=== PATIENT | male | born 1970 | race Caucasian/White ===

== ENCOUNTER 2016-10-05 14:17 | Inpatient (IN) | payer MEDICAID, OTHER ==
[2016-10-05] MEDS ORDERED: SODIUM CHLORIDE 0.9% 1,000 ML IV STA ×2 (15:03→16:19)
--- NOTE | 2016-10-05 15:46 | ED ---
General Adult HPI - General Chief complaint: Psychiatric Symptoms Stated complaint: Sucidial Time Seen by Provider: 10/05/16 15:03 Source: patient, RN notes reviewed, old records reviewed Mode of arrival: ambulatory Limitations: no limitations - History of Present Illness Initial comments: This is a 46-year-old male ER with severe depression, severe depression with suicide attempt. Patient attempted suicide and Tylenol PM. This happened yesterday, patient really has no complaints no GI illnesses no diarrhea no nausea vomiting. Patient denies any other drugs or alcohol - Related Data Home Medications Medication Instructions Recorded Confirmed Acetaminophen/Diphenhydramine 1 tab PO HS 10/05/16 10/05/16 [Tylenol PM 500-25mg] Allergies Allergy/AdvReac Type Severity Reaction Status Date / Time No Known Allergies Allergy Verified 10/05/16 21:21 Review of Systems ROS Statement: Those systems with pertinent positive or pertinent negative responses have been documented in the HPI. ROS Other: All systems not noted in ROS Statement are negative. Past Medical History Past Medical History: Hypertension Additional Past Medical History / Comment(s): 05/11/15 Pt presented to [facility] ERR with starting yesterday of vomitting blood. He had several episodes of nausea and vomitting with diffuse abdominal pain. He also had some dizziness this morning. Pt is being admitted with clinical impression of alcoholic gastitis with hemorrhage, upper GI hemorrhage, abdominal pain, alcohol intoxication, alcohol withdrawl syndrome. History of Any Multi-Drug Resistant Organisms: None Reported Past Surgical History: No Surgical Hx Reported Additional Past Anesthesia/Blood Transfusion Reaction / Comment(s): Pt has never had surgery or blood transfusion. Past Psychological History: Anxiety, Depression, Panic Disorder Additional Psychological History / Comment(s): Pt resides with his significant other. He is independent. He uses no assistive devices. He does not drive-he uses the bus to get places. He has a mood disorder. He was seen in [facility] ER with overdose-was seen by psychiatric services once he was sober and deemed not a suicidal risk. Smoking Status: Current every day smoker Past Alcohol Use History: Daily, Heavy Additional Past Alcohol Use History / Comment(s): Pt states he now drinks 3-24 ounce beers a day. He used to add in liquor but no longer does this. He is a smoker and he started smoking at age [age]yrs. He is a ppd smoker. Past Drug Use History: Prescription Drug Abuse - Past Family History Father Family Medical History: No Reported History Additional Family Medical History / Comment(s): Father is living. Pt does not believe he has any health problem. Mother Family Medical History: No Reported History Additional Family Medical History / Comment(s): Mother is living. Pt does not believe she has any health problems other than she is a smoker. Sister(s) Family Medical History: No Reported History (Patient has 3 sisters no major medical problems.) Son(s) Family Medical History: No Reported History (One son no major medical problems.) General Exam Limitations: no limitations General appearance: alert, in no apparent distress Head exam: Present: atraumatic, normocephalic, normal inspection Eye exam: Present: normal appearance, PERRL, EOMI. Absent: scleral icterus, conjunctival injection, periorbital swelling ENT exam: Present: normal exam, mucous membranes moist Neck exam: Present: normal inspection. Absent: tenderness, meningismus, lymphadenopathy Respiratory exam: Present: normal lung sounds bilaterally. Absent: respiratory distress, wheezes, rales, rhonchi, stridor Cardiovascular Exam: Present: regular rate, normal rhythm, normal heart sounds. Absent: systolic murmur, diastolic murmur, rubs, gallop, clicks GI/Abdominal exam: Present: soft, normal bowel sounds. Absent: distended, tenderness, guarding, rebound, rigid Extremities exam: Present: normal inspection, full ROM, normal capillary refill. Absent: tenderness, pedal edema, joint swelling, calf tenderness Back exam: Present: normal inspection Neurological exam: Present: alert, oriented X3, CN II-XII intact Psychiatric exam: Present: normal affect, normal mood Skin exam: Present: warm, dry, intact, normal color. Absent: rash Course Vital Signs 10/05/16 10/05/16 10/05/16 14:29 17:00 20:44 Temperature 98.0 F 98.0 F Pulse Rate 85 75 89 Respiratory 18 18 18 Rate Blood Pressure 179/103 159/88 165/87 O2 Sat by Pulse 98 98 96 Oximetry - Reevaluation(s) Reevaluation #1: 10/05/16 15:45 Patient's medically clear for psychiatric evaluation EKG Findings - EKG Comments: EKG Findings:: EKG shows normal sinus rhythm is 21, NV 146, QRS 104, QTC 445 Medical Decision Making - Medical Decision Making 46 male seen by psychiatry, patient will be admitted for psychiatric evaluation and treatment - Lab Data Result diagrams: 10/05/16 15:37 10/05/16 15:37 Lab Results 10/05/16 10/05/16 10/05/16 Range/Units 15:37 15:37 15:37 WBC 8.0 (3.8-10.6) k/uL RBC 4.31 (4.30-5.90) m/uL Hgb 13.9 (13.0-17.5) gm/dL Hct 41.6 (39.0-53.0) % MCV 96.6 (80.0-100.0) fL MCH 32.3 (25.0-35.0) pg MCHC 33.4 (31.0-37.0) g/dL RDW 13.7 (11.5-15.5) % Plt Count 77 L (150-450) k/uL Neutrophils % 74 % Lymphocytes % 14 % Monocytes % 10 % Eosinophils % 1 % Basophils % 0 % Neutrophils # 5.9 (1.3-7.7) k/uL Lymphocytes # 1.1 (1.0-4.8) k/uL Monocytes # 0.8 (0-1.0) k/uL Eosinophils # 0.1 (0-0.7) k/uL Basophils # 0.0 (0-0.2) k/uL Manual Slide Review Performed Large Platelets Present Target Cells Present PT (9.0-12.0) sec INR (<1.1) Sodium 135 L (137-145) mmol/L Potassium 3.7 (3.5-5.1) mmol/L Chloride 96 L (98-107) mmol/L Carbon Dioxide 25 (22-30) mmol/L Anion Gap 14 mmol/L BUN 4 L (9-20) mg/dL Creatinine 0.60 L (0.66-1.25) mg/dL Est GFR (MDRD) Af Amer >60 (>60 ml/min/1.73 sqM) Est GFR (MDRD) Non-Af >60 (>60 ml/min/1.73 sqM) Glucose 78 (74-99) mg/dL Calcium 9.0 (8.4-10.2) mg/dL Total Bilirubin 0.9 (0.2-1.3) mg/dL AST 92 H (17-59) U/L ALT 103 H (21-72) U/L Alkaline Phosphatase 128 H (38-126) U/L Creatine Kinase (55-170) U/L Total Creatine Kinase 1176 H (55-170) U/L CK-MB (CK-2) 3.5 H* (0.0-2.4) ng/mL CK-MB (CK-2) Rel Index 0.3 Troponin I <0.012 (0.000-0.034) ng/mL Total Protein 7.7 (6.3-8.2) g/dL Albumin 4.4 (3.5-5.0) g/dL Lipase 342 H (23-300) U/L TSH (0.465-4.680) mIU/L Salicylates <1.0 mg/dL Urine Opiates Screen (NotDetected) Ur Oxycodone Screen (NotDetected) Urine Methadone Screen (NotDetected) Ur Propoxyphene Screen (NotDetected) Acetaminophen <10.0 ug/mL Ur Barbiturates Screen (NotDetected) U Tricyclic Antidepress (NotDetected) Ur Phencyclidine Scrn (NotDetected) Ur Amphetamines Screen (NotDetected) U Methamphetamines Scrn (NotDetected) U Benzodiazepines Scrn (NotDetected) Urine Cocaine Screen (NotDetected) U Marijuana (THC) Screen (NotDetected) Serum Alcohol 172 mg/dL 10/05/16 10/05/16 10/05/16 Range/Units 15:37 15:37 15:37 WBC (3.8-10.6) k/uL RBC (4.30-5.90) m/uL Hgb (13.0-17.5) gm/dL Hct (39.0-53.0) % MCV (80.0-100.0) fL MCH (25.0-35.0) pg MCHC (31.0-37.0) g/dL RDW (11.5-15.5) % Plt Count (150-450) k/uL Neutrophils % % Lymphocytes % % Monocytes % % Eosinophils % % Basophils % % Neutrophils # (1.3-7.7) k/uL Lymphocytes # (1.0-4.8) k/uL Monocytes # (0-1.0) k/uL Eosinophils # (0-0.7) k/uL Basophils # (0-0.2) k/uL Manual Slide Review Large Platelets Target Cells PT 9.8 (9.0-12.0) sec INR 1.0 (<1.1) Sodium (137-145) mmol/L Potassium (3.5-5.1) mmol/L Chloride (98-107) mmol/L Carbon Dioxide (22-30) mmol/L Anion Gap mmol/L BUN (9-20) mg/dL Creatinine (0.66-1.25) mg/dL Est GFR (MDRD) Af Amer (>60 ml/min/1.73 sqM) Est GFR (MDRD) Non-Af (>60 ml/min/1.73 sqM) Glucose (74-99) mg/dL Calcium (8.4-10.2) mg/dL Total Bilirubin (0.2-1.3) mg/dL AST (17-59) U/L ALT (21-72) U/L Alkaline Phosphatase (38-126) U/L Creatine Kinase (55-170) U/L Total Creatine Kinase (55-170) U/L CK-MB (CK-2) (0.0-2.4) ng/mL CK-MB (CK-2) Rel Index Troponin I (0.000-0.034) ng/mL Total Protein (6.3-8.2) g/dL Albumin (3.5-5.0) g/dL Lipase (23-300) U/L TSH 2.080 (0.465-4.680) mIU/L Salicylates mg/dL Urine Opiates Screen Not Detected (NotDetected) Ur Oxycodone Screen Not Detected (NotDetected) Urine Methadone Screen Not Detected (NotDetected) Ur Propoxyphene Screen Not Detected (NotDetected) Acetaminophen ug/mL Ur Barbiturates Screen Not Detected (NotDetected) U Tricyclic Antidepress Not Detected (NotDetected) Ur Phencyclidine Scrn Not Detected (NotDetected) Ur Amphetamines Screen Not Detected (NotDetected) U Methamphetamines Scrn Not Detected (NotDetected) U Benzodiazepines Scrn Not Detected (NotDetected) Urine Cocaine Screen Not Detected (NotDetected) U Marijuana (THC) Screen Not Detected (NotDetected) Serum Alcohol mg/dL 10/05/16 Range/Units 19:43 WBC (3.8-10.6) k/uL RBC (4.30-5.90) m/uL Hgb (13.0-17.5) gm/dL Hct (39.0-53.0) % MCV (80.0-100.0) fL MCH (25.0-35.0) pg MCHC (31.0-37.0) g/dL RDW (11.5-15.5) % Plt Count (150-450) k/uL Neutrophils % % Lymphocytes % % Monocytes % % Eosinophils % % Basophils % % Neutrophils # (1.3-7.7) k/uL Lymphocytes # (1.0-4.8) k/uL Monocytes # (0-1.0) k/uL Eosinophils # (0-0.7) k/uL Basophils # (0-0.2) k/uL Manual Slide Review Large Platelets Target Cells PT (9.0-12.0) sec INR (<1.1) Sodium (137-145) mmol/L Potassium (3.5-5.1) mmol/L Chloride (98-107) mmol/L Carbon Dioxide (22-30) mmol/L Anion Gap mmol/L BUN (9-20) mg/dL Creatinine (0.66-1.25) mg/dL Est GFR (MDRD) Af Amer (>60 ml/min/1.73 sqM) Est GFR (MDRD) Non-Af (>60 ml/min/1.73 sqM) Glucose (74-99) mg/dL Calcium (8.4-10.2) mg/dL Total Bilirubin (0.2-1.3) mg/dL AST (17-59) U/L ALT (21-72) U/L Alkaline Phosphatase (38-126) U/L Creatine Kinase 994 H (55-170) U/L Total Creatine Kinase (55-170) U/L CK-MB (CK-2) (0.0-2.4) ng/mL CK-MB (CK-2) Rel Index Troponin I (0.000-0.034) ng/mL Total Protein (6.3-8.2) g/dL Albumin (3.5-5.0) g/dL Lipase (23-300) U/L TSH (0.465-4.680) mIU/L Salicylates mg/dL Urine Opiates Screen (NotDetected) Ur Oxycodone Screen (NotDetected) Urine Methadone Screen (NotDetected) Ur Propoxyphene Screen (NotDetected) Acetaminophen ug/mL Ur Barbiturates Screen (NotDetected) U Tricyclic Antidepress (NotDetected) Ur Phencyclidine Scrn (NotDetected) Ur Amphetamines Screen (NotDetected) U Methamphetamines Scrn (NotDetected) U Benzodiazepines Scrn (NotDetected) Urine Cocaine Screen (NotDetected) U Marijuana (THC) Screen (NotDetected) Serum Alcohol mg/dL Disposition Clinical Impression: Suicidal ideation, Acute anxiety, Alcohol withdrawal, Alcohol intoxication Disposition: TRANSFER TO PSYCH HOSP/UNIT Condition: Fair
[2016-10-05 15:50] LABS: Basophils % (A) 0 %; CH 33.1; CHCM 34.4; Eosinophils # (A) 0.1 k/uL (0-0.7); Eosinophils % (A) 1 %; HCT 41.6 % (39.0-53.0); HDW 2.13; HGB 13.9 gm/dL (13.0-17.5); Luc # (Auto) 0.12; Luc % (Auto) 2; Lymphocytes # (A) 1.1 k/uL (1.0-4.8); Lymphocytes % (A) 14 %; MCH 32.3 pg (25.0-35.0); MCHC 33.4 g/dL (31.0-37.0); MCV 96.6 fL (80.0-100.0); Mean Platelet Volume 8.9; Monocytes # (A) 0.8 k/uL (0-1.0); Monocytes % (A) 10 %; Neutrophils # (A) 5.9 k/uL (1.3-7.7); Neutrophils % (A) 74 %; RBC 4.31 m/uL (4.30-5.90); RDW 13.7 % (11.5-15.5); WBC (Perox) 7.98
[2016-10-05 15:53] LABS: Prothrombin Time 9.8 sec (9.0-12.0)
[2016-10-05 15:59] LABS: ALT 103 U/L (21-72); AST 92 U/L (17-59); Acetaminophen <10.0 ug/mL; Alkaline Phosphatase 128 U/L (38-126); Anion Gap 14 mmol/L; Blood Urea Nitrogen 4 mg/dL (9-20); Carbon Dioxide 25 mmol/L (22-30); Chloride 96 mmol/L (98-107); Glucose 78 mg/dL (74-99); Non-African American GFR(MDRD) >60 (>60 ml/min/1.73 sqM); Potassium 3.7 mmol/L (3.5-5.1); Salicylate <1.0 mg/dL; Sodium 135 mmol/L (137-145); Total Bilirubin 0.9 mg/dL (0.2-1.3); Total Protein 7.7 g/dL (6.3-8.2)
[2016-10-05 16:02] LABS: Alcohol 172 mg/dL
[2016-10-05 16:12] LABS: Manual Review Performed
[2016-10-05 16:13] LABS: Large Platelets Present; Target Cells Present
[2016-10-05 16:14] LABS: Creatine Kinase 1176 U/L (55-170)
[2016-10-05 16:26] LABS: Troponin I <0.012 ng/mL (0.000-0.034)
[2016-10-05 16:28] LABS: Creatine Kinase MB 3.5 ng/mL (0.0-2.4)
[2016-10-05] MEDS: NICOTINE 21MG/24HR PATCH TRANSDERM STA (19:30)
[2016-10-05] MEDS ORDERED: LORazepam 2 MG/ML SYRINGE IV PRN ×3 (19:43)
[2016-10-06] MEDS ORDERED: MAG HYDROX/AL HYDROX/SIMETH 30 ML CUP PO PRN (00:27)
[2016-10-06] MEDS ORDERED: MAGNESIUM HYDROXIDE 2,400 MG/10 ML CUP PO PRN (00:27)
[2016-10-06] MEDS: LORazepam 1 MG TAB PO PRN ×2 (00:53→08:16)
[2016-10-06] MEDS ORDERED: cloNIDine HCL 0.2 MG TAB PO STA ×2 (05:39→14:52)
[2016-10-06] MEDS: NICOTINE 14MG/24HR PATCH TRANSDERM SCH (08:15)
[2016-10-06] MEDS: NICOTINE 21MG/24HR PATCH TRANSDERM STA ×2 (14:35→14:36)
[2016-10-06] MEDS ORDERED: OLANZapine 5 MG TAB PO STA (14:51)
--- NOTE | 2016-10-06 15:41 | P.HPMEDMHU ---
History of Present Illness H&P Date: 10/06/16 Chief Complaint: Depression. This is a 46-year-old male with a previous medical history significant for major depressive disorder who tried to overdose on Tylenol PM last night he took a bunch of pills and drank 2 beers and he ended up passing out hitting his head was seen and evaluated in the emergency department at [facility] yesterday he was admitted to the mental health unit for evaluation we are asked to see the patient for medical management. Sitting up in chair is complaining of increased pain left shoulder he denies any chest pain or shortness breath he has no abdominal pain nausea vomiting or diarrhea. Patient denies any headache he denies any blurred vision or double vision. Patient stated that he is feeling so depressed because he lost his fiance on . And he tried to kill himself many years ago but he was not successful. He did not go into details with me. Review of Systems Constitutional: Denies anorexia, Denies chronic headaches, Denies lethargy, Denies malaise, Denies weight gain, Denies weight loss Eyes: denies blurred vision, denies bulging eye, denies decreased vision, denies diplopia Ears, nose, mouth and throat: Denies dysphagia, Denies neck lump, Denies sore throat, Denies vertigo Cardiovascular: Denies chest pain, Denies decreased exercise tolerance, Denies dyspnea on exertion, Denies rapid heart beat, Denies shortness of breath, Denies syncope Respiratory: Denies congestion, Denies cough with sputum, Denies home oxygen, Denies snoring, Denies wheezing Gastrointestinal: Reports abdominal pain, Reports heartburn, Reports nausea, Reports vomiting, Denies bloating, Denies BRBPR, Denies coffee ground emesis, Denies hematemesis, Denies hematochezia, Denies melena Genitourinary: Denies dysuria Musculoskeletal: Denies myalgias Musculoskeletal: left: shoulder pain, shoulder stiffness, absent: ankle pain, ankle stiffness, ankle swelling, elbow pain, elbow stiffness, elbow swelling, foot pain, foot stiffness, foot swelling, hand pain, hand stiffness, hand swelling, hip pain, hip stiffness, hip swelling, knee pain, knee stiffness, knee swelling, shoulder swelling, wrist pain, wrist stiffness, wrist swelling Integumentary: Denies pruritus, Denies rash Neurological: Denies numbness, Denies weakness Psychiatric: Reports anxiety, Reports depression, Reports sleep disturbances, Reports suicidal ideation Endocrine: Denies fatigue, Denies weight change Past Medical History Past Medical History: Hypertension Additional Past Medical History / Comment(s): 05/11/15 Pt presented to [facility] ERR with starting yesterday of vomitting blood. He had several episodes of nausea and vomitting with diffuse abdominal pain. He also had some dizziness this morning. Pt is being admitted with clinical impression of alcoholic gastitis with hemorrhage, upper GI hemorrhage, abdominal pain, alcohol intoxication, alcohol withdrawl syndrome. History of Any Multi-Drug Resistant Organisms: None Reported Past Surgical History: No Surgical Hx Reported Additional Past Anesthesia/Blood Transfusion Reaction / Comment(s): Pt has never had surgery or blood transfusion. Past Psychological History: Anxiety, Depression, Panic Disorder Additional Psychological History / Comment(s): Pt resides with his significant other. He is independent. He uses no assistive devices. He does not drive-he uses the bus to get places. He has a mood disorder. He was seen in [facility] ER with overdose-was seen by psychiatric services once he was sober and deemed not a suicidal risk. Smoking Status: Current every day smoker (Patient smokes about half a pack every day he smoked since he was in his teens) Past Alcohol Use History: Daily, Heavy Additional Past Alcohol Use History / Comment(s): Pt states he now drinks 3-24 ounce beers a day. He used to add in liquor but no longer does this. He is a smoker and he started smoking at age [age]yrs. He is a ppd smoker. Past Drug Use History: Prescription Drug Abuse - Past Family History Father Family Medical History: No Reported History (Father 65-year-old has no major medical problems.) Additional Family Medical History / Comment(s): Father is living. Pt does not believe he has any health problem. Mother Family Medical History: No Reported History (Mother is 60-year-old has no major medical problems) Additional Family Medical History / Comment(s): Mother is living. Pt does not believe she has any health problems other than she is a smoker. Sister(s) Family Medical History: No Reported History (Patient has 3 sisters no major medical problems.) Son(s) Family Medical History: No Reported History (One son no major medical problems.) Medications and Allergies Home Medications Medication Instructions Recorded Confirmed Type Acetaminophen/Diphenhydramine 1 tab PO HS 10/05/16 10/05/16 History [Tylenol PM 500-25mg] Allergies Allergy/AdvReac Type Severity Reaction Status Date / Time No Known Allergies Allergy Verified 10/05/16 21:21 Physical Exam Vitals: Vital Signs Temp Pulse Pulse Resp BP BP Pulse Ox 10/06/16 14:39 96 16 134/86 10/06/16 08:20 99 16 126/89 10/06/16 07:21 100.8 F H 92 16 153/91 10/06/16 06:45 99 18 157/107 10/06/16 05:50 97.8 F 86 18 181/108 10/05/16 20:44 98.0 F 89 18 165/87 96 - Constitutional General appearance: no acute distress - EENT Eyes: anicteric sclerae, disc margins sharp, PERRLA, no ptosis, no scleral icterus, normal appearance (Bilateral ecchymosis around both orbits) ENT: hearing grossly normal, normal oropharynx, no thrush Ears: bilateral: normal - Neck Neck: no lymphadenopathy, normal ROM, no rigidity, no stridor, no thyromegaly Carotids: bilateral: upstroke normal Thyroid: bilateral: normal size - Respiratory Respiratory: bilateral: diminished, negative: dullness, rales, rhonchi, wheezing , prolonged expiration - Cardiovascular Rhythm: regular Heart sounds: normal: S1, S2 Abnormal Heart Sounds: no systolic murmur, no diastolic murmur, no rub, no S3 Gallop, no S4 Gallop, no click - Gastrointestinal General gastrointestinal: normal bowel sounds, soft, no splenomegaly, no tenderness, no umbilical hernia, no ventral hernia - Integumentary Integumentary: normal, normal turgor - Neurologic Neurologic: CNII-XII intact - Musculoskeletal Musculoskeletal: gait normal, strength equal bilaterally - Psychiatric Psychiatric: A&O x's 3, no appropriate affect, no intact judgment & insight Cranial Nerve Examination - Cranial Nerves Cranial Nerve I- Olfactory: Intact Cranial Nerve II- Optic: Intact Cranial Nerve III- Oculomotor: Intact Cranial Nerve IV- Trochlear: Intact Cranial Nerve V- Trigeminal: Intact Cranial Nerve - Abducens: Intact Cranial Nerve VII- Facial: Intact Cranial Nerve VIII- Auditory: Intact Cranial Nerve IX- Glossopharyngeal: Intact Cranial Nerve X- Vagus: Intact Cranial Nerve XI- Accessory: Intact Cranial Nerve XII- Hypoglossal: Intact Results CBC & Chem 7: 10/05/16 15:37 10/05/16 15:37 Assessment and Plan Plan: Assessment and plan: 1. Major depressive disorder with suicidal ideation with overdosed on Tylenol. There is no evidence of any acute abnormalities at this point in time. We'll continue to monitor the patient very closely. Patient was admitted to the mental health unit. He will be seen by psychiatry, we will start the patient on treatment with group therapy. 2. Bilateral ecchymosis of both orbits due to recent fall no evidence of any injury at this point in time we'll continue to monitor the patient very closely. 3. Elevated blood pressure without diagnosis of hypertension. Monitor the blood pressure very closely the last measurement was normal. Continue patient on clonidine 0.2 mg orally twice every day. 4. Left shoulder pain. We will obtain x-ray of the left shoulder. 5. Chronic tobacco use and dependence. Smoking cessation counseling an increased risk of CAD, CVA, and malignancy. 6. Chronic Etoh use and dependence. Abstinence from alcohol. 7. THC use. Stable at this time. 8. Thanks for the consult we will follow with you.
--- NOTE | 2016-10-06 16:33 | HP ---
DATE OF ADMISSION: 10/05/2016 IDENTIFYING DATA: Patient is a 46-year-old male, 1970. He is homeless. He presented through the emergency room. CHIEF COMPLAINT: The patient was depressed. He had suicidal thoughts. He had taken an overdose of a " handful of Tylenol", on the day prior to admission he had gotten dizzy and had a fall apparently breaking his nose. He had significant alcohol use. HISTORY OF PRESENTING ILLNESS: Patient reports long-term problems with depression. He had a psychiatric hospitalization. He had one psychiatric hospitalization about 3 years ago in [place] for depression with suicidal thinking. He is not currently on any psychotropic medication. He says his primary stress is that on , he was sleeping. He woke up for work and his girlfriend with whom he was living with had in her sleep presumably of an ME. Since then, he went into deep grief and depression. He has had problems with depression going back to his early 30s. He reports a lot of history of anxiety and a lot of panic attacks. He says of late the panic attacks themselves have quieted down. He was sleeping poorly. He has hopeless and helpless feelings. He has loss of motivation, energy and interest. 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 He has lost the apartment that the 2 of them were living in. He is currently homeless. He had persistent suicide thoughts since she . He had been on psychotropic medications in the past, though none currently. He is not involved in any mental health follow-up. He notes significant past problems with alcohol dependence. He has been in two rehab facilities with the last being about 3-1/2 years ago at [place] [facility]. He says following that admission, he was sober for about 6 months. Four years ago he had gone through a rehabilitation and was sober for year at that time. Currently he has been drinking on a daily basis. Typically he drinks about 10 beers a day. He has been sleeping poorly. He has loss of motivation, energy and interest. He denies issues with hallucinations or delusions, posttraumatic symptoms or obsessive-compulsive symptoms. He is admitted for further evaluation. Substance use history: As above. He denies use of other abusive substances besides alcohol. MEDICAL HISTORY: None. He has had 2 concussions in his 20s. He has had seizures as he describes "several times that were caused by a lack of sleep." Further medical history, review of systems and physical exam as per medical consultation. SOCIAL HISTORY: The patient is homeless. 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 MENTAL STATUS EXAM: Patient was somewhat disheveled in appearance. Eye contact was fair. Psychomotor activity was slow. Speech was monotone. It was noteworthy that the patient had prominent ecchymosis under each eye. He responded appropriately to questions. His thoughts were clear. He did not say a lot. His answers were brief. He was not spontaneous or interactive. His affect was flat. His mood depressed. He was significantly distressed. ASSESSMENT: Patient is diagnosed with major depression, severe grief reaction and alcohol dependence. He has a very limited social support network. He will need attention to alcohol detox and withdrawal as well as mood disorder and addressing his social difficulties. DIAGNOSES: 1. Major depression, chronic and recurrent. 2. Alcohol dependence, continuous. 3. Anxiety disorder. RECOMMENDATIONS: Patient will be admitted for comprehensive medical, psychiatric and psychosocial evaluation. We will make efforts to engage the patient in individual and group therapeutic activities. The patient has had a high blood pressure. Yesterday evening he was running pressures in the 160 to 100 range. He has received both Ativan and clonidine for withdrawal-related symptoms. His blood pressure as of 1439 is 134/86 with a pulse of 96. This morning he had a temperature at 7:20 a.m. of 100.8. He has been started on withdrawal protocol, utilizing [facility] parameters. I will start the patient on Zyprexa 5 mg 3 times a day. The aim of Zyprexa is to help reduce withdrawal symptoms and to reduce his acute grief reaction and severe anxiety symptoms, in addition I will start the patient on clonidine 0.2 mg twice a day. Clonidine is aimed at managing hypertension as well as helping ameliorate withdrawal symptoms. We will focus on stabilization and discharge planning.
[2016-10-06] MEDS: OLANZapine 5 MG TAB PO SCH ×2 (16:38→20:30)
--- NOTE | 2016-10-06 17:54 | XR ---
EXAMINATION TYPE: XR shoulder complete LT DATE OF EXAM: 10/06/2016 5:47 PM COMPARISON: NONE HISTORY: Shoulder pain TECHNIQUE: 3 views FINDINGS: I see no fracture nor dislocation. Joint spaces are normal. There are no pathologic calcifi cations. IMPRESSION: Negative left shoulder exam.
[2016-10-06] MEDS: cloNIDine HCL 0.2 MG TAB PO SCH (20:30)
[2016-10-07] MEDS: LORazepam 1 MG TAB PO PRN (03:37)
[2016-10-07] MEDS: NICOTINE 14MG/24HR PATCH TRANSDERM SCH (08:11)
[2016-10-07] MEDS: OLANZapine 5 MG TAB PO SCH ×2 (08:11→16:20)
[2016-10-07] MEDS: cloNIDine HCL 0.2 MG TAB PO SCH ×2 (08:12→21:18)
[2016-10-07] MEDS: ACETAMINOPHEN TAB 325 MG TAB PO PRN ×2 (14:47→19:02)
[2016-10-07] MEDS ORDERED: OLANZapine 5 MG TAB PO PRN (16:49)
[2016-10-07] MEDS: OLANZapine 10 MG TAB PO SCH (21:19)
[2016-10-08] MEDS: ACETAMINOPHEN TAB 325 MG TAB PO PRN ×3 (03:46→16:31)
--- NOTE | 2016-10-08 08:10 | PN ---
DATE OF SERVICE: 10/07/2016 CHIEF COMPLAINT: The patient was depressed. He had suicidal thoughts. He had taken an overdose of a " handful of Tylenol", on the day prior to admission he had gotten dizzy and had a fall apparently breaking his nose. He had significant alcohol use. INTERVAL HISTORY: Patient has been doing fair. He continues to be quite withdrawn. He does come out in the day area. He wanders about. He attends groups. Typically he presents in rather bland withdrawn way. He will contribute to the group discussion. He still seems withdrawn. At times he has been tearful. It is noted that this morning at 3:30 in the morning, he received Ativan 1 mg for alcohol withdrawal and anxiety, though his vital signs have been stable with no signs of alcohol detox or withdrawal issues and his CIWA has been scored as showing minimal withdrawal issues. In fact his CIWA at 1030 on the fourth was one. Patient today says he is doing about the same. He does not see any improvement in his mood. He has continued to attend groups. His CIWA score remains low. He does not interact with others, though he seems to keep himself out on the unit a fair amount of the time. He has not had change in his general health. He tolerates his psychotropic medications. MENTAL STATUS: Patient was in the day area. He gave fair eye contact. Psychomotor activity was slow. Speech is monotone. He answered questions with 1 or 2 word responses. His affect was flat. His mood reserved. He seemed somewhat distressed and worried. ASSESSMENT: I will continue the current diagnosis and treatment plan. We will continue psychotropic medications the same. However, I will increase his Zyprexa from 5 mg 3 times a day up to 10 mg twice a day. I would note that there is little indication for medications for alcohol withdrawal. Both vital signs and other signs of withdrawal have not been present. I will discontinue Ativan. I will add Zyprexa 5 mg b.i.d. p.r.n. for anxiety. We will continue to focus on stabilization and discharge planning.
[2016-10-08] MEDS: NICOTINE 14MG/24HR PATCH TRANSDERM SCH (08:22)
[2016-10-08] MEDS: cloNIDine HCL 0.2 MG TAB PO SCH ×2 (08:23→21:00)
[2016-10-08] MEDS: OLANZapine 10 MG TAB PO SCH (08:23)
[2016-10-08] MEDS ORDERED: traZODone HCL 100 MG TAB PO PRN (13:12)
--- NOTE | 2016-10-08 14:21 | P.PN ---
Progress Note - Text SUBJECTIVE: Patient endorses:poor appetite with 25 LBS weight loss since August,poor sleep despite having Zyprexa,recurrent dreams about his girlfriend , also endorses hands tremors,lot of guilt feeling towards girlfriend "We were doing lot of [place] and Hydrocodone ,I found out that she bought pain medications with 300 dollars before she in her sleep " lot of resentment between patient and her family ,patient was staying in [facility] for last 3-4 weeks, does not have job or support system in the area .he has one daughter 4 years old living in [place] with patient ex sridevi"I did not see her for two years" Patient is feeling hopeless and helpless ,insight to his SA is limited MENTAL STATUS EXAM: Patient is disheveled ,poor grooming ,rhodes and moustache ,unkept,speech is coherent ,tearful when talking about his girlfriend ,denies psychotic features or andrea ,endorses suicidal ideation and wish ,psychomotor retardation ,limited insight PLAN: 1)Discontinue Zyprexa ,start Celexa for Depression 2) Start Neurontin for anxiety and alcoholism 3) Start Trazodone PRN for sleep 4)Encourage groups participation ,will continue to monitor suicidal ideation and level of depression
[2016-10-08] MEDS: GABAPENTIN 100 MG CAP PO SCH ×2 (16:30→21:00)
[2016-10-08] MEDS: LORazepam 1 MG TAB PO PRN (16:31)
[2016-10-09] MEDS: ACETAMINOPHEN TAB 325 MG TAB PO PRN ×3 (06:11→18:40)
[2016-10-09] MEDS: NICOTINE 14MG/24HR PATCH TRANSDERM SCH (08:30)
[2016-10-09] MEDS: CITALOPRAM HYDROBROMIDE 20 MG TAB PO SCH (08:30)
[2016-10-09] MEDS: cloNIDine HCL 0.2 MG TAB PO SCH ×2 (08:30→21:35)
[2016-10-09] MEDS: GABAPENTIN 100 MG CAP PO SCH (08:30)
--- NOTE | 2016-10-09 09:36 | P.PN ---
Subjective Principal diagnosis: SUBJECTIVE: Patient endorses poor appetite , middle insomnia,feeling overwhelmed with ongoing stress :loss of girl friend ,no income ,no housing and unable to maintain job ,patient was tearful talking about being estranged from family for at least 3-4 years, his mother in [place] as well as two of his siblings , sister living in [place] ,patient does not have any support system ,patient endorses feeling helpless and struggling with lot of guilt feeling He stated that he used to have Trazodone 300 mg for depression and sleep and was effective,he endorses hands tremors "Most of my life ,even when I was sober ",reports pain in left Shoulder MENTAL STATUS EXAM: Patient is disheveled ,poor grooming ,rhodes and moustache ,unkept,speech is coherent ,tearful when talking about his girlfriend ,denies psychotic features or andrea ,endorses suicidal ideation and wish ,psychomotor retardation ,somatic preoccupied ,insight and judgment are limited ASSESSMENT: Patient is still endorsing severe depression ,grief and high anxiety PLAN: Increase Neurontin for anxiety ,trazodone as schedule dose for sleep ,monitor any withdrawals symptoms ,continue Celexa 20 mg daily ,encourage participation in groups therapy Objective - Vital Signs Vital signs: Vital Signs Temp 97.6 F 10/08/16 06:09 Pulse 90 10/09/16 06:15 Resp 18 10/09/16 06:15 BP 120/85 10/09/16 06:15 Pulse Ox 96 10/05/16 20:44 - Labs CBC & Chem 7: 10/05/16 15:37 10/05/16 15:37
[2016-10-09] MEDS: LORazepam 1 MG TAB PO PRN ×2 (10:31→21:35)
[2016-10-09] MEDS: GABAPENTIN 300 MG CAP PO SCH ×2 (16:18→21:35)
[2016-10-09] MEDS: traZODone HCL 50 MG TAB PO SCH (21:35)
[2016-10-10] MEDS: NICOTINE 14MG/24HR PATCH TRANSDERM SCH (09:15)
[2016-10-10] MEDS: cloNIDine HCL 0.2 MG TAB PO SCH ×2 (09:15→20:36)
[2016-10-10] MEDS: GABAPENTIN 300 MG CAP PO SCH ×3 (09:15→20:36)
[2016-10-10] MEDS: CITALOPRAM HYDROBROMIDE 20 MG TAB PO SCH (09:15)
[2016-10-10] MEDS: LORazepam 1 MG TAB PO PRN (09:17)
[2016-10-10] MEDS: IBUPROFEN 800 MG TAB PO PRN ×2 (09:18→16:34)
--- NOTE | 2016-10-10 12:58 | P.PN ---
Progress Note - Text SUBJECTIVE: Patient endorses severe depression with suicidal ideation "I wish not waking up in morning so I can be with my girlfriend",stated that he does see her in [place] "I know it is not real but I am seeing her here especially evening time:, endorsing hopeless and helpless feeling ,guilt feeling ,poor concentration and easy distracted PER NURSING STAFF:patient slept 6 hours ,participating in groups activities MENTAL STATUS EXAM: Patient is disheveled ,poor grooming ,rhodes and moustache ,unkept,speech is coherent ,tearful when talking about his girlfriend , seeing his girl friend on the unit,endorses suicidal ideation and wish , psychomotor retardation ,somatic preoccupied ,insight and judgment are limited ASSESSMENT: Patient is still endorsing severe depression and complicated grief PLAN: Increase Celexa to 40 mg daily ,continue Neurontin and Trazodone,decrease PRN Ativan,encourage participation in groups therapy,will consider adding low dose of anti psychotic if symptom will not improve with higher dose of Celexa
[2016-10-10] MEDS: LORazepam 0.5 MG TAB PO PRN (16:35)
[2016-10-10] MEDS: traZODone HCL 50 MG TAB PO SCH (20:36)
[2016-10-11] MEDS: CITALOPRAM HYDROBROMIDE 20 MG TAB PO SCH (09:19)
[2016-10-11] MEDS: cloNIDine HCL 0.2 MG TAB PO SCH ×3 (09:19→20:42)
[2016-10-11] MEDS: GABAPENTIN 300 MG CAP PO SCH ×3 (09:19→20:41)
[2016-10-11] MEDS: NICOTINE 14MG/24HR PATCH TRANSDERM SCH (09:19)
--- NOTE | 2016-10-11 14:46 | P.PN ---
Progress Note - Text SUBJECTIVE: Patient endorses:poor sleep ,nightmares ,crying spell, guilt feeling ,does see his girlfriend and "Sometimes I can hear her voice calling me",rates his depression 05/12 ,10 being the worse,still endorsing suicidal ideation "I want to be with her" Patient is feeling hopeless and helpless ,insight to his SA is limited MENTAL STATUS EXAM: Patient is disheveled ,poor grooming ,rhodes and moustache ,unkept,speech is coherent ,tearful when talking about his girlfriend ,denies psychotic features or andrea ,endorses suicidal ideation and wish ,psychomotor retardation ,limited insight PLAN: Adding low dose Abilify as augmentation ,continue Citalopram ,Trazodone and Neurontin Encourage groups participation ,will continue to monitor suicidal ideation and level of depression
[2016-10-11] MEDS: LORazepam 0.5 MG TAB PO PRN (16:30)
[2016-10-11] MEDS: IBUPROFEN 800 MG TAB PO PRN (19:26)
[2016-10-11] MEDS: traZODone HCL 50 MG TAB PO SCH (20:41)
[2016-10-12] MEDS: cloNIDine HCL 0.2 MG TAB PO SCH ×2 (08:41→21:25)
[2016-10-12] MEDS: GABAPENTIN 300 MG CAP PO SCH ×3 (08:41→21:26)
[2016-10-12] MEDS: NICOTINE 21MG/24HR PATCH TRANSDERM SCH (08:41)
[2016-10-12] MEDS: LORazepam 0.5 MG TAB PO PRN (08:41)
[2016-10-12] MEDS: IBUPROFEN 800 MG TAB PO PRN ×2 (08:41→16:14)
[2016-10-12] MEDS: CITALOPRAM HYDROBROMIDE 20 MG TAB PO SCH (08:41)
[2016-10-12] MEDS ORDERED: ARIPiprazole 2 MG TAB PO SCH (09:00)
--- NOTE | 2016-10-12 14:18 | P.PN ---
Progress Note - Text SUBJECTIVE: Patient endorses severe depression with suicidal ideation ,lot of anger and complain towards some of staff , somatic c/o and rates his left shoulder pain "Motrin is not strong enough",patient had hx of opium abuse and I discussed with him cross addiction ,patient verbalized understanding ,endorsing hopeless and helpless feeling ,guilt feeling related to of his girl friend of three years PER NURSING STAFF:patient slept 6 hours ,participating in groups activities, still asking for PRN Ativan for anxiety MENTAL STATUS EXAM: Patient is casually dressed ,poor grooming ,rhodes and moustache ,,speech is coherent ,irritable mood and angry demeanor, ,endorses suicidal ideation and wish ,psychomotor agitation ,somatic preoccupied ,insight and judgment are limited ASSESSMENT: Patient is still endorsing depression ,anxiety and suicidal ideation PLAN: 1) Discontinue Ativan ,start PRN Vistaril for anxiety 2) Increase Abiligy to 5 mg as augmentation 3) Continue :Celexa ,Trazodone and Neurontin ,same doses 4) Monitor suicidal ideation on daily basis
[2016-10-12] MEDS: hydrOXYzine PAMOATE 25 MG CAP PO PRN (16:14)
[2016-10-12] MEDS: traZODone HCL 50 MG TAB PO SCH (21:25)
[2016-10-12] MEDS: ACETAMINOPHEN TAB 325 MG TAB PO PRN (21:28)
--- NOTE | 2016-10-13 09:14 | P.PN ---
Progress Note - Text Interval history: The patient is found in the hallway he follows me to an interview room. He was admitted to the mental health unit with acute suicidal ideation. He states prior to this admission he had been off his medication for numerous months and he also suffered a traumatic event with his fiance dying the day before [place]. He states he feels depressed he is tearful he has hopeless thinking and he continues to have suicidal thinking. We reviewed his medications he has no questions regarding them. He reports attending groups. Mental status exam: The patient is alert he seated calmly he has limited eye contact. He is dressed in his own clothing hygiene grooming fair. He endorses a depressed mood with ongoing suicidal thoughts. He is tearful during the interview. He otherwise maintains a very bland affect. He is reporting no homicidal ideation there is no report of psychosis. He does not appear hypomanic or manic there is no agitated behavior. He demonstrates no verbal or physical aggressiveness. Insight and judgment limited. He is oriented to person place and date. Plan: The patient will continue on his current psychotropic medications. Vital signs reviewed. We will continue to monitor him for safety he is encouraged to continue participating in the milieu. He requires continued psychiatric hospitalization for acute safety reasons.
[2016-10-13] MEDS: ARIPiprazole 5 MG TAB PO SCH (09:30)
[2016-10-13] MEDS: NICOTINE 21MG/24HR PATCH TRANSDERM SCH (09:30)
[2016-10-13] MEDS: GABAPENTIN 300 MG CAP PO SCH ×3 (09:30→21:10)
[2016-10-13] MEDS: hydrOXYzine PAMOATE 25 MG CAP PO PRN (09:30)
[2016-10-13] MEDS: cloNIDine HCL 0.2 MG TAB PO SCH ×2 (09:30→21:10)
[2016-10-13] MEDS: CITALOPRAM HYDROBROMIDE 20 MG TAB PO SCH (09:30)
[2016-10-13] MEDS: IBUPROFEN 800 MG TAB PO PRN ×2 (09:31→21:10)
[2016-10-13] MEDS: traZODone HCL 50 MG TAB PO SCH (21:10)
[2016-10-14] MEDS: ARIPiprazole 5 MG TAB PO SCH (08:58)
[2016-10-14] MEDS: cloNIDine HCL 0.2 MG TAB PO SCH ×2 (08:58→21:41)
[2016-10-14] MEDS: GABAPENTIN 300 MG CAP PO SCH ×3 (08:58→21:41)
[2016-10-14] MEDS: CITALOPRAM HYDROBROMIDE 20 MG TAB PO SCH (08:58)
[2016-10-14] MEDS: NICOTINE 21MG/24HR PATCH TRANSDERM SCH (08:58)
[2016-10-14] MEDS: hydrOXYzine PAMOATE 25 MG CAP PO PRN (08:59)
[2016-10-14] MEDS: IBUPROFEN 800 MG TAB PO PRN ×2 (08:59→16:20)
--- NOTE | 2016-10-14 12:05 | P.PN ---
Progress Note - Text Interval history: The patient is found in the hallway he follows me to an interview room. He reports he continues to feel very depressed he continues to have hopelessness thinking and suicidal thoughts. He reports that the mornings started off better but after breakfast he starts having thoughts of his loss and that things will not get better. He describes having some shoulder pain and requests Motrin. He has nobody for support so he states he's received no phone calls or visits. Mental status exam: The patient is alert he is dressed in his own clothing hygiene grooming fair. He endorses a depressed mood with hopelessness thinking and ongoing suicidal thoughts. He endorses no thoughts of harming others she is reporting no auditory or visual hallucinations. There is no evidence of hypomanic or manic symptoms no evidence of psychosis. He demonstrates no verbal or physical aggressiveness. Thought process is linear he demonstrates no tangential thinking, loose associations or flight of ideas. Insight and judgment limited. He is oriented to person place and date. Plan: The patient will continue on his current psychotropic medications. I will add Motrin as needed for pain. We will continue to monitor him for safety and encourage his participation in the milieu. Vital signs reviewed.
[2016-10-14] MEDS: ACETAMINOPHEN TAB 325 MG TAB PO PRN (12:09)
[2016-10-14] MEDS: traZODone HCL 50 MG TAB PO SCH (21:41)
[2016-10-15] MEDS: CITALOPRAM HYDROBROMIDE 20 MG TAB PO SCH (08:59)
[2016-10-15] MEDS: GABAPENTIN 300 MG CAP PO SCH ×3 (08:59→21:04)
[2016-10-15] MEDS: NICOTINE 21MG/24HR PATCH TRANSDERM SCH (08:59)
[2016-10-15] MEDS: ARIPiprazole 5 MG TAB PO SCH (09:00)
[2016-10-15] MEDS: cloNIDine HCL 0.2 MG TAB PO SCH ×2 (09:00→21:04)
--- NOTE | 2016-10-15 14:28 | P.PN ---
Progress Note - Text SUBJECTIVE: Patient endorses depression with suicidal ideation "I am the same ,I am still suicidal",I discussed treatment options and possibility to change medications , he replied "It is helping but only 25%",he is somatic preoccupied and asking to have [place] "I just need it twice a day "I tried to discuss his cross addiction but he became very defensive ,irritable mood "I was very agitated for last couple of days ,one of patient was disrespectful " Patient stated that Vistaril is helping his anxiety PER NURSING STAFF:patient slept 4-6 hours ,participating in groups activities MENTAL STATUS EXAM: Patient is disheveled ,poor grooming ,rhodes and moustache ,unkept,speech is coherent ,,endorses suicidal ideation and wish ,psychomotor retardation , somatic preoccupied ,insight and judgment are limited ASSESSMENT: Patient is still endorsing depression and irritable mood ,drugs seeking for opium medication PLAN:Increase Neurontin for pain and as mood stabilizer ,continue rest of psychotropic medications. We will continue to monitor him for safety he is encouraged to continue participating in the milieu. He requires continued psychiatric hospitalization for acute safety reasons.
[2016-10-15] MEDS: IBUPROFEN 800 MG TAB PO PRN (14:53)
[2016-10-15] MEDS: hydrOXYzine PAMOATE 25 MG CAP PO PRN (14:55)
[2016-10-15] MEDS: traZODone HCL 50 MG TAB PO SCH (21:04)
[2016-10-16] MEDS: cloNIDine HCL 0.2 MG TAB PO SCH (06:02)
[2016-10-16] MEDS: NICOTINE 21MG/24HR PATCH TRANSDERM SCH (09:28)
[2016-10-16] MEDS: CITALOPRAM HYDROBROMIDE 20 MG TAB PO SCH (09:28)
[2016-10-16] MEDS: ARIPiprazole 5 MG TAB PO SCH ×2 (09:29→16:11)
[2016-10-16] MEDS: GABAPENTIN 300 MG CAP PO SCH ×3 (09:29→20:55)
[2016-10-16] MEDS: IBUPROFEN 800 MG TAB PO PRN ×2 (09:29→16:11)
--- NOTE | 2016-10-16 10:57 | P.PN ---
Progress Note - Text Interval history: He slept through night ,still endorsing depression , hopeless thinking and he continues to have suicidal thinking. He endorses paranoia and suspicious feeling "I am a loner person ,I can not trust people ,",denies any hallucination as he does feel that adding Abilify is helping "I DO NOT SEE MY GIRL FRIEND SO OFTEN" We reviewed his medications he has no questions regarding them. He reports attending groups. VITALS:Temp:97.5 ,Pulse :75 ,Respiration:16 ,Blood Pressure:92/51 Mental status exam: The patient is alert he seated calmly he has limited eye contact. He is dressed in his own clothing hygiene grooming fair. He endorses a depressed mood with ongoing suicidal thoughts. He is tearful during the interview. He otherwise maintains a very bland affect. He is reporting no homicidal ideation ,some paranoias. He does not appear hypomanic or manic there is no agitated behavior. He demonstrates no verbal or physical aggressiveness. Insight and judgment limited. He is oriented to person place and date. Plan: Will increase Abilify to 5 mg BID ,continue rest of medications regime. his blood Pressure running low ,will decrease Catapress dose and continue to monitor Vitals We will continue to monitor him for safety he is encouraged to continue participating in the milieu. He requires continued psychiatric hospitalization for acute safety reasons.
[2016-10-16] MEDS: cloNIDine HCL 0.1 MG TAB PO SCH (20:55)
[2016-10-16] MEDS: traZODone HCL 50 MG TAB PO SCH (20:55)
[2016-10-17] MEDS: CITALOPRAM HYDROBROMIDE 20 MG TAB PO SCH (08:44)
[2016-10-17] MEDS: NICOTINE 21MG/24HR PATCH TRANSDERM SCH (08:44)
[2016-10-17] MEDS: IBUPROFEN 800 MG TAB PO PRN ×2 (08:45→21:09)
[2016-10-17] MEDS: GABAPENTIN 300 MG CAP PO SCH ×3 (08:45→20:48)
[2016-10-17] MEDS: ARIPiprazole 5 MG TAB PO SCH ×2 (08:45→16:57)
[2016-10-17] MEDS: cloNIDine HCL 0.1 MG TAB PO SCH ×2 (08:45→20:48)
[2016-10-17] MEDS: ACETAMINOPHEN TAB 325 MG TAB PO PRN (16:16)
--- NOTE | 2016-10-17 17:17 | P.PN ---
Progress Note - Text Interval history: . He reports he continues to feel depressed, he continues to have suicidal thoughts."I THOUGHT ABOUT SUICIDE TWICE TODAY ,YESTERDAY WAS ALL DAY LONG" He reports that the mornings started off better but after breakfast he starts having thoughts of his loss and that things will not get better. . He has nobody for support so he states he's received no phone calls or visits. Mental status exam: The patient is alert he is dressed in his own clothing hygiene grooming fair. He endorses a depressed mood and ongoing suicidal thoughts. He endorses no thoughts of harming others she is reporting no auditory or visual hallucinations. There is no evidence of hypomanic or manic symptoms no evidence of psychosis. He demonstrates no verbal or physical aggressiveness. Thought process is linear he demonstrates no tangential thinking, loose associations or flight of ideas. Insight and judgment limited. He is oriented to person place and date. Plan: The patient will continue on his current psychotropic medications. We will continue to monitor him for safety and encourage his participation in the milieu.
[2016-10-17] MEDS: traZODone HCL 50 MG TAB PO SCH (20:48)
[2016-10-18] MEDS: hydrOXYzine PAMOATE 25 MG CAP PO PRN (10:52)
[2016-10-18] MEDS: cloNIDine HCL 0.1 MG TAB PO SCH ×2 (10:52→21:07)
[2016-10-18] MEDS: CITALOPRAM HYDROBROMIDE 20 MG TAB PO SCH (10:52)
[2016-10-18] MEDS: GABAPENTIN 300 MG CAP PO SCH ×3 (10:52→21:07)
[2016-10-18] MEDS: NICOTINE 21MG/24HR PATCH TRANSDERM SCH (10:52)
[2016-10-18] MEDS: ARIPiprazole 5 MG TAB PO SCH ×2 (10:52→17:04)
[2016-10-18] MEDS: IBUPROFEN 800 MG TAB PO PRN ×2 (10:53→21:09)
--- NOTE | 2016-10-18 16:29 | P.PN ---
Progress Note - Text Interval history: . He reports he continues to feel "SAD AND ANXIOUS ",he stated that he felt suicidal "Once after breakfast",reports high anxiety "Lot of new peoples and I am having bad social anxiety" Mental status exam: The patient is alert he is dressed in his own clothing hygiene grooming fair. He endorses a depressed mood and ongoing suicidal thoughts. He endorses no thoughts of harming others she is reporting no auditory or visual hallucinations. There is no evidence of hypomanic or manic symptoms no evidence of psychosis. He demonstrates no verbal or physical aggressiveness. Thought process is linear he demonstrates no tangential thinking, loose associations or flight of ideas. Insight and judgment limited. He is oriented to person place and date. Plan: The patient will continue on his current psychotropic medications. We will continue to monitor him for safety and encourage his participation in the milieu.
[2016-10-18] MEDS: traZODone HCL 50 MG TAB PO SCH (21:07)
[2016-10-18 21:12] VITALS: RESP 16
[2016-10-19 06:35] VITALS: TEMP 98
[2016-10-19] MEDS: CITALOPRAM HYDROBROMIDE 20 MG TAB PO SCH (09:05)
[2016-10-19] MEDS: GABAPENTIN 300 MG CAP PO SCH (09:05)
[2016-10-19] MEDS: NICOTINE 21MG/24HR PATCH TRANSDERM SCH ×2 (09:05→09:06)
[2016-10-19] MEDS: ARIPiprazole 5 MG TAB PO SCH (09:06)
[2016-10-19] MEDS: cloNIDine HCL 0.1 MG TAB PO SCH (09:06)
[2016-10-19 10:04] VITALS: BP 107/63; PULSE 84
--- NOTE | 2016-10-19 21:58 | DS ---
DATE OF ADMISSION: 10/05/2016 DATE OF DISCHARGE: 10/19/2016 CONSULT PHYSICIAN: Margaret. CONSULTING PROVIDER: Dr. Kwok. CONSULT REASON: Medical management. DO YOU WANT CONSULTING PROVIDER NOTIFIED: Yes. DISCHARGE DIAGNOSES: 1. Major depression disorder, recurrent, in partial remission. 2. Alcohol use disorder. 3. History of opium use disorder. 4. Cluster B personality disorder, borderline versus antisocial personality disorder. For brief summary of the admission, the patient was admitted to the mental health unit from the emergency room for depression and suicidal ideation. For complete history and physical examination, please refer to my initial dictation on October 06. HOSPITAL COURSE: the patient was admitted to the Mental Health Unit n voluntary basis. He was started on CIWA for alcohol detox. His blood pressure was running high despite that he had been controlled by Ativan. We did add Catapres. After 4 days I discontinued CIWA as it was 1. I kept him on Catapres. The patient was started on antidepressant to treat his depression. I gradually increased his citalopram to 40 mg daily. As he was complaining of trouble sleeping at night, I did add trazodone 150 mg at bedtime, that was very effective; however, patient was very somatic, preoccupied, had been cleared for throughout the 2 week stay, as he has been grieving the loss of his girlfriend who unexpectedly from opiate pain medication at [facility]. So, I did add Abilify as augmentation 5 milligrams twice a day. Patient was able to tolerate this. A couple of times he did ask me to put him on [place], however, I did discuss with him that the past admission he was addicted to opiate pain medication and according to him, he has been clean for the last couple of months. I did not put him on any opiate pain, but he did agree to start Motrin 800 as needed and Neurontin 600 three times a day. Patient was also complaining about staff or complaining that he had anxiety and he was not getting Ativan as before. He claims that he has been having social phobia and not able to attend groups because of the social phobia. I did add Vistaril as needed for his anxiety. In general the patient was drug seeking throughout his stay, but easy to set boundaries and limits on his behavior. He did participate in most of the group therapy and milieu activity. The 7th grade social studies teacher met with him a couple of times and we did arrange mcc as he has been homeless for the last couple of months. MENTAL STATUS EXAMINATION: Patient is alert, good eye contact. Speech is spontaneous nonpressured. Thought process is linear, at times circumstantial. He denied any homicidal or suicide ideation or intent or plan. He does not have access to firearms. 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 There is no evidence of psychosis or andrea or hypomania. Insight and judgment improving. Cognitive ability has remained stable across the hospitalization. There was no verbal or physical aggression observed. PLAN: The patient will be discharged from the mental health unit today. Patient will follow-up with [facility]. Patient will be given one month supply for Celexa 40 mg daily, trazodone 150 mg at bedtime for sleep, Abilify 5 mg twice a day, Motrin 800 as needed for pain, Neurontin 600 three times a day, Catapres or Clonidine 0.1 twice a day, hydroxyzine or Vistaril 25 mg every 8 hours p.r.n. for anxiety. Patient was instructed to abstain completely from alcohol. I did discuss with him the risk of alcohol on his mental and physical health and he did verbalize understanding. Patient also was instructed to abstain completely from any habit-forming drugs. Patient was instructed to return to the emergency room if any acute safety concerns.
== END 2016-10-19 13:56 | disposition home or self-care (01) | DRG 885 ==
LOC: EC 14:17 → 3MHU 20:31
PROVIDERS: ADMIT Psychiatry & Neurology Psychiatry; ATTEND Psychiatry & Neurology Psychiatry
DX: F33.9 Major depressive disorder, recurrent, unspecified (principal); R45.851 Suicidal ideations; I10 Essential (primary) hypertension; F10.239 Alcohol dependence with withdrawal, unspecified; F17.200 Nicotine dependence, unspecified, uncomplicated; F40.10 Social phobia, unspecified; F41.0 Panic disorder [episodic paroxysmal anxiety]; F43.20 Adjustment disorder, unspecified; F60.3 Borderline personality disorder; F60.89 Other specific personality disorders; G47.00 Insomnia, unspecified; Z59.0 Homelessness
CPT/HCPCS: 36415; 80053; 80306; 80320; 82075; 82550; 82553; 83520; 83690; 84443; 84484; 85025; 85610; 93005; 96361; 96374; 99285

== ENCOUNTER 2016-11-29 14:30 | Inpatient (IN) | payer MEDICAID, OTHER ==
--- NOTE | 2016-11-29 14:54 | ED ---
Psych HPI - General Chief Complaint: Psychiatric Symptoms Stated Complaint: mental health Time Seen by Provider: 11/29/16 14:30 Source: patient Mode of arrival: ambulatory - History of Present Illness Initial Comments: Physical 46-year-old male with a history depression and alcoholism who presents by EMS with complaints of being suicidal. He feels depressed and wanted to cut himself with a knife. He was to be admitted to the [facility]. He does binge drinking alcohol yesterday had none today. He drank last night. Also complain right-sided chest pain that he's had for 2 days he does not recall any trauma but it hurts when he breathes or coughs. He does have a cough no fevers chills or sweats he states no phlegm production. No other complaints of any pain. He denies any street drugs MD Complaint: feels depressed, other - Related Data Home Medications Medication Instructions Recorded Confirmed ARIPiprazole [Abilify] 5 mg PO DAILY@1700 11/29/16 11/30/16 Previous Rx's Medication Instructions Recorded ARIPiprazole [Abilify] 5 mg PO DAILY 30 Days 10/19/16 Citalopram Hydrobromide [CeleXA] 40 mg PO DAILY 30 Days 10/19/16 Gabapentin [Neurontin] 600 mg PO TID 30 Days 10/19/16 Ibuprofen [Motrin] 800 mg PO TID PRN 30 Days 10/19/16 cloNIDine HCL [Catapres] 0.1 mg PO BID 30 Days 10/19/16 hydrOXYzine PAMOATE [Vistaril] 25 mg PO Q8HR PRN 14 Days 10/19/16 traZODone HCL [Desyrel] 150 mg PO HS 30 Days 10/19/16 Allergies Allergy/AdvReac Type Severity Reaction Status Date / Time No Known Allergies Allergy Verified 11/30/16 06:13 Review of Systems ROS Statement: Those systems with pertinent positive or pertinent negative responses have been documented in the HPI. ROS Other: All systems not noted in ROS Statement are negative. Past Medical History Past Medical History: Hypertension Additional Past Medical History / Comment(s): Alcoholic gastritis; Alcohol withdrawal. History of Any Multi-Drug Resistant Organisms: None Reported Past Surgical History: No Surgical Hx Reported Additional Past Anesthesia/Blood Transfusion Reaction / Comment(s): Pt has never had surgery or blood transfusion. Past Psychological History: Anxiety, Depression, Panic Disorder Additional Psychological History / Comment(s): Pt resides with his significant other. He is independent. He uses no assistive devices. He does not drive-he uses the bus to get places. He has a mood disorder. He was seen in [facility] ER with overdose-was seen by psychiatric services once he was sober and deemed not a suicidal risk. Smoking Status: Current every day smoker Past Alcohol Use History: Daily, Heavy Additional Past Alcohol Use History / Comment(s): Pt states he now drinks 3-24 ounce beers a day. He used to add in liquor but no longer does this. He is a smoker and he started smoking at age [age]yrs. He is a ppd smoker. Past Drug Use History: None Reported - Past Family History Sister(s) Family Medical History: No Reported History (Patient has 3 sisters no major medical problems.) Son(s) Family Medical History: No Reported History (One son no major medical problems.) Father Family Medical History: No Reported History Additional Family Medical History / Comment(s): Father is living. Pt does not believe he has any health problem. Mother Family Medical History: No Reported History Additional Family Medical History / Comment(s): Mother is living. Pt does not believe she has any health problems other than she is a smoker. General Exam - General Exam Comments Initial Comments: This is a well-developed well-nourished awake alert anxious appearing male he does have the smell of alcohol conjoiners on his breath Limitations: no limitations General appearance: alert, in no apparent distress Head exam: Present: atraumatic, normocephalic, normal inspection Eye exam: Present: normal appearance, PERRL, EOMI. Absent: scleral icterus, conjunctival injection, periorbital swelling ENT exam: Present: normal exam, mucous membranes moist Neck exam: Present: normal inspection. Absent: tenderness, meningismus, lymphadenopathy Respiratory exam: Present: normal lung sounds bilaterally, chest wall tenderness (Tenderness palpation of the right lateral chest wall question crepitation no deformity no ecchymosis no open wound seen). Absent: respiratory distress, wheezes, rales, rhonchi, stridor Cardiovascular Exam: Present: regular rate, normal rhythm, normal heart sounds. Absent: systolic murmur, diastolic murmur, rubs, gallop, clicks GI/Abdominal exam: Present: soft, normal bowel sounds. Absent: distended, tenderness, guarding, rebound, rigid Extremities exam: Present: normal inspection, full ROM, normal capillary refill. Absent: tenderness, pedal edema, joint swelling, calf tenderness Back exam: Present: normal inspection Neurological exam: Present: alert, oriented X3, CN II-XII intact Psychiatric exam: Present: depressed, anxious, suicidal ideation Skin exam: Present: warm, dry, intact, normal color. Absent: rash Course Vital Signs 11/29/16 11/29/16 11/30/16 14:40 18:00 03:52 Temperature 97.3 F L 98 F Pulse Rate 104 H 89 78 Respiratory 18 20 20 Rate Blood Pressure 154/103 140/82 153/91 O2 Sat by Pulse 94 L 98 98 Oximetry - Reevaluation(s) Reevaluation #1: 11/29/16 20:02 The patient has been resting comfortably throughout the day he is pending sobriety. He will be evaluated by psychiatric service at such time. He will be endorsed to Dr. Galeana who will make the final disposition Medical Decision Making - Lab Data Result diagrams: 11/29/16 14:54 11/29/16 14:54 Lab Results 11/29/16 11/29/16 11/29/16 Range/Units 14:54 14:54 14:54 WBC 12.4 H (3.8-10.6) k/uL RBC 5.43 (4.30-5.90) m/uL Hgb 17.4 D (13.0-17.5) gm/dL Hct 52.5 (39.0-53.0) % MCV 96.7 (80.0-100.0) fL MCH 32.0 (25.0-35.0) pg MCHC 33.1 (31.0-37.0) g/dL RDW 13.0 (11.5-15.5) % Plt Count 80 L (150-450) k/uL Neutrophils % 83 % Lymphocytes % 11 % Monocytes % 4 % Eosinophils % 1 % Basophils % 0 % Neutrophils # 10.3 H (1.3-7.7) k/uL Lymphocytes # 1.4 (1.0-4.8) k/uL Monocytes # 0.5 (0-1.0) k/uL Eosinophils # 0.2 (0-0.7) k/uL Basophils # 0.0 (0-0.2) k/uL Sodium 141 (137-145) mmol/L Potassium 3.9 (3.5-5.1) mmol/L Chloride 102 (98-107) mmol/L Carbon Dioxide 22 (22-30) mmol/L Anion Gap 17 mmol/L BUN 14 (9-20) mg/dL Creatinine 0.68 (0.66-1.25) mg/dL Est GFR (MDRD) Af Amer >60 (>60 ml/min/1.73 sqM) Est GFR (MDRD) Non-Af >60 (>60 ml/min/1.73 sqM) Glucose 102 H (74-99) mg/dL Calcium 8.9 (8.4-10.2) mg/dL Magnesium 1.8 (1.6-2.3) mg/dL Total Bilirubin 1.7 H (0.2-1.3) mg/dL AST 455 H (17-59) U/L ALT 368 H (21-72) U/L Alkaline Phosphatase 104 (38-126) U/L Total Protein 8.1 (6.3-8.2) g/dL Albumin 4.4 (3.5-5.0) g/dL Amylase 65 (30-110) U/L Lipase 290 (23-300) U/L TSH (0.465-4.680) mIU/L Salicylates <1.0 mg/dL Urine Opiates Screen (NotDetected) Ur Oxycodone Screen (NotDetected) Urine Methadone Screen (NotDetected) Ur Propoxyphene Screen (NotDetected) Acetaminophen <10.0 ug/mL Ur Barbiturates Screen (NotDetected) U Tricyclic Antidepress (NotDetected) Ur Phencyclidine Scrn (NotDetected) Ur Amphetamines Screen (NotDetected) U Methamphetamines Scrn (NotDetected) U Benzodiazepines Scrn (NotDetected) Urine Cocaine Screen (NotDetected) U Marijuana (THC) Screen (NotDetected) Serum Alcohol 247 mg/dL Influenza Type A RNA Not Detected (Not Detectd) Influenza Type B (PCR) Not Detected (Not Detectd) 11/29/16 11/29/16 Range/Units 14:54 17:03 WBC (3.8-10.6) k/uL RBC (4.30-5.90) m/uL Hgb (13.0-17.5) gm/dL Hct (39.0-53.0) % MCV (80.0-100.0) fL MCH (25.0-35.0) pg MCHC (31.0-37.0) g/dL RDW (11.5-15.5) % Plt Count (150-450) k/uL Neutrophils % % Lymphocytes % % Monocytes % % Eosinophils % % Basophils % % Neutrophils # (1.3-7.7) k/uL Lymphocytes # (1.0-4.8) k/uL Monocytes # (0-1.0) k/uL Eosinophils # (0-0.7) k/uL Basophils # (0-0.2) k/uL Sodium (137-145) mmol/L Potassium (3.5-5.1) mmol/L Chloride (98-107) mmol/L Carbon Dioxide (22-30) mmol/L Anion Gap mmol/L BUN (9-20) mg/dL Creatinine (0.66-1.25) mg/dL Est GFR (MDRD) Af Amer (>60 ml/min/1.73 sqM) Est GFR (MDRD) Non-Af (>60 ml/min/1.73 sqM) Glucose (74-99) mg/dL Calcium (8.4-10.2) mg/dL Magnesium (1.6-2.3) mg/dL Total Bilirubin (0.2-1.3) mg/dL AST (17-59) U/L ALT (21-72) U/L Alkaline Phosphatase (38-126) U/L Total Protein (6.3-8.2) g/dL Albumin (3.5-5.0) g/dL Amylase (30-110) U/L Lipase (23-300) U/L TSH 1.640 (0.465-4.680) mIU/L Salicylates mg/dL Urine Opiates Screen Not Detected (NotDetected) Ur Oxycodone Screen Not Detected (NotDetected) Urine Methadone Screen Not Detected (NotDetected) Ur Propoxyphene Screen Not Detected (NotDetected) Acetaminophen ug/mL Ur Barbiturates Screen Not Detected (NotDetected) U Tricyclic Antidepress Not Detected (NotDetected) Ur Phencyclidine Scrn Not Detected (NotDetected) Ur Amphetamines Screen Not Detected (NotDetected) U Methamphetamines Scrn Not Detected (NotDetected) U Benzodiazepines Scrn Not Detected (NotDetected) Urine Cocaine Screen Not Detected (NotDetected) U Marijuana (THC) Screen Detected H (NotDetected) Serum Alcohol mg/dL Influenza Type A RNA (Not Detectd) Influenza Type B (PCR) (Not Detectd) - Radiology Data Radiology results: report reviewed (I did review the imaging and report or is evidence of rib fractures #9 #10 and question of July 13. No pneumothorax.) , image reviewed Disposition Clinical Impression: Depression, Alcohol intoxication, Ribs, multiple fractures Disposition: TRANSFER TO PSYCH HOSP/UNIT Condition: Stable
[2016-11-29 15:14] LABS: Basophils % (A) 0 %; CH 32.4; CHCM 33.7; Eosinophils # (A) 0.2 k/uL (0-0.7); Eosinophils % (A) 1 %; HCT 52.5 % (39.0-53.0); Luc # (Auto) 0.11; Luc % (Auto) 1; Lymphocytes # (A) 1.4 k/uL (1.0-4.8); Lymphocytes % (A) 11 %; MCHC 33.1 g/dL (31.0-37.0); MCV 96.7 fL (80.0-100.0); Mean Platelet Volume 8.6; Monocytes # (A) 0.5 k/uL (0-1.0); Monocytes % (A) 4 %; Neutrophils # (A) 10.3 k/uL (1.3-7.7); Neutrophils % (A) 83 %; RBC 5.43 m/uL (4.30-5.90); WBC 12.4 k/uL (3.8-10.6); WBC (Perox) 12.32
[2016-11-29 15:20] LABS: ALT 368 U/L (21-72); AST 455 U/L (17-59); Acetaminophen <10.0 ug/mL; Alkaline Phosphatase 104 U/L (38-126); Amylase 65 U/L (30-110); Anion Gap 17 mmol/L; Blood Urea Nitrogen 14 mg/dL (9-20); Calcium 8.9 mg/dL (8.4-10.2); Carbon Dioxide 22 mmol/L (22-30); Chloride 102 mmol/L (98-107); Glucose 102 mg/dL (74-99); Magnesium 1.8 mg/dL (1.6-2.3); Non-African American GFR(MDRD) >60 (>60 ml/min/1.73 sqM); Potassium 3.9 mmol/L (3.5-5.1); Salicylate <1.0 mg/dL; Sodium 141 mmol/L (137-145); Total Bilirubin 1.7 mg/dL (0.2-1.3); Total Protein 8.1 g/dL (6.3-8.2)
[2016-11-29 15:31] LABS: Alcohol 247 mg/dL
--- NOTE | 2016-11-29 16:24 | XR ---
EXAMINATION TYPE: XR ribs RT w pa chest xray DATE OF EXAM: 11/29/2016 4:17 PM COMPARISON: NONE HISTORY: Pain TECHNIQUE: Single view of the chest and 5 views of the ribs are submitted. FINDINGS: The lungs are clear. No Evidence for pneumothorax. No evidence for focal contusion. Medi astinal structures are midline. Evaluation of the ribs demonstrates fractures of anterolateral right ribs 9 and 10 and possibly 11. IMPRESSION: 1. Right-sided rib fractures. No evidence for pneumothorax.
[2016-11-29] MEDS ORDERED: LORazepam 2 MG/ML SYRINGE IV PRN ×3 (18:01)
[2016-11-29] MEDS ORDERED: THIAMINE 100 MG/ML 2 ML VIAL IM STA (18:01)
[2016-11-29] MEDS ORDERED: IBUPROFEN 600 MG TAB PO STA (19:19)
[2016-11-29] MEDS ORDERED: LORazepam 1 MG TAB PO STA (19:23)
[2016-11-29 21:32] LABS: HGB 17.4 gm/dL (13.0-17.5)
[2016-11-30] MEDS ORDERED: MAGNESIUM HYDROXIDE 2,400 MG/10 ML CUP PO PRN (03:56)
[2016-11-30] MEDS ORDERED: MAG HYDROX/AL HYDROX/SIMETH 30 ML CUP PO PRN (03:56)
[2016-11-30] MEDS: LORazepam 1 MG TAB PO PRN ×2 (04:56→15:37)
[2016-11-30] MEDS: NICOTINE 21MG/24HR PATCH TRANSDERM SCH (07:14)
[2016-11-30] MEDS: THIAMINE 100 MG TAB PO SCH ×2 (12:33→15:37)
[2016-11-30] MEDS: ACETAMINOPHEN TAB 325 MG TAB PO PRN ×2 (12:59→21:28)
[2016-11-30] MEDS: GABAPENTIN 100 MG CAP PO SCH ×2 (15:37→21:27)
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
[2016-11-30] MEDS ORDERED: cloNIDine HCL 0.2 MG TAB PO PRN (16:38)
--- NOTE | 2016-11-30 16:40 | P.CONS ---
History of Present Illness - Reason for Consult Consult date: 11/30/16 - History of Present Illness This is a 46-year-old male with a previous medical history significant for major depressive disorder who was recently hospitalized but he states he stopped taking his medications and he relapsed and started drinking and has been drinking for the past 2 weeks. He states he drinks a fifth +2-3 beers per day. He has been depressed and suicidal. He is also positive on his drug screen for marijuana. He states he does not remember using marijuana. His last alcohol intake was 2 days ago. He is trying to call [facility] to make arrangements. He was last at [facility] 4 years ago. He also states that he has 3 rib fractures on the right side. He does not know for sure how these happen but a similar from a fall. White count 12, total bilirubin 1.7, AST 455 and ALT 368. Urine drug screen was positive for marijuana. Serum alcohol level was 247. Acetaminophen and salicylate level negative. Influenza testing negative. Review of Systems All systems: negative Constitutional: Denies chills, Denies fever Eyes: denies blurred vision, denies pain Ears, nose, mouth and throat: Denies headache, Denies sore throat Cardiovascular: Denies chest pain, Denies shortness of breath Respiratory: Denies cough Gastrointestinal: Denies abdominal pain, Denies diarrhea, Denies nausea, Denies vomiting Musculoskeletal: Denies myalgias Integumentary: Denies pruritus, Denies rash Neurological: Denies numbness, Denies weakness Psychiatric: Reports depression, Reports hopelessness, Reports suicidal ideation , Denies anxiety Endocrine: Denies fatigue, Denies weight change Past Medical History Past Medical History: Hypertension Additional Past Medical History / Comment(s): Alcoholic gastritis; Alcohol withdrawal. History of Any Multi-Drug Resistant Organisms: None Reported Past Surgical History: No Surgical Hx Reported Additional Past Anesthesia/Blood Transfusion Reaction / Comm: Pt has never had surgery or blood transfusion. Past Psychological History: Anxiety, Depression, Panic Disorder Additional Psychological History / Comment(s): Pt resides with his significant other. He is independent. He uses no assistive devices. He does not drive-he uses the bus to get places. He has a mood disorder. He was seen in [facility] ER with overdose-was seen by psychiatric services once he was sober and deemed not a suicidal risk. Smoking Status: Current every day smoker Past Alcohol Use History: Daily, Heavy Additional Past Alcohol Use History / Comment(s): Yolanda's drinking a fifth of liquor and 2-3 beers per day. He is a smoker and he started smoking at age 21- 22yrs. He is a ppd smoker. Past Drug Use History: None Reported - Past Family History Sister(s) Family Medical History: No Reported History Additional Family Medical History / Comment(s): Patient has 3 sisters with no major medical problems. Son(s) Family Medical History: No Reported History Additional Family Medical History / Comment(s): Patient has one son with no major medical problems. Father Family Medical History: No Reported History Additional Family Medical History / Comment(s): Father is 65 years old with no major medical problems. Mother Family Medical History: No Reported History Additional Family Medical History / Comment(s): Mother is alive at age 60 with no major medical problems. she is a smoker. Medications and Allergies Home Medications Medication Instructions Recorded Confirmed Type ARIPiprazole [Abilify] 5 mg PO DAILY@1700 11/29/16 11/30/16 History Allergies Allergy/AdvReac Type Severity Reaction Status Date / Time No Known Allergies Allergy Verified 11/30/16 06:13 Physical Exam Vitals: Vital Signs Temp Pulse Pulse Resp BP BP Pulse Ox 11/30/16 04:24 99.8 F H 117 H 16 136/95 11/30/16 03:52 98 F 78 20 153/91 98 Gen: This is a 46-year-old male. He is cooperative and appears to be in no acute distress. HEENT: Head is atraumatic, normocephalic. Pupils equal, round. Sclerae is anicteric. NECK: Supple. No JVD. No lymphadenopathy. No thyromegaly. LUNGS: Clear to auscultation. No wheezes or rhonchi. No intercostal retractions. HEART: Regular rate and rhythm. No murmur. ABDOMEN: Soft. Bowel sounds are present. No masses. No tenderness. EXTREMITIES: No pedal edema. No calf tenderness. NEUROLOGICAL: Patient is awake, alert and oriented x3. Cranial nerves 2 through 12 are grossly intact. Results CBC & Chem 7: 11/29/16 14:54 11/29/16 14:54 Assessment and Plan Plan: 1. Depression recurrent with suicidal ideation. Patient was admitted to the mental health unit. Continue current plan of care 2. Chronic tobacco use and dependence. Continue nicotine patch 3. Chronic Etoh use and dependence with elevated liver function tests with possible alcoholic hepatitis. Abstinence from alcohol. 4. THC use. Stable at this time. 5. Elevated blood pressure readings without diagnosis of hypertension. Clonidine added twice daily 0.2 mg for systolic blood pressure greater than 160 or diastolic blood pressure greater than 90. Impression and plan of care have been directed as dictated by the signing physician. Melany Carbajal nurse practitioner acting as scribe for signing physician. Time with Patient: Greater than 30
[2016-11-30 20:11] VITALS: BMI 24.4
[2016-11-30] MEDS: traZODone HCL 50 MG TAB PO SCH (21:27)
[2016-12-01] MEDS: NICOTINE 21MG/24HR PATCH TRANSDERM SCH (08:14)
[2016-12-01] MEDS: GABAPENTIN 100 MG CAP PO SCH ×3 (08:15→20:16)
[2016-12-01] MEDS: CITALOPRAM HYDROBROMIDE 20 MG TAB PO SCH (08:15)
[2016-12-01] MEDS: HYDROcodone/APAP 5-325MG 1 EACH TAB PO PRN (11:59)
[2016-12-01] MEDS: LORazepam 1 MG TAB PO PRN ×2 (11:59→20:17)
[2016-12-01] MEDS: THIAMINE 100 MG TAB PO SCH ×2 (12:24→16:08)
--- NOTE | 2016-12-01 17:48 | P.PN ---
Progress Note - Text SUBJECTIVE: I reviewed the medical record and interviewed Mr. Fierro. He is a 46-year-old male who has a history of an alcohol use disorder and depression. He presented to unit with complaints of depression, suicidal ideation and homelessness after he relapsed to alcohol about 2 weeks prior to admission. He complained of rib pain; "I have 3 broken ribs. They know it and I'm not getting anything other than Tylenol." He does not remember how he broke his ribs. He stated that he has no memory of what occurred for 3 days prior to admission. He described alcohol withdrawal symptoms temporarily relieved with lorazepam. He complained of poor sleep, continued feelings of depression and thoughts of suicide. He denied current intent or plan. He called the Access Line yesterday regarding admission to to [facility] for alcohol rehabilitation. OBJECTIVE: He presented as a disheveled and malodorous 46-year-old male. His clothes were soiled and tattered. Her hands and fingers were soiled. He maintained eye contact and attended the interview. He had a mild tremor of his hands. He had no prominent physical abnormalities. He had a depressed facial expression. He was alert and oriented to person, place and time. He has slight psychomotor retardation. His gait was slow but steady. His speech was spontaneous with decreased rate, rhythm and volume. He had no articulation difficulties. His affect was dysphoric. He describes suicidal ideation or wishes. He denied homicidal ideation. He expressed feelings of hopelessness, helplessness and worthlessness. He did not express phobias, ideas reference or paranoid ideation. His thinking was concrete but his associations were coherent and logical. He denied hallucinations and did not appear to be responding to internal stimuli. His CIWA scores range from 1 to 21 over the last 24 hours. He received a total of 2 mg for treatment of alcohol withdrawal symptoms. Casts checks S Ray from 11/29/2016 demonstrated fractures of anterolateral right ribs 9, 10 and possibly 11. Medicine consult appreciated ASSESSMENT: He is having moderate to severe alcohol withdrawal symptoms, pain from multiple rib fractures, continued feelings depression and suicidal thoughts. In addition, he is homeless and has no family support. PLAN: Continue inpatient hospitalization due to depression, alcohol withdrawal symptoms and suicidal ideation. Manage alcohol withdrawal symptoms with a CIWA and lorazepam, continue Celexa 40 mg daily and trazodone 50 mg at bedtime. Narco 5-325 every 6 hours when necessary for pain. Catapres 0.2 mg by mouth twice a day for elevated pressure. Neurontin 100 mg by mouth 3 times a day for anxiety and alcohol withdrawal. Suicide precautions with 15 minute checks. Encourage participation in therapeutic groups and activities. Evaluate clinical status and response to treatment daily basis..
[2016-12-01] MEDS: traZODone HCL 50 MG TAB PO SCH (20:16)
--- NOTE | 2016-12-02 08:14 | P.PN ---
Progress Note - Text SUBJECTIVE: I reviewed the medical record and interviewed Mr. Fierro. He complained of feeling "sore and tired." He described moderate relief of rib pain with Narco. His current alcohol withdrawal symptoms are "mild ... But it goes up and down." He denied current thoughts of or suicide. He remains interested in entering rehab. OBJECTIVE: He presented as a casually groomed 46-year-old male. His clothes were clean and neat. He maintained eye contact and attended the interview. He had a mild tremor of his hands. He had no prominent physical abnormalities. He had a depressed facial expression. He was alert and oriented to person, place and time. He has slight psychomotor retardation. His gait was slow but steady. His speech was spontaneous with decreased rate, rhythm and volume. He had no articulation difficulties. His affect was dysphoric. He denied current suicidal ideation or wishes. He denied homicidal ideation. He expressed feelings of hopelessness, helplessness and worthlessness. He did not express phobias, ideas reference or paranoid ideation. His thinking was concrete but his associations were coherent and logical. He denied hallucinations and did not appear to be responding to internal stimuli. His CIWA scores range from 1 to 12 over the last 24 hours. He received a total of 2 mg for treatment of alcohol withdrawal symptoms. Systolic blood pressure ranged from 131-125 and diastolic from 79-93. ASSESSMENT: He is having mild to moderate alcohol withdrawal symptoms, pain from multiple rib fractures, continued feelings depression without current suicidal thoughts. In addition, he is homeless and has no family support. PLAN: Continue inpatient hospitalization due to depression, alcohol withdrawal symptoms and suicidal ideation. Manage alcohol withdrawal symptoms with a CIWA and lorazepam, continue Celexa 40 mg daily and trazodone 50 mg at bedtime. Narco 5-325 every 6 hours when necessary for pain. Catapres 0.2 mg by mouth twice a day for elevated pressure. Neurontin 100 mg by mouth 3 times a day for anxiety and alcohol withdrawal. Suicide precautions with 15 minute checks. Encourage participation in therapeutic groups and activities. Evaluate clinical status and response to treatment daily basis..
[2016-12-02] MEDS: GABAPENTIN 100 MG CAP PO SCH ×3 (08:24→21:34)
[2016-12-02] MEDS: HYDROcodone/APAP 5-325MG 1 EACH TAB PO PRN ×3 (08:24→21:36)
[2016-12-02] MEDS: NICOTINE 21MG/24HR PATCH TRANSDERM SCH (08:24)
[2016-12-02] MEDS: CITALOPRAM HYDROBROMIDE 20 MG TAB PO SCH (08:24)
[2016-12-02] MEDS: THIAMINE 100 MG TAB PO SCH ×2 (13:12→16:26)
[2016-12-02] MEDS: LORazepam 1 MG TAB PO PRN (13:13)
[2016-12-02] MEDS: traZODone HCL 50 MG TAB PO SCH (21:34)
[2016-12-03] MEDS: HYDROcodone/APAP 5-325MG 1 EACH TAB PO PRN (07:04)
[2016-12-03] MEDS: CITALOPRAM HYDROBROMIDE 20 MG TAB PO SCH (09:51)
[2016-12-03] MEDS: NICOTINE 21MG/24HR PATCH TRANSDERM SCH (09:51)
[2016-12-03] MEDS: GABAPENTIN 100 MG CAP PO SCH (09:52)
[2016-12-03] MEDS: LORazepam 1 MG TAB PO PRN (09:52)
[2016-12-03] MEDS: THIAMINE 100 MG TAB PO SCH ×2 (12:29→16:11)
--- NOTE | 2016-12-03 15:49 | P.PN ---
Progress Note - Text INTERVAL HISTORY:: Patient came to my office asking to talk to me about "HIS ANXIETY" He complained of feeling depressed and anxious ,still having suicidal ideation and wish His current alcohol withdrawal symptoms are mild to moderate. He remains interested to go to inpatient chemical rehab.,he has lot of somatic complains and asking to have "NORCO"more often ,discussed his cross addiction and asking him to abstain from any habit forming drug.Patient reports congested cough and ribs pain HIS CIWA: 10 NURSING STAFF:patient slept 6 hours ,participating in groups MENTAL STATUS:: He presented as casually dressed He maintained eye contact and attended the interview. He had a mild tremor of his hands. He had no prominent physical abnormalities. He had a depressed facial expression. He was alert and oriented to person, place and time. He has slight psychomotor retardation. His gait was slow but steady. His speech was spontaneous with decreased rate, rhythm and volume. He endorses suicidal ideation . He denied homicidal ideation. He expressed feelings of hopelessness, helplessness and worthlessness. He did not , ideas reference or paranoid ideation. His thinking was concrete but his associations were coherent and logical. He denied hallucinations and did not appear to be responding to internal stimuli. PLAN: Discontinue NORCO ,increase Neurontin ,continue Celexa and Trazodone , continue CIWA , patient seems drug seeking for Ativan and opium ,start Motrin PRN, ,Order Chest x ray to rule out any infiltrate Encourage participation in therapeutic groups and activities. Evaluate clinical status and response to treatment daily basis..
[2016-12-03] MEDS: GABAPENTIN 300 MG CAP PO SCH ×2 (16:11→21:07)
[2016-12-03] MEDS: IBUPROFEN 800 MG TAB PO PRN (16:11)
--- NOTE | 2016-12-03 20:22 | XR ---
EXAMINATION TYPE: XR chest 2V DATE OF EXAM: 12/03/2016 8:17 PM COMPARISON: 01/27/2016 HISTORY: Pneumonia and cough TECHNIQUE: Frontal and lateral views of the chest are obtained. FINDINGS: Heart and mediastinum are normal. Lungs are clear. Diaphragm is normal. Bony thorax is int act. IMPRESSION: Normal chest. No change.
[2016-12-03] MEDS: traZODone HCL 50 MG TAB PO SCH (21:07)
[2016-12-04] MEDS: IBUPROFEN 800 MG TAB PO PRN ×2 (03:24→20:34)
[2016-12-04] MEDS: NICOTINE 21MG/24HR PATCH TRANSDERM SCH (09:19)
[2016-12-04] MEDS: GABAPENTIN 300 MG CAP PO SCH ×3 (09:20→20:33)
[2016-12-04] MEDS: CITALOPRAM HYDROBROMIDE 20 MG TAB PO SCH (09:20)
[2016-12-04] MEDS: THIAMINE 100 MG TAB PO SCH ×2 (13:44→17:14)
[2016-12-04] MEDS ORDERED: LORazepam 1 MG TAB PO PRN (15:26)
--- NOTE | 2016-12-04 15:26 | P.PN ---
Progress Note - Text INTERVAL HISTORY:: Saw patient and discussed his case in treatment team , patient will start inpatient chemical dependency tomorrow " He complained of feeling anxious and he is aware that he will not have any benzodiazepine in Rehab ,denies any psychotic features ,denies any sleeping problems ,denies any hopeless or helpless feeling NURSING STAFF:patient slept 6 hours ,participating in groups CHEST X RAY:negative MENTAL STATUS:: He presented as casually dressed He maintained eye contact and attended the interview. He had no prominent physical abnormalities. He was alert and oriented to person, place and time. He has slight psychomotor retardation. His gait was slow but steady. His speech was spontaneous with decreased rate, rhythm and volume. He denies suicidal ideation . He denied homicidal ideation. He expressed anxiety feeling He denies, ideas reference or paranoid ideation. His thinking was concrete but his associations were coherent and logical. He denied hallucinations and did not appear to be responding to internal stimuli. PLAN: Continue current medication ,discharge tomorrow to inpatient [facility] and avoid re-hospitalization
[2016-12-04] MEDS: traZODone HCL 50 MG TAB PO SCH (20:33)
[2016-12-05 05:24] VITALS: BP 102/69; PULSE 91; RESP 18; TEMP 97.6
[2016-12-05] MEDS ORDERED: LIDOCAINE 5% PATCH TOPICAL SCH (09:00)
[2016-12-05] MEDS: NICOTINE 21MG/24HR PATCH TRANSDERM SCH (10:04)
[2016-12-05] MEDS: CITALOPRAM HYDROBROMIDE 20 MG TAB PO SCH (10:05)
[2016-12-05] MEDS: GABAPENTIN 300 MG CAP PO SCH (10:05)
--- NOTE | 2016-12-06 09:23 | DS ---
DATE OF ADMISSION: 11/30/2016 DATE OF DISCHARGE: 12/05/2016 CONSULT PHYSICIAN: Margaret. CONSULTING PROVIDER: Melany Carbajal. CONSULT REASON: For medical management. Do you want consulting provider notified? Yes. DISCHARGE DIAGNOSES: 1. Alcohol use disorder, severe. 2. Depressive disorder, not otherwise specified. 3. Anxiety disorder, not otherwise specified. BRIEF SUMMARY OF THE ADMISSION NOTE: Patient presented to the emergency room with alcohol intoxication and complaining of being suicide. He was having planned to cut his wrist but he was able to come to the mental health unit. He did admit that he has been drinking for the last 2 weeks and the last use of alcohol was just 24 hours per to his admission. Even he was complaining of right-sided chest pain that he had 2 days ago thinking that he broke his ribs, but he does not recall any trauma, he said "I had a couple of blackouts." For complete history and physical examination, please refer to my history and physical exam. HOSPITAL COURSE: The patient was admitted to the mental health unit on voluntary basis. Once he was admitted, we did start him on CIWA for alcohol detox. Initially, his CIWA was running between 10 to 12 and he was getting Ativan for this but for at least 72 hours prior to his discharge, his CIWA was between 0 to 1. Patient was complaining of having pain and he was looking for Elberta; however, he was on Elberta by the psychiatric on the weekend and I did continue the Elberta. I did put him back on his psychotropic medications, that it was Celexa 40 mg daily, trazodone 150 mg at bedtime and Catapres for blood pressure 0.2 twice a day. For his pain, I did give him Motrin 800 three times a day as needed and Neurontin 300 three times a day and he did agree to contact [facility] and he was picked up by [facility] to go to [facility] on December 05 at 11 a.m. Patient did participate in group therapy. He denied any suicidal or homicidal ideation. At times he was just seeking for narcotic, but was easy to redirect. MENTAL STATUS EXAMINATION: At the time of the discharge, patient is a casually groomed, male who looks his stated age. He maintained good eye contact. There is no prominent physical abnormality. His affect is constricted. His gait was slow but steady. His speech is spontaneous but decreased in rate, rhythm and volume. He denied any current suicidal ideation or wish. He denied any homicidal ideation. He denied any feeling of hopeless or helpless or worthless. He did not express any phobia. He denied any psychotic feature. He denied any hallucination or idea of reference. He did not appear to be responding to any internal stimuli. His insight to his addiction is improving. Cognitive ability has remained stable through the hospitalization. PLAN: 1. Patient will be discharged from the mental health unit today to start inpatient chemical dependency program at [facility]. 2. Patient was given 4 weeks' supply for Celexa 40 mg daily for depression, trazodone 150 mg at bedtime for sleep, clonidine or Catapres 0.2 twice a day as needed for high blood pressure for hypertension, if systolic above 160 or diastolic more than 90. For his pain he was given Motrin 800 three times a day as needed and Neurontin 300 three times a day. There is no eminent safety risk and patient is appropriate for transfer to inpatient chemical dependency program. Patient's condition at the time of the discharge, stable.
== END 2016-12-05 10:11 | disposition home or self-care (01) | DRG 885 ==
LOC: EC 14:30 → 3MHU 11-30 03:44
PROVIDERS: ADMIT Psychiatry & Neurology Psychiatry; ATTEND Psychiatry & Neurology Psychiatry
DX: F33.2 Major depressive disorder, recurrent severe without psychotic features (principal); R45.851 Suicidal ideations; S22.41XA Multiple fractures of ribs, right side, initial encounter for closed fracture; F10.239 Alcohol dependence with withdrawal, unspecified; Z91.19 Patient's noncompliance with other medical treatment and regimen; I10 Essential (primary) hypertension; F17.200 Nicotine dependence, unspecified, uncomplicated; F41.0 Panic disorder [episodic paroxysmal anxiety]; F51.5 Nightmare disorder; W19.XXXA Unspecified fall, initial encounter; Y90.8 Blood alcohol level of 240 mg/100 ml or more; Z59.0 Homelessness; Z65.3 Problems related to other legal circumstances; Z79.899 Other long term (current) drug therapy; Z63.4 Disappearance and death of family member; Z56.0 Unemployment, unspecified; R26.89 Other abnormalities of gait and mobility; S00.12XA Contusion of left eyelid and periocular area, initial encounter
CPT/HCPCS: 36415; 71020; 80053; 80306; 80320; 82075; 82150; 83520; 83690; 83735; 84443; 85025; 87502; 96372; 99285

== ENCOUNTER 2017-01-08 06:59 | Inpatient (IN) | payer OTHER ==
[2017-01-08] MEDS ORDERED: SODIUM CHLORIDE 0.9% 1,000 ML IV STA ×3 (07:19→10:55)
--- NOTE | 2017-01-08 07:24 | ED ---
General Adult HPI - General Chief complaint: Alcohol Stated complaint: Alcohol Time Seen by Provider: 01/08/17 07:13 Source: EMS, RN notes reviewed Mode of arrival: EMS Limitations: altered mental status - History of Present Illness Initial comments: Patient is a 46-year-old male to the emergency department by EMS. Patient is a very poor historian and offers no significant information. [place] with empty bottles of whiskey. - Related Data Previous Rx's Medication Instructions Recorded Citalopram Hydrobromide [CeleXA] 40 mg PO DAILY 30 Days 12/04/16 Gabapentin [Neurontin] 300 mg PO TID 30 Days 12/04/16 Ibuprofen [Motrin] 800 mg PO TID PRN 30 Days 12/04/16 cloNIDine HCL [Catapres] 0.2 mg PO BID PRN 30 Days 12/04/16 traZODone HCL [Desyrel] 150 mg PO HS 30 Days 12/04/16 Lidocaine 5% Patch [Lidoderm 5% 1 patch TOPICAL DAILY 10 Days 12/05/16 Patch] Allergies Allergy/AdvReac Type Severity Reaction Status Date / Time No Known Allergies Allergy Verified 01/08/17 08:01 Review of Systems ROS Statement: Those systems with pertinent positive or pertinent negative responses have been documented in the HPI. ROS Other: All systems not noted in ROS Statement are negative. Limitations: ROS unobtainable due to patients medical condition Past Medical History Past Medical History: Hypertension Additional Past Medical History / Comment(s): Alcoholic gastritis; Alcohol withdrawal. History of Any Multi-Drug Resistant Organisms: None Reported Past Surgical History: No Surgical Hx Reported Additional Past Anesthesia/Blood Transfusion Reaction / Comment(s): Pt has never had surgery or blood transfusion. Past Psychological History: Anxiety, Depression, Panic Disorder Additional Psychological History / Comment(s): Pt resides with his significant other. He is independent. He uses no assistive devices. He does not drive-he uses the bus to get places. He has a mood disorder. He was seen in [facility] ER with overdose-was seen by psychiatric services once he was sober and deemed not a suicidal risk. Smoking Status: Current every day smoker Past Alcohol Use History: Daily, Heavy Additional Past Alcohol Use History / Comment(s): Pt states he now drinks 3-24 ounce beers a day. He used to add in liquor but no longer does this. He is a smoker and he started smoking at age [age]yrs. He is a ppd smoker. Past Drug Use History: None Reported - Past Family History Sister(s) Family Medical History: No Reported History (Patient has 3 sisters no major medical problems.) Additional Family Medical History / Comment(s): Patient has 3 sisters with no major medical problems. Son(s) Family Medical History: No Reported History (One son no major medical problems.) Additional Family Medical History / Comment(s): Patient has one son with no major medical problems. Father Family Medical History: No Reported History Additional Family Medical History / Comment(s): Father is living. Pt does not believe he has any health problem. Mother Family Medical History: No Reported History Additional Family Medical History / Comment(s): Mother is living. Pt does not believe she has any health problems other than she is a smoker. General Exam Limitations: altered mental status General appearance: alert, in no apparent distress, appears intoxicated Head exam: Present: atraumatic Eye exam: Present: normal appearance, PERRL, other (Limited ability to follow fingers to determine nystagmus) ENT exam: Present: mucous membranes dry Neck exam: Present: normal inspection. Absent: tenderness, meningismus Respiratory exam: Present: normal lung sounds bilaterally Cardiovascular Exam: Present: regular rate, normal rhythm GI/Abdominal exam: Present: soft. Absent: tenderness Extremities exam: Present: normal inspection, full ROM. Absent: tenderness Neurological exam: Present: alert, altered, other (Limited exam, difficulty following commands.) Expanded Patient oriented to: Present: person. Absent: place, time Motor strength exam: RUE: 5, LUE: 5, RLE: 5, LLE: 5 Eye Response: (4) open spontaneously Motor Response: (6) obeys commands Verbal Response: (3) inappropriate words Psychiatric exam: Present: normal affect, normal mood Skin exam: Present: normal color Course Vital Signs 01/08/17 01/08/17 01/08/17 07:00 09:09 10:03 Temperature 88.4 F L 92.9 F L Pulse Rate 91 87 103 H Respiratory 18 18 18 Rate Blood Pressure 135/80 148/104 136/78 O2 Sat by Pulse 100 96 96 Oximetry - Reevaluation(s) Reevaluation #1: 01/08/17 10:51 Patient has a pitcher regarding sepsis. There may be a urinary tract infection. Patient is hypothermic and does have elevated white blood cell count. Lactic acid will be drawn. Case was discussed with Dr. Lambert EKG Findings - EKG Comments: EKG Findings:: Sinus rhythm at 90. MS 150. QRS 80. QT 338. QTC 413. Left axis. Normal QRS. No acute ST change. Medical Decision Making - Medical Decision Making Patient was reevaluated and resting comfortably in bed. Patient updated on results and plan. Case discussed with Dr. Yin, who will admit for hospital call. - Lab Data Result diagrams: 01/08/17 07:15 01/08/17 08:53 Lab Results 01/08/17 01/08/17 01/08/17 Range/Units 07:15 07:15 08:53 WBC 19.3 H (3.8-10.6) k/uL RBC 5.75 (4.30-5.90) m/uL Hgb 18.9 H (13.0-17.5) gm/dL Hct 57.8 H (39.0-53.0) % MCV 100.5 H (80.0-100.0) fL MCH 32.9 (25.0-35.0) pg MCHC 32.7 (31.0-37.0) g/dL RDW 13.5 (11.5-15.5) % Plt Count 279 D (150-450) k/uL Neutrophils % 82 % Lymphocytes % 10 % Monocytes % 7 % Eosinophils % 0 % Basophils % 1 % Neutrophils # 15.8 H (1.3-7.7) k/uL Lymphocytes # 1.9 (1.0-4.8) k/uL Monocytes # 1.3 H (0-1.0) k/uL Eosinophils # 0.0 (0-0.7) k/uL Basophils # 0.1 (0-0.2) k/uL PT 9.9 (9.0-12.0) sec INR 1.0 (<1.1) Sodium 152 H (137-145) mmol/L Potassium 4.4 (3.5-5.1) mmol/L Chloride 111 H (98-107) mmol/L Carbon Dioxide 15 L (22-30) mmol/L Anion Gap 26 mmol/L BUN 33 H (9-20) mg/dL Creatinine 1.20 (0.66-1.25) mg/dL Est GFR (MDRD) Af Amer >60 (>60 ml/min/1.73 sqM) Est GFR (MDRD) Non-Af >60 (>60 ml/min/1.73 sqM) Glucose 103 H (74-99) mg/dL Calcium 9.1 (8.4-10.2) mg/dL Phosphorus 5.8 H (2.5-4.5) mg/dL Magnesium 2.0 (1.6-2.3) mg/dL Total Bilirubin 0.5 (0.2-1.3) mg/dL AST 84 H (17-59) U/L ALT 56 (21-72) U/L Alkaline Phosphatase 113 (38-126) U/L Total Protein 7.5 (6.3-8.2) g/dL Albumin 4.6 (3.5-5.0) g/dL Urine Color Urine Appearance (Clear) Urine pH (5.0-8.0) Ur Specific Valera (1.001-1.035) Urine Protein (Negative) Urine Glucose (UA) (Negative) Urine Blood (Negative) Urine Nitrite (Negative) Urine Bilirubin (Negative) Urine Urobilinogen (<2.0) mg/dL Ur Leukocyte Esterase (Negative) Urine RBC (0-5) /hpf Urine WBC (0-5) /hpf Urine Bacteria (None) /hpf Hyaline Casts (0-2) /lpf Urine Mucus (None) /hpf Urine Opiates Screen (NotDetected) Ur Oxycodone Screen (NotDetected) Urine Methadone Screen (NotDetected) Ur Propoxyphene Screen (NotDetected) Ur Barbiturates Screen (NotDetected) U Tricyclic Antidepress (NotDetected) Ur Phencyclidine Scrn (NotDetected) Ur Amphetamines Screen (NotDetected) U Methamphetamines Scrn (NotDetected) U Benzodiazepines Scrn (NotDetected) Urine Cocaine Screen (NotDetected) U Marijuana (THC) Screen (NotDetected) Serum Alcohol 291 mg/dL 01/08/17 Range/Units 10:00 WBC (3.8-10.6) k/uL RBC (4.30-5.90) m/uL Hgb (13.0-17.5) gm/dL Hct (39.0-53.0) % MCV (80.0-100.0) fL MCH (25.0-35.0) pg MCHC (31.0-37.0) g/dL RDW (11.5-15.5) % Plt Count (150-450) k/uL Neutrophils % % Lymphocytes % % Monocytes % % Eosinophils % % Basophils % % Neutrophils # (1.3-7.7) k/uL Lymphocytes # (1.0-4.8) k/uL Monocytes # (0-1.0) k/uL Eosinophils # (0-0.7) k/uL Basophils # (0-0.2) k/uL PT (9.0-12.0) sec INR (<1.1) Sodium (137-145) mmol/L Potassium (3.5-5.1) mmol/L Chloride (98-107) mmol/L Carbon Dioxide (22-30) mmol/L Anion Gap mmol/L BUN (9-20) mg/dL Creatinine (0.66-1.25) mg/dL Est GFR (MDRD) Af Amer (>60 ml/min/1.73 sqM) Est GFR (MDRD) Non-Af (>60 ml/min/1.73 sqM) Glucose (74-99) mg/dL Calcium (8.4-10.2) mg/dL Phosphorus (2.5-4.5) mg/dL Magnesium (1.6-2.3) mg/dL Total Bilirubin (0.2-1.3) mg/dL AST (17-59) U/L ALT (21-72) U/L Alkaline Phosphatase (38-126) U/L Total Protein (6.3-8.2) g/dL Albumin (3.5-5.0) g/dL Urine Color Yellow Urine Appearance Cloudy (Clear) Urine pH 5.0 (5.0-8.0) Ur Specific Valera 1.016 (1.001-1.035) Urine Protein 1+ H (Negative) Urine Glucose (UA) Negative (Negative) Urine Blood Moderate H (Negative) Urine Nitrite Negative (Negative) Urine Bilirubin Negative (Negative) Urine Urobilinogen <2.0 (<2.0) mg/dL Ur Leukocyte Esterase Negative (Negative) Urine RBC 6 H (0-5) /hpf Urine WBC 15 H (0-5) /hpf Urine Bacteria Rare H (None) /hpf Hyaline Casts 30 H (0-2) /lpf Urine Mucus Rare H (None) /hpf Urine Opiates Screen Not Detected (NotDetected) Ur Oxycodone Screen Not Detected (NotDetected) Urine Methadone Screen Not Detected (NotDetected) Ur Propoxyphene Screen Not Detected (NotDetected) Ur Barbiturates Screen Not Detected (NotDetected) U Tricyclic Antidepress Not Detected (NotDetected) Ur Phencyclidine Scrn Not Detected (NotDetected) Ur Amphetamines Screen Not Detected (NotDetected) U Methamphetamines Scrn Not Detected (NotDetected) U Benzodiazepines Scrn Not Detected (NotDetected) Urine Cocaine Screen Not Detected (NotDetected) U Marijuana (THC) Screen Not Detected (NotDetected) Serum Alcohol mg/dL - Radiology Data Radiology results: report reviewed (Computed tomography scan of the brain shows no acute intercranial process.), image reviewed (Chest x-ray shows no acute process) Critical Care Time Critical Care Time: Yes Total Critical Care Time: 33 Disposition Clinical Impression: Alcohol intoxication, Hypothermia, Urinary tract infection Disposition: ADMITTED IP TO THIS [facility] Condition: Serious Time of Disposition: 10:06
[2017-01-08 07:51] LABS: Basophils # (A) 0.1 k/uL (0-0.2); Basophils % (A) 1 %; CH 32.5; CHCM 32.5; Eosinophils % (A) 0 %; HCT 57.8 % (39.0-53.0); HDW 2.69; HGB 18.9 gm/dL (13.0-17.5); Luc # (Auto) 0.16; Luc % (Auto) 1; Lymphocytes # (A) 1.9 k/uL (1.0-4.8); Lymphocytes % (A) 10 %; MCH 32.9 pg (25.0-35.0); MCHC 32.7 g/dL (31.0-37.0); MCV 100.5 fL (80.0-100.0); Mean Platelet Volume 7.2; Monocytes # (A) 1.3 k/uL (0-1.0); Monocytes % (A) 7 %; Neutrophils # (A) 15.8 k/uL (1.3-7.7); Neutrophils % (A) 82 %; RBC 5.75 m/uL (4.30-5.90); RDW 13.5 % (11.5-15.5); WBC 19.3 k/uL (3.8-10.6)
[2017-01-08 08:02] LABS: Prothrombin Time 9.9 sec (9.0-12.0)
--- NOTE | 2017-01-08 08:59 | CT ---
EXAMINATION TYPE: CT brain wo con DATE OF EXAM: 01/08/2017 8:52 AM COMPARISON: NONE HISTORY: Altered mental status CT DLP: [address] of the brain was performed. The ventricles, basal cisterns and sulci overlying the cerebral convexities demonstrate a normal appe arance. There is no evidence for intracranial hemorrhage or sulcal effacement. No mass effects are seen. Osseous calvarium is intact. If symptoms persist consider MRI as clinically warranted. IMPRESSION: 1. No acute intracranial process is seen at this time.
--- NOTE | 2017-01-08 09:04 | XR ---
EXAMINATION TYPE: XR chest 1V portable DATE OF EXAM: 01/08/2017 8:49 AM COMPARISON: Prior chest x-ray third of December 2016 HISTORY: Altered mental status TECHNIQUE: Single frontal view of the chest is obtained. FINDINGS: There is no focal air space opacity, pleural effusion, or pneumothorax seen. The cardiac silhouette size is within normal limits. There are overlying cardiac leads. The osseous structures a re intact. IMPRESSION: No acute process.
[2017-01-08 09:20] LABS: ALT 56 U/L (21-72); AST 84 U/L (17-59); Alkaline Phosphatase 113 U/L (38-126); Anion Gap 26 mmol/L; Blood Urea Nitrogen 33 mg/dL (9-20); Calcium 9.1 mg/dL (8.4-10.2); Carbon Dioxide 15 mmol/L (22-30); Chloride 111 mmol/L (98-107); Glucose 103 mg/dL (74-99); Non-African American GFR(MDRD) >60 (>60 ml/min/1.73 sqM); Phosphorous 5.8 mg/dL (2.5-4.5); Potassium 4.4 mmol/L (3.5-5.1); Sodium 152 mmol/L (137-145); Total Bilirubin 0.5 mg/dL (0.2-1.3); Total Protein 7.5 g/dL (6.3-8.2)
[2017-01-08 09:38] LABS: Alcohol 291 mg/dL
[2017-01-08] MEDS ORDERED: NALOXONE 0.4 MG/ML 1 ML VIAL IV PRN (10:08)
[2017-01-08] MEDS ORDERED: THIAMINE 100 MG/ML 2 ML VIAL IM STA (10:10)
[2017-01-08] MEDS ORDERED: LORazepam 2 MG/ML SYRINGE IV PRN ×3 (10:10)
[2017-01-08] MEDS ORDERED: SODIUM CHLORIDE 0.9% 1,000 ML IV SCH (10:15)
[2017-01-08 10:37] LABS: Appearance,Urine Cloudy (Clear); Bacteria,Urine Rare /hpf; Bilirubin,Urine Negative (Negative); Glucose,Urine (UA) Negative (Negative); Ketones,Urine 2+ (Negative); Leukocyte Esterase,Urine Negative (Negative); Mucus,Urine Rare /hpf; Nitrite,Urine Negative (Negative); Particle Count 14036; Protein,Urine 1+ (Negative); RBC,Urine 6 /hpf (0-5); Specific Gravity,Urine 1.016 (1.001-1.035); UA Billing (MACRO vs. MICRO) MICRO; Urobilinogen,Urine <2.0 mg/dL (<2.0); WBC,Urine 15 /hpf (0-5)
[2017-01-08] MEDS ORDERED: SODIUM CHLORIDE 0.9% 250 ML IV STA (10:55)
[2017-01-08] MEDS ORDERED: SODIUM CHLORIDE 0.9% 500 ML IV STA (10:55)
--- NOTE | 2017-01-08 13:05 | CONS ---
DATE OF CONSULTATION: A 46-year-old male who was brought in by EMS. He apparently was found intoxicated, hypothermic, under a bridge. He had an empty bottle of whiskey next to him. The patient could not give any more history. He does arouse. Does not really answer questions particularly well. No threat to his airway at this time. His temperature has to come up to 92.9 with warm IV fluids and a bear hugger. Vital signs are otherwise stable with a heart rate of 103, respiratory rate 18, blood pressure 136/78 and room air saturation 96%. I was asked to evaluate the patient for possible admission to the ICU. Apparently, his previous medications included lidocaine patch, trazodone, clonidine, ibuprofen, gabapentin and citalopram. Allergies are apparently denied. Medical history is apparently positive for history of alcoholic gastritis, previous alcohol withdrawal, hypertension. No surgeries reported. He apparently does have a mood disorder. He apparently has been seen before by Psychiatry and was found not to be suicidal. He is a smoker. He is a heavy drinker. Drinks three 24 ounce beers a day. He does not drink liquor anymore. Smokes a pack a day. No other history could be obtained. Review of systems is not reliable. Current vital signs reveal temperature 92.9, heart rate 103, respiratory rate 18, blood pressure 136/78, saturation by pulse ox 96%. Appears in no acute distress. No respiratory distress. HEENT examination is grossly unremarkable. Neck is supple. Cardiovascular examination reveals regular rhythm and rate. Lungs are clear breath sounds equal. Abdomen is soft. Extremities are intact. No sinus clubbing or edema. Skin without rash. Chest x-ray is normal. Labs are reviewed. White count 19.3, hemoglobin 18.9, hematocrit 57.8, platelet count 279,000. PT, INR was normal. Sodium is 162, potassium 4.4, chloride is 111, CO2 of 15. Anion gap is 26, BUN and creatinine were 33 and 1.20. Glucose 103, phosphorus 5.8. AST 84. Urine is showing 1+ protein, 2+ ketones, moderate blood, 6 RBCs, 15 WBCs, rare bacteria. The drug screen was negative except for the serum alcohol level which is 291. These labs were done late last night, looks like right before midnight and none of the labs have been repeated as yet, it appears. ASSESSMENT: 1. Alcohol intoxication with hyperthermia. 2. Hemoconcentration with hypernatremia. 3. Anion gap metabolic acidosis. 4. Prerenal azotemia. 5. Hemoconcentration. 6. History of hypertension. 7. History of mood disorder. 8. History of chronic tobacco abuse. 9. History of chronic alcohol abuse. PLAN: I am going to ask the nurses to repeat a temperature. I am going to recommend that we give the patient more additional fluids. In my opinion, the patient is stable enough to go to 6 selective. Will continue to follow. No additional recommendations are made. Prognosis is guarded.
--- NOTE | 2017-01-08 13:10 | ED ---
Medical Decision Making - Lab Data Result diagrams: 01/08/17 07:15 01/08/17 08:53 Lab Results 01/08/17 01/08/17 01/08/17 Range/Units 07:15 07:15 08:53 WBC 19.3 H (3.8-10.6) k/uL RBC 5.75 (4.30-5.90) m/uL Hgb 18.9 H (13.0-17.5) gm/dL Hct 57.8 H (39.0-53.0) % MCV 100.5 H (80.0-100.0) fL MCH 32.9 (25.0-35.0) pg MCHC 32.7 (31.0-37.0) g/dL RDW 13.5 (11.5-15.5) % Plt Count 279 D (150-450) k/uL Neutrophils % 82 % Lymphocytes % 10 % Monocytes % 7 % Eosinophils % 0 % Basophils % 1 % Neutrophils # 15.8 H (1.3-7.7) k/uL Lymphocytes # 1.9 (1.0-4.8) k/uL Monocytes # 1.3 H (0-1.0) k/uL Eosinophils # 0.0 (0-0.7) k/uL Basophils # 0.1 (0-0.2) k/uL PT 9.9 (9.0-12.0) sec INR 1.0 (<1.1) Sodium 152 H (137-145) mmol/L Potassium 4.4 (3.5-5.1) mmol/L Chloride 111 H (98-107) mmol/L Carbon Dioxide 15 L (22-30) mmol/L Anion Gap 26 mmol/L BUN 33 H (9-20) mg/dL Creatinine 1.20 (0.66-1.25) mg/dL Est GFR (MDRD) Af Amer >60 (>60 ml/min/1.73 sqM) Est GFR (MDRD) Non-Af >60 (>60 ml/min/1.73 sqM) Glucose 103 H (74-99) mg/dL Calcium 9.1 (8.4-10.2) mg/dL Phosphorus 5.8 H (2.5-4.5) mg/dL Magnesium 2.0 (1.6-2.3) mg/dL Total Bilirubin 0.5 (0.2-1.3) mg/dL AST 84 H (17-59) U/L ALT 56 (21-72) U/L Alkaline Phosphatase 113 (38-126) U/L Total Protein 7.5 (6.3-8.2) g/dL Albumin 4.6 (3.5-5.0) g/dL Urine Color Urine Appearance (Clear) Urine pH (5.0-8.0) Ur Specific [place] (1.001-1.035) Urine Protein (Negative) Urine Glucose (UA) (Negative) Urine Ketones (Negative) Urine Blood (Negative) Urine Nitrite (Negative) Urine Bilirubin (Negative) Urine Urobilinogen (<2.0) mg/dL Ur Leukocyte Esterase (Negative) Urine RBC (0-5) /hpf Urine WBC (0-5) /hpf Urine Bacteria (None) /hpf Hyaline Casts (0-2) /lpf Urine Mucus (None) /hpf Urine Opiates Screen (NotDetected) Ur Oxycodone Screen (NotDetected) Urine Methadone Screen (NotDetected) Ur Propoxyphene Screen (NotDetected) Ur Barbiturates Screen (NotDetected) U Tricyclic Antidepress (NotDetected) Ur Phencyclidine Scrn (NotDetected) Ur Amphetamines Screen (NotDetected) U Methamphetamines Scrn (NotDetected) U Benzodiazepines Scrn (NotDetected) Urine Cocaine Screen (NotDetected) U Marijuana (THC) Screen (NotDetected) Serum Alcohol 291 mg/dL 01/08/17 Range/Units 10:00 WBC (3.8-10.6) k/uL RBC (4.30-5.90) m/uL Hgb (13.0-17.5) gm/dL Hct (39.0-53.0) % MCV (80.0-100.0) fL MCH (25.0-35.0) pg MCHC (31.0-37.0) g/dL RDW (11.5-15.5) % Plt Count (150-450) k/uL Neutrophils % % Lymphocytes % % Monocytes % % Eosinophils % % Basophils % % Neutrophils # (1.3-7.7) k/uL Lymphocytes # (1.0-4.8) k/uL Monocytes # (0-1.0) k/uL Eosinophils # (0-0.7) k/uL Basophils # (0-0.2) k/uL PT (9.0-12.0) sec INR (<1.1) Sodium (137-145) mmol/L Potassium (3.5-5.1) mmol/L Chloride (98-107) mmol/L Carbon Dioxide (22-30) mmol/L Anion Gap mmol/L BUN (9-20) mg/dL Creatinine (0.66-1.25) mg/dL Est GFR (MDRD) Af Amer (>60 ml/min/1.73 sqM) Est GFR (MDRD) Non-Af (>60 ml/min/1.73 sqM) Glucose (74-99) mg/dL Calcium (8.4-10.2) mg/dL Phosphorus (2.5-4.5) mg/dL Magnesium (1.6-2.3) mg/dL Total Bilirubin (0.2-1.3) mg/dL AST (17-59) U/L ALT (21-72) U/L Alkaline Phosphatase (38-126) U/L Total Protein (6.3-8.2) g/dL Albumin (3.5-5.0) g/dL Urine Color Yellow Urine Appearance Cloudy (Clear) Urine pH 5.0 (5.0-8.0) Ur Specific [place] 1.016 (1.001-1.035) Urine Protein 1+ H (Negative) Urine Glucose (UA) Negative (Negative) Urine Ketones 2+ H (Negative) Urine Blood Moderate H (Negative) Urine Nitrite Negative (Negative) Urine Bilirubin Negative (Negative) Urine Urobilinogen <2.0 (<2.0) mg/dL Ur Leukocyte Esterase Negative (Negative) Urine RBC 6 H (0-5) /hpf Urine WBC 15 H (0-5) /hpf Urine Bacteria Rare H (None) /hpf Hyaline Casts 30 H (0-2) /lpf Urine Mucus Rare H (None) /hpf Urine Opiates Screen Not Detected (NotDetected) Ur Oxycodone Screen Not Detected (NotDetected) Urine Methadone Screen Not Detected (NotDetected) Ur Propoxyphene Screen Not Detected (NotDetected) Ur Barbiturates Screen Not Detected (NotDetected) U Tricyclic Antidepress Not Detected (NotDetected) Ur Phencyclidine Scrn Not Detected (NotDetected) Ur Amphetamines Screen Not Detected (NotDetected) U Methamphetamines Scrn Not Detected (NotDetected) U Benzodiazepines Scrn Not Detected (NotDetected) Urine Cocaine Screen Not Detected (NotDetected) U Marijuana (THC) Screen Not Detected (NotDetected) Serum Alcohol mg/dL Critical Care Time Critical Care Time: Yes Total Critical Care Time: 40 Disposition Clinical Impression: Alcohol intoxication, Hypothermia, Urinary tract infection, Septic shock Disposition: ADMITTED IP TO THIS HOSP Condition: Serious Procedures - Sepsis Sepsis Focused Exam #1 Time Sepsis Criteria Met: 10:51 Sepsis Focused Exam Date: 01/08/17 Sepsis Focused Exam Time: 13:07 Sepsis Focused Exam Complete: Yes Vital Signs & RN Notes Reviewed: Yes Capillary Refill: < 2 Seconds: Fingers, Toes Peripheral Pulses: Normal: Radial (R), Radial (L), Dorsalis Pedis (R), Dorsalis Pedis (L) Skin Color: Normal for Patient Respiratory Exam: normal lung sounds Cardiovascular Exam: normal rhythm, tachycardia
[2017-01-08 13:33] LABS: Glucose,Whole Blood 75 mg/dL (75-99)
[2017-01-08] MEDS: MULTIVITAMINS, THERA 1 EACH TAB PO SCH (15:33)
[2017-01-08] MEDS: THIAMINE 100 MG TAB PO SCH (15:33)
[2017-01-08] MEDS: LORazepam 2 MG/ML SYRINGE IV PRN ×6 (17:25→23:02)
[2017-01-08] MEDS ORDERED: HYDROcodone/APAP 5-325MG 1 EACH TAB PO PRN (18:52)
[2017-01-08] MEDS ORDERED: ACETAMINOPHEN TAB 500 MG TAB PO PRN (18:52)
[2017-01-08] MEDS ORDERED: cloNIDine HCL 0.1 MG TAB PO PRN (18:53)
[2017-01-08] MEDS ORDERED: hydrALAZINE HCL 20 MG/ML 1 ML VIAL IVP PRN (18:53)
[2017-01-08] MEDS: FAMOTIDINE 20 MG TAB PO SCH (20:39)
[2017-01-08] MEDS: D5W WITH KCL 20 MEQ/L 1,000 ML IV SCH (20:40)
[2017-01-08] MEDS ORDERED: TEMAZEPAM 15 MG CAP PO PRN (21:00)
[2017-01-08] MEDS: HEPARIN SODIUM,PORCINE 5,000 UNIT/ML 1 ML VIAL SQ SCH (21:45)
[2017-01-09] MEDS: LORazepam 2 MG/ML SYRINGE IV PRN ×5 (00:38→12:37)
[2017-01-09 05:03] LABS: Basophils # (A) 0.1 k/uL (0-0.2); Basophils % (A) 1 %; CH 32.6; CHCM 33.7; Eosinophils # (A) 0.1 k/uL (0-0.7); Eosinophils % (A) 1 %; HCT 42.4 % (39.0-53.0); HDW 2.22; Luc % (Auto) 1; Lymphocytes # (A) 1.1 k/uL (1.0-4.8); Lymphocytes % (A) 11 %; MCH 31.5 pg (25.0-35.0); MCHC 32.4 g/dL (31.0-37.0); MCV 97.3 fL (80.0-100.0); Monocytes # (A) 0.7 k/uL (0-1.0); Monocytes % (A) 7 %; Neutrophils # (A) 8.2 k/uL (1.3-7.7); Neutrophils % (A) 80 %; RBC 4.36 m/uL (4.30-5.90); RDW 13.9 % (11.5-15.5); WBC 10.2 k/uL (3.8-10.6); WBC (Perox) 11.07
[2017-01-09 05:10] LABS: HGB 13.7 gm/dL (13.0-17.5)
[2017-01-09 05:11] LABS: Alcohol <10 mg/dL; Anion Gap 6 mmol/L; Blood Urea Nitrogen 37 mg/dL (9-20); Calcium 7.9 mg/dL (8.4-10.2); Carbon Dioxide 25 mmol/L (22-30); Chloride 109 mmol/L (98-107); Glucose 124 mg/dL (74-99); Non-African American GFR(MDRD) >60 (>60 ml/min/1.73 sqM); Sodium 140 mmol/L (137-145)
[2017-01-09 05:17] LABS: Potassium 4.1 mmol/L (3.5-5.1)
--- NOTE | 2017-01-09 05:57 | HP ---
DATE OF ADMISSION: DATE OF SERVICE: 01/08/2017 CHIEF COMPLAINT: Alcohol intoxication, hypothermia and urinary tract infection with sepsis. HISTORY OF PRESENT ILLNESS: This 46-year-old gentleman with a past medical history of apparent GERD, GI bleed, hypertension, history of depression, history of alcohol gastritis, alcohol withdrawal and had not been followed by any primary physician in outpatient setting, apparently. 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 The patient was found unconscious with several vodka bottles around the patient. The patient was taken to [facility] Emergency Room and was admitted for further evaluation and treatment. In the ER, the emergency room evaluation, the patient was noted to have pulse of 91, blood pressure 135/80, respirations 18, temperature 88.4 indicating severe hypothermia and the room air pulse ox was 100%. Subsequently , the temperature improved to 98.2. The patient was transferred to ICU at this time. There is no history of any fever, rigors or chills. No history of headache, loss of consciousness or seizures. PAST MEDICAL HISTORY: History of GERD, GI bleed, hypertension, history of alcohol gastritis, significant anxiety, depression, panic disorder. Medications prior to admission include: 1. Desyrel 150 mg q.h.s. 2. Catapres 0.2 mg b.i.d. p.r.n. 3. Lidoderm patch 5% daily. 4. Motrin 800 mg t.i.d. p.r.n. 5. Neurontin 300 mg t.i.d. 6. Celexa 40 mg p.o. daily. Allergies are none. FAMILY HISTORY: No history heart disease or strokes in the family. SOCIAL HISTORY: History of smoking. History of alcohol intake. REVIEW OF SYSTEMS: Could not be taken because of change in mental status. PHYSICAL EXAM: The pulse is 115, blood pressure 142/74, respirations 18, temperature 96.9, pulse ox 97% on room air. HEENT: Conjunctivae normal. Oral mucosa moist. erythematous. NECK: No jugular venous distention. No carotid bruit. No lymph node enlargement. CARDIOVASCULAR: S1 and S2, muffled. No S3, no S4. RESPIRATORY: Breath sounds diminished at the bases. A few rhonchi, no crackles. ABDOMEN: Soft, nontender. No mass palpable. LEGS: Minimal edema, otherwise, no pain, no tenderness. NERVOUS SYSTEM: Higher function as mentioned. Moves all 4 limbs. No focal motor deficits. LYMPHATICS: No lymphadenopathy of neck, axillae or groin. SKIN: No ulcers, rashes or bleeding. Labs are at this time show WBC 19.3, hemoglobin 18.9. Sodium 152. UA noted. ASSESSMENT: 1. Acute alcohol intoxication as well as severe hypothermia. 2. Possible urinary tract infection with sepsis. 3. Increased WBC. 4. Increased hemoglobin. 5. Increased sodium with dehydration. 6. Decreased CO2. 7. Lactic acid 5.6. 8. Possible urinary tract infection. 9. History of EtOH. 10. Gastroesophageal reflux disease. 11. History of gastrointestinal bleed. 12. Hypertension, essential. 13. History of anxiety, depression, panic disorder, not otherwise specified. 14. History of THC. 15. FULL CODE. RECOMMENDATIONS AND DISCUSSION: In this 46-year-old gentleman who presented with multiple complex medical issues, will monitor the patient closely. Continue the current medications. Continue symptomatic treatment. I recommend CIWA protocol. Otherwise, supplement vitamins. I would also recommend empiric antibiotics because of concerns of UTI and sepsis also. Otherwise, obtain cultures. Monitor closely in the ICU and will consult Dr. Lambert for ICU management. Further recommendations to follow. I also would recommend the patient smoking and alcohol cessation. Continue to follow up with a primary physician in the outpatient setting also. Further recommendations will be obtained with social service evaluation and case management evaluation regarding the outpatient followup and discharge also. RICHARD
[2017-01-09] MEDS ORDERED: PANTOPRAZOLE 40 MG TABLET PO SCH (07:30)
[2017-01-09] MEDS: FAMOTIDINE 20 MG TAB PO SCH (08:41)
[2017-01-09] MEDS: D5W WITH KCL 20 MEQ/L 1,000 ML IV SCH (08:41)
[2017-01-09] MEDS: HEPARIN SODIUM,PORCINE 5,000 UNIT/ML 1 ML VIAL SQ SCH (08:41)
[2017-01-09] MEDS ORDERED: NICOTINE 14MG/24HR PATCH TRANSDERM SCH (09:00)
--- NOTE | 2017-01-09 10:43 | PN ---
This is the patient that I saw yesterday in the emergency room. The 46-year-old male was brought in by EMS. He was apparently found intoxicated and hypothermic under a bridge with whiskey bottle next to him. The patient was initially warmed from 88 to 92.9 degrees and transferred to the ICU for further management. The patient was dry and was given additional IV fluids. He was warm with a bear hugger and external active rewarming . Anyway, the patient is doing much better. The patient will be transferred out to the floor. Not much is known about this patient. He may have a history of alcoholic gastritis, previous alcohol withdrawal syndrome, hypertension. Current vital signs are stable. Temperature 98.8, heart rate 101, respiratory rate 27, blood pressure 141/84, mean 103. Saturations are 96% on room air. Appears in no acute distress. HEENT examination is grossly unremarkable. Mucous membranes are moist. No oral lesions. Neck is supple. Full range of motion. No adenopathy or thyromegaly. Neck veins are flat. Cardiovascular examination reveals regular rhythm and rate. S1, S2 normal. No S3, S4 murmur. Lungs reveal clear breath sounds. No wheezes or rhonchi. Abdomen is soft. Bowel sounds are heard. No masses or tenderness. Extremities are intact. No cyanosis, clubbing or edema. Skin is without rash. Neurologic examination is brief but nonfocal. The patient is on an IV of D5 of 0.45 with 20 of KCl at 75 mL an hour. He is on CIWA scale. The patient does appear to be relatively stable. Labs are reviewed. White count 10.2, hemoglobin 13.7, hematocrit 42.4, platelet count normal. Sodium, potassium normal. Chloride is 109, CO2 of 25, BUN and creatinine were 37 and 0.85. The rest of the labs are reviewed. Chest x-ray was reviewed. CAT scan of the brain was reviewed. Medications are reviewed. ASSESSMENT: 1. Alcohol intoxication with hypothermia. 2. Hypothermia-induced hemoconcentration. 3. Volume depletion. 4. Anion gap metabolic acidosis. 5. Prerenal azotemia. 6. Hypertension. 7. History of mood disorder. 8. History of chronic tobacco and alcohol abuse. PLAN: The patient appears to be doing relatively well. His lab abnormalities have corrected nicely. His temperature back to normal. No additional recommendations are made. Will continue to follow. The patient can be transferred out to the general medical floor. Prognosis is guarded. He is on the CIWA scale.
[2017-01-09 10:49] VITALS: TEMP 98.6
[2017-01-09 11:49] VITALS: PULSE 109
[2017-01-09] MEDS ORDERED: FOLIC ACID 1 MG TAB PO SCH (12:00)
[2017-01-09] MEDS: THIAMINE 100 MG TAB PO SCH (12:35)
[2017-01-09] MEDS: MULTIVITAMINS, THERA 1 EACH TAB PO SCH (12:35)
[2017-01-09 13:41] VITALS: BP 143/80; RESP 23
--- NOTE | 2017-01-09 21:01 | PN ---
DATE OF SERVICE: 01/09/2017 This 46-year-old gentleman was admitted with significant alcohol intoxication as well as possibly hyperthermia, urinary tract infection with sepsis being closely monitored. The patient is slightly improved sensorium. Patient receiving IV fluids and broad spectrum IV antibiotics. Cultures are pending at this time. Past medical history reviewed. REVIEW OF SYSTEMS: Could not be taken. The patient is still confused, mildly. Current medications are reviewed and include: 1. Tylenol. 2. [place] 5 mg. 3. Catapres. 4. Pepcid. 5. Folic acid. 6. Heparin. 7. CIWA protocol. 8. Habitrol 14. 9. Restoril. 10. Vitamin B1. PHYSICAL EXAMINATION: The patient is alert and oriented times two. Pulse 109, blood pressure 114/70, respirations 20, temperature normal, pulse ox 94% on room air. HEENT: Conjunctivae normal. NECK: No jugular venous distention. CARDIOVASCULAR: S1, S2 muffled. RESPIRATORY: Breath sounds diminished at the bases. A few scattered rhonchi and crackles. ABDOMEN: Soft, nontender. No mass palpable. LEGS: No edema. No swelling. CENTRAL NERVOUS SYSTEM: Diffusely weak. LABS: CBC within normal limits. Otherwise, glucose 124. Lactic acid 5.6 yesterday. ASSESSMENT: 1. Acute alcohol intoxication as well as severe hypothermia. 2. Possible urinary tract infection with sepsis, present on admission. 3. Increased WBC. 4. Increased hemoglobin. 5. Increased sodium with dehydration. 6. Decreased CO2. 7. Lactic acid 5.6, present on admission. 8. History of ETOH. 9. History of gastroesophageal reflux disease. 10. History of gastrointestinal bleed. 11. Hypertension, essential. 12. History of anxiety, depression, and panic disorder, not otherwise specified. 13. History of THC. 14. FULL CODE. RECOMMENDATIONS AND DISCUSSION: In this 46-year-old gentleman who presented with multiple complex medical issues, we will monitor the patient closely. Continue current medications. Continue symptomatic treatment. Continue with monitoring. Continue with antibiotics. Follow cultures. Otherwise, guarded prognosis because of multiple complex medical issues. Further recommendations to follow. See orders for details. I would also recommend social media marketing specialist and case management evaluate the patient because of the patient's issues with housing.
--- NOTE | 2017-01-10 10:41 | DS ---
DATE OF ADMISSION: 01/08/2017 DATE OF DISCHARGE: 01/09/2017 FINAL DIAGNOSES: 1. Acute alcohol intoxication as well as severe hypothermia. 2. Urinary tract infection with sepsis present on admission. 3. Increased WBC. 4. Increased hemoglobin. 5. Increased sodium and dehydration. 6. Decreased CO2. 7. Lactic acid is 5.6 8. History of Ethyl alcohol. 9. Gastroesophageal reflux disease. 10. History of gastrointestinal bleed. 11. Hypertension, essential. 12. History of anxiety, depression, panic disorder, not otherwise specified. 13. History of THC. 14. FULL CODE. DISCHARGE DISPOSITION: The patient LEFT THE HOSPITAL AGAINST MEDICAL ADVICE. HISTORY OF PRESENT ILLNESS: This is a 46-year-old gentleman with a past medical history of multiple medical problems admitted with significant EtOH, and as well as hypothermia and possible sepsis and UTI. Patient was treated symptomatically in the ICU; however, the patient's sensorium improved on the second day, but; however, the patient did not stay for completion of the treatment and evaluation. The patient LEFT THE HOSPITAL AGAINST MEDICAL ADVICE. Please refer to the staff notes and other progress notes for further details. Prognosis remains guarded throughout the hospital stay.
== END 2017-01-09 15:25 | disposition left against medical advice (07) | DRG 894 ==
LOC: EC 06:59 → 6ICU 10:08 → 6SEL 12:03 → 6ICU 13:00
PROVIDERS: ADMIT Hospitalist; ATTEND Hospitalist
PROC: HZ2ZZZZ Detoxification Services for Substance Abuse Treatment (ICD-10-PCS; principal; 2017-01-08)
DX: F10.129 Alcohol abuse with intoxication, unspecified (principal); A41.9 Sepsis, unspecified organism; T68.XXXA Hypothermia, initial encounter; E87.2 Acidosis; E87.0 Hyperosmolality and hypernatremia; N39.0 Urinary tract infection, site not specified; I10 Essential (primary) hypertension; K21.9 Gastro-esophageal reflux disease without esophagitis; F41.0 Panic disorder [episodic paroxysmal anxiety]; E86.0 Dehydration; F12.90 Cannabis use, unspecified, uncomplicated; K29.20 Alcoholic gastritis without bleeding; F39 Unspecified mood [affective] disorder; R79.89 Other specified abnormal findings of blood chemistry; R00.0 Tachycardia, unspecified; F17.200 Nicotine dependence, unspecified, uncomplicated; F41.9 Anxiety disorder, unspecified; F32.9 Major depressive disorder, single episode, unspecified; Z79.899 Other long term (current) drug therapy; Z53.21 Procedure and treatment not carried out due to patient leaving prior to being seen by health care provider; Z71.6 Tobacco abuse counseling; Z59.0 Homelessness; Z91.5 Personal history of self-harm; Z87.19 Personal history of other diseases of the digestive system; Z79.1 Long term (current) use of non-steroidal anti-inflammatories (NSAID); Y90.8 Blood alcohol level of 240 mg/100 ml or more
CPT/HCPCS: 36415; 70450; 71010; 80048; 80053; 80306; 80320; 81001; 82075; 83605; 83735; 84100; 85025; 85610; 93005; 96361; 96365; 99291

== ENCOUNTER 2017-01-09 17:04 | Emergency (ER) | payer OTHER ==
[2017-01-09 17:19] VITALS: TEMP 97.9
[2017-01-09] MEDS ORDERED: ZIPRASIDONE 20 MG VIAL IM STA (17:43)
[2017-01-09] MEDS ORDERED: LORazepam 2 MG/ML SYRINGE IV STA (17:43)
--- NOTE | 2017-01-09 17:52 | ED ---
Alcohol HPI - General Source: patient, EMS, RN notes reviewed, old records reviewed Mode of arrival: EMS Limitations: altered mental status - History of Present Illness MD Complaint: alcohol intoxication, alcohol dependence <Austin Blanchard - Last Filed: 01/10/17 00:19> <Ramses Lan - Last Filed: 01/10/17 01:37> - General Chief Complaint: Alcohol Stated Complaint: ETOH Time Seen by Provider: 01/09/17 17:04 - History of Present Illness Initial Comments: This is a 46-year-old male with a known history of alcoholism was just discharged from the hospital yesterday who is back today by EMS he was found lying in the grass near [facility] and home. There were no reports of trauma though it was noted upon arrival he did have evidence then said a abrasion in contusion to the right judaism/forehead. He is combative and on cooperative. No focal deficits are noted no other trauma was reported. No other information available at this time the patient is shouting expletives at the staff members. (Austin Blanchard) - Related Data Previous Rx's Medication Instructions Recorded Citalopram Hydrobromide [CeleXA] 40 mg PO DAILY 30 Days 12/04/16 Gabapentin [Neurontin] 300 mg PO TID 30 Days 12/04/16 Ibuprofen [Motrin] 800 mg PO TID PRN 30 Days 12/04/16 cloNIDine HCL [Catapres] 0.2 mg PO BID PRN 30 Days 12/04/16 traZODone HCL [Desyrel] 150 mg PO HS 30 Days 12/04/16 Lidocaine 5% Patch [Lidoderm 5% 1 patch TOPICAL DAILY 10 Days 12/05/16 Patch] Allergies Allergy/AdvReac Type Severity Reaction Status Date / Time No Known Allergies Allergy Verified 01/09/17 17:25 Review of Systems ROS Other: All systems not noted in ROS Statement are negative. Limitations: ROS unobtainable due to patients medical condition <Austin Blanchard - Last Filed: 01/10/17 00:19> ROS Other: All systems not noted in ROS Statement are negative. <Ramses Lan - Last Filed: 01/10/17 01:37> ROS Statement: Those systems with pertinent positive or pertinent negative responses have been documented in the HPI. Past Medical History Past Medical History: GERD/Reflux, GI Bleed, Hypertension Additional Past Medical History / Comment(s): Alcoholic gastritis; Alcohol withdrawal, 2015 upper GI bleed. History of Any Multi-Drug Resistant Organisms: Unobtainable Past Surgical History: No Surgical Hx Reported Additional Past Surgical History / Comment(s): Past surgical history documents that pt has never had any surgical procedures done. Past Anesthesia/Blood Transfusion Reactions: No Reported Reaction Additional Past Anesthesia/Blood Transfusion Reaction / Comment(s): Pt has never had surgery or blood transfusion per past medical records. Past Psychological History: Anxiety, Depression, Panic Disorder Additional Psychological History / Comment(s): Pt previously resided with his significant other-unknown at this time where he currently resides. [facility] indicated he is independent. He uses no assistive devices. He does not drive- he uses the bus to get places. He has a mood disorder. He was seen in [facility] ER 02/21/15 with overdose-was seen by psychiatric services once he was sober and deemed not a suicidal risk. Smoking Status: Current every day smoker Past Alcohol Use History: Abuse, Daily Additional Past Alcohol Use History / Comment(s): [facility] documented that he is a smoker and he started smoking at age [age]yrs. He is a ppd smoker. Also indicated daily drinker. Past Drug Use History: None Reported - Past Family History Sister(s) Family Medical History: No Reported History Additional Family Medical History / Comment(s): [facility] indicates patient has 3 sisters with no major medical problems. Son(s) Family Medical History: No Reported History Additional Family Medical History / Comment(s): [facility] indicates that patient has one son with no major medical problems. Father Family Medical History: No Reported History Additional Family Medical History / Comment(s): [facility] indicated that father is living and that pt does not believe he has any health problem. Mother Family Medical History: No Reported History Additional Family Medical History / Comment(s): [facility] indicates that mother is living and pt did not believe she has any health problems other than she is a smoker. <Austin Blanchard - Last Filed: 01/10/17 00:19> General Exam Limitations: altered mental status General appearance: anxious, lethargic Head exam: Present: normocephalic, other Eye exam: Present: normal appearance, PERRL, EOMI Pupils: Present: normal accommodation ENT exam: Present: mucous membranes dry Neck exam: Present: normal inspection. Absent: tenderness, meningismus, lymphadenopathy Respiratory exam: Present: normal lung sounds bilaterally. Absent: respiratory distress, wheezes, rales, rhonchi, stridor Cardiovascular Exam: Present: tachycardia GI/Abdominal exam: Present: soft, normal bowel sounds. Absent: distended, tenderness, guarding, rebound, rigid Rectal exam: Present: deferred Extremities exam: Present: normal inspection, full ROM, normal capillary refill Back exam: Present: normal inspection Neurological exam: Present: altered, CN II-XII intact. Absent: motor sensory deficit Psychiatric exam: Present: agitated (Angina weight be admitted), anxious Skin exam: Present: warm, dry, normal color. Absent: intact <Austin Blanchard - Last Filed: 01/10/17 00:19> <Ramses Lan - Last Filed: 01/10/17 01:37> - General Exam Comments Initial Comments: This is a well-developed well-nourished appearing male who is combative does demonstrate the smell of alcohol conjoiners on his breath (Austin Blanchard) Course <Austin Blanchard - Last Filed: 01/10/17 00:19> <Ramses Lan - Last Filed: 01/10/17 01:37> Vital Signs 01/09/17 01/09/17 17:15 22:42 Temperature 97.9 F Pulse Rate 130 H 94 Respiratory 20 16 Rate Blood Pressure 135/62 140/86 O2 Sat by Pulse 98 98 Oximetry - Reevaluation(s) Reevaluation #1: 01/10/17 00:27 The patient rested comfortably throughout the evening. He did require Geodon and he became a risk to himself and others. His care will be endorsed to Dr. Lan who will make the final disposition (Austin Blanchard) Medical Decision Making - Lab Data Result diagrams: 01/09/17 17:42 01/09/17 17:42 <Austin Blanchard - Last Filed: 01/10/17 00:19> - Lab Data Result diagrams: 01/09/17 17:42 01/09/17 17:42 <Ramses Lan - Last Filed: 01/10/17 01:37> - Lab Data Lab Results 05/10/17 05/10/17 05/10/17 Range/Units 17:42 17:42 17:42 WBC (3.8-10.6) k/uL RBC (4.30-5.90) m/uL Hgb (13.0-17.5) gm/dL Hct (39.0-53.0) % MCV (80.0-100.0) fL MCH (25.0-35.0) pg MCHC (31.0-37.0) g/dL RDW (11.5-15.5) % Plt Count (150-450) k/uL Neutrophils % % Lymphocytes % % Monocytes % % Eosinophils % % Basophils % % Neutrophils # (1.3-7.7) k/uL Lymphocytes # (1.0-4.8) k/uL Monocytes # (0-1.0) k/uL Eosinophils # (0-0.7) k/uL Basophils # (0-0.2) k/uL PT 9.9 (9.0-12.0) sec INR 1.0 (<1.1) APTT 19.8 L (22.0-30.0) sec Sodium 144 (137-145) mmol/L Potassium 3.8 (3.5-5.1) mmol/L Chloride 109 H (98-107) mmol/L Carbon Dioxide 19 L (22-30) mmol/L Anion Gap 16 mmol/L BUN 19 (9-20) mg/dL Creatinine 0.81 (0.66-1.25) mg/dL Est GFR (MDRD) Af Amer >60 (>60 ml/min/1.73 sqM) Est GFR (MDRD) Non-Af >60 (>60 ml/min/1.73 sqM) Glucose 84 (74-99) mg/dL Calcium 9.3 (8.4-10.2) mg/dL Magnesium 2.3 (1.6-2.3) mg/dL Total Bilirubin 1.2 (0.2-1.3) mg/dL AST 186 H (17-59) U/L ALT 75 H (21-72) U/L Alkaline Phosphatase 77 (38-126) U/L Total Creatine Kinase 4458 H (55-170) U/L CK-MB (CK-2) 14.6 H* (0.0-2.4) ng/mL CK-MB (CK-2) Rel Index Total Protein 6.4 (6.3-8.2) g/dL Albumin 3.8 (3.5-5.0) g/dL Amylase 60 (30-110) U/L Lipase 223 (23-300) U/L Urine Color Urine Appearance (Clear) Urine pH (5.0-8.0) Ur Specific [place] (1.001-1.035) Urine Protein (Negative) Urine Glucose (UA) (Negative) Urine Ketones (Negative) Urine Blood (Negative) Urine Nitrite (Negative) Urine Bilirubin (Negative) Urine Urobilinogen (<2.0) mg/dL Ur Leukocyte Esterase (Negative) Urine Opiates Screen (NotDetected) Ur Oxycodone Screen (NotDetected) Urine Methadone Screen (NotDetected) Ur Propoxyphene Screen (NotDetected) Ur Barbiturates Screen (NotDetected) U Tricyclic Antidepress (NotDetected) Ur Phencyclidine Scrn (NotDetected) Ur Amphetamines Screen (NotDetected) U Methamphetamines Scrn (NotDetected) U Benzodiazepines Scrn (NotDetected) Urine Cocaine Screen (NotDetected) U Marijuana (THC) Screen (NotDetected) Serum Alcohol 204 mg/dL 01/09/17 01/09/17 Range/Units 17:42 18:27 WBC 11.7 H (3.8-10.6) k/uL RBC 4.57 (4.30-5.90) m/uL Hgb 15.0 (13.0-17.5) gm/dL Hct 44.3 (39.0-53.0) % MCV 96.9 (80.0-100.0) fL MCH 32.9 (25.0-35.0) pg MCHC 33.9 (31.0-37.0) g/dL RDW 13.7 (11.5-15.5) % Plt Count 169 (150-450) k/uL Neutrophils % 75 % Lymphocytes % 16 % Monocytes % 6 % Eosinophils % 1 % Basophils % 0 % Neutrophils # 8.7 H (1.3-7.7) k/uL Lymphocytes # 1.9 (1.0-4.8) k/uL Monocytes # 0.7 (0-1.0) k/uL Eosinophils # 0.2 (0-0.7) k/uL Basophils # 0.0 (0-0.2) k/uL PT (9.0-12.0) sec INR (<1.1) APTT (22.0-30.0) sec Sodium (137-145) mmol/L Potassium (3.5-5.1) mmol/L Chloride (98-107) mmol/L Carbon Dioxide (22-30) mmol/L Anion Gap mmol/L BUN (9-20) mg/dL Creatinine (0.66-1.25) mg/dL Est GFR (MDRD) Af Amer (>60 ml/min/1.73 sqM) Est GFR (MDRD) Non-Af (>60 ml/min/1.73 sqM) Glucose (74-99) mg/dL Calcium (8.4-10.2) mg/dL Magnesium (1.6-2.3) mg/dL Total Bilirubin (0.2-1.3) mg/dL AST (17-59) U/L ALT (21-72) U/L Alkaline Phosphatase (38-126) U/L Total Creatine Kinase (55-170) U/L CK-MB (CK-2) (0.0-2.4) ng/mL CK-MB (CK-2) Rel Index Total Protein (6.3-8.2) g/dL Albumin (3.5-5.0) g/dL Amylase (30-110) U/L Lipase (23-300) U/L Urine Color Colorless Urine Appearance Clear (Clear) Urine pH 6.0 (5.0-8.0) Ur Specific [place] 1.002 (1.001-1.035) Urine Protein Negative (Negative) Urine Glucose (UA) Negative (Negative) Urine Ketones Negative (Negative) Urine Blood Negative (Negative) Urine Nitrite Negative (Negative) Urine Bilirubin Negative (Negative) Urine Urobilinogen <2.0 (<2.0) mg/dL Ur Leukocyte Esterase Negative (Negative) Urine Opiates Screen Not Detected (NotDetected) Ur Oxycodone Screen Not Detected (NotDetected) Urine Methadone Screen Not Detected (NotDetected) Ur Propoxyphene Screen Not Detected (NotDetected) Ur Barbiturates Screen Not Detected (NotDetected) U Tricyclic Antidepress Not Detected (NotDetected) Ur Phencyclidine Scrn Not Detected (NotDetected) Ur Amphetamines Screen Not Detected (NotDetected) U Methamphetamines Scrn Not Detected (NotDetected) U Benzodiazepines Scrn Detected H (NotDetected) Urine Cocaine Screen Not Detected (NotDetected) U Marijuana (THC) Screen Not Detected (NotDetected) Serum Alcohol mg/dL Disposition <Austin Blanchard - Last Filed: 01/10/17 00:19> Time of Disposition: 01:37 <Ramses Lan - Last Filed: 01/10/17 01:37> Clinical Impression: Alcohol abuse Disposition: HOME SELF-CARE Condition: Good Instructions: Alcohol Intoxication (ED)
[2017-01-09 17:54] LABS: Basophils % (A) 0 %; CH 33.3; CHCM 34.5; Eosinophils # (A) 0.2 k/uL (0-0.7); Eosinophils % (A) 1 %; HCT 44.3 % (39.0-53.0); HDW 2.24; Luc # (Auto) 0.17; Luc % (Auto) 1; Lymphocytes # (A) 1.9 k/uL (1.0-4.8); Lymphocytes % (A) 16 %; MCH 32.9 pg (25.0-35.0); MCHC 33.9 g/dL (31.0-37.0); MCV 96.9 fL (80.0-100.0); Mean Platelet Volume 7.4; Monocytes # (A) 0.7 k/uL (0-1.0); Monocytes % (A) 6 %; Neutrophils # (A) 8.7 k/uL (1.3-7.7); Neutrophils % (A) 75 %; RBC 4.57 m/uL (4.30-5.90); RDW 13.7 % (11.5-15.5); WBC 11.7 k/uL (3.8-10.6); WBC (Perox) 11.38
[2017-01-09] MEDS ORDERED: SODIUM CHLORIDE 0.9% 1,000 ML with MVI, ADULT NO.4 WITH VIT K 10 ML, THIAMINE 100 MG, F... IV ONE ×4 (18:00)
[2017-01-09 18:11] LABS: ALT 75 U/L (21-72); AST 186 U/L (17-59); Alkaline Phosphatase 77 U/L (38-126); Amylase 60 U/L (30-110); Anion Gap 16 mmol/L; Blood Urea Nitrogen 19 mg/dL (9-20); Calcium 9.3 mg/dL (8.4-10.2); Carbon Dioxide 19 mmol/L (22-30); Chloride 109 mmol/L (98-107); Glucose 84 mg/dL (74-99); Magnesium 2.3 mg/dL (1.6-2.3); Non-African American GFR(MDRD) >60 (>60 ml/min/1.73 sqM); Potassium 3.8 mmol/L (3.5-5.1); Sodium 144 mmol/L (137-145); Total Bilirubin 1.2 mg/dL (0.2-1.3); Total Protein 6.4 g/dL (6.3-8.2)
[2017-01-09 18:12] LABS: Prothrombin Time 9.9 sec (9.0-12.0)
[2017-01-09 18:21] LABS: Alcohol 204 mg/dL
[2017-01-09 18:23] LABS: Partial Thromboplastin Time 19.8 sec (22.0-30.0)
[2017-01-09 18:37] LABS: Appearance,Urine Clear (Clear); Bilirubin,Urine Negative (Negative); Glucose,Urine (UA) Negative (Negative); Ketones,Urine Negative (Negative); Leukocyte Esterase,Urine Negative (Negative); Nitrite,Urine Negative (Negative); Protein,Urine Negative (Negative); Specific Gravity,Urine 1.002 (1.001-1.035); UA Billing (MACRO vs. MICRO) CHEM; Urobilinogen,Urine <2.0 mg/dL (<2.0)
[2017-01-09 18:53] LABS: Creatine Kinase MB 14.6 ng/mL (0.0-2.4)
--- NOTE | 2017-01-09 19:54 | CT ---
EXAMINATION TYPE: CT brain wo con DATE OF EXAM: 01/09/2017 7:42 PM COMPARISON: 01/08/2017 HISTORY: Right frontal injury CT DLP: 1116 mGycm Automated exposure control for dose reduction was used. FINDINGS: Ventricles and sulci appear normal. There is no mass effect nor midline shift. There is no sign of in tracranial hemorrhage. Calvarium is intact. IMPRESSION: Negative unenhanced head CT scan. No change.
--- NOTE | 2017-01-09 20:18 | XR ---
EXAMINATION TYPE: XR chest 1V portable DATE OF EXAM: 01/09/2017 8:12 PM COMPARISON: Yesterday HISTORY: Chest pain TECHNIQUE: Single frontal view of the chest is obtained. FINDINGS: Heart and mediastinum are normal. Lungs are clear. Diaphragm is normal. Bony thorax is int act. IMPRESSION: Normal chest. No change.
[2017-01-10 01:51] VITALS: BP 169/110; PULSE 136; RESP 18
[2017-01-10] MEDS ORDERED: chlordiazePOXIDE 25 MG CAP PO STA ×2 (01:51)
== END 2017-01-10 02:12 | disposition home or self-care (01) ==
LOC: EC 17:04
DX: F10.10 Alcohol abuse, uncomplicated (principal); F17.200 Nicotine dependence, unspecified, uncomplicated
CPT/HCPCS: 99285; 36415; 80053; 82150; 82550; 82553; 83690; 83735; 85025; 85610; 85730; 81003; 80306; 80320; 71010; 70450; 96365; 96366 ×7; 96375; 96372; J2060; J3411; J3486

== ENCOUNTER 2017-01-10 05:56 | Inpatient (IN) | payer MEDICAID, OTHER ==
[2017-01-10] MEDS ORDERED: ACETAMINOPHEN TAB 325 MG TAB PO STA (07:51)
--- NOTE | 2017-01-10 08:13 | ED ---
General Adult HPI - General Chief complaint: Psychiatric Symptoms Stated complaint: Dizzy, headache Time Seen by Provider: 01/10/17 07:21 Source: patient, RN notes reviewed, old records reviewed Mode of arrival: ambulatory Limitations: no limitations - History of Present Illness Initial comments: This is a 46-year-old male to the ER for evaluation. Patient is is coming to the ER complaining of suicidal thoughts. Patient has positive history of alcohol abuse and intoxication. Patient's coming in acutely intoxicated today. Patient has multiple recent ER visits revolving around similar symptoms, Ivan intoxication - Related Data Home Medications Medication Instructions Recorded Confirmed ARIPiprazole [Abilify] 10 mg PO HS 01/10/17 01/10/17 Gabapentin [Neurontin] 600 mg PO TID 01/10/17 01/10/17 cloNIDine HCL [Catapres] 0.1 mg PO DAILY 01/10/17 01/10/17 cloNIDine HCL [Catapres] 0.2 mg PO HS 01/10/17 01/10/17 hydrOXYzine PAMOATE [Vistaril] 25 mg PO BID PRN 01/10/17 01/10/17 traZODone HCL [Desyrel] 200 mg PO HS 01/10/17 01/10/17 Previous Rx's Medication Instructions Recorded Citalopram Hydrobromide [CeleXA] 40 mg PO DAILY 30 Days 12/04/16 Ibuprofen [Motrin] 800 mg PO TID PRN 30 Days 12/04/16 Lidocaine 5% Patch [Lidoderm 5% 1 patch TOPICAL DAILY 10 Days 12/05/16 Patch] Allergies Allergy/AdvReac Type Severity Reaction Status Date / Time No Known Allergies Allergy Verified 01/10/17 06:08 Review of Systems ROS Statement: Those systems with pertinent positive or pertinent negative responses have been documented in the HPI. ROS Other: All systems not noted in ROS Statement are negative. Past Medical History Past Medical History: GERD/Reflux, GI Bleed, Hypertension Additional Past Medical History / Comment(s): Alcoholic gastritis; Alcohol withdrawal, 2015 upper GI bleed. History of Any Multi-Drug Resistant Organisms: Unobtainable Past Surgical History: No Surgical Hx Reported Additional Past Surgical History / Comment(s): Past surgical history documents that pt has never had any surgical procedures done. Past Anesthesia/Blood Transfusion Reactions: No Reported Reaction Additional Past Anesthesia/Blood Transfusion Reaction / Comment(s): Pt has never had surgery or blood transfusion per past medical records. Past Psychological History: Anxiety, Depression, Panic Disorder Additional Psychological History / Comment(s): Pt previously resided with his significant other-unknown at this time where he currently resides. [facility] indicated he is independent. He uses no assistive devices. He does not drive- he uses the bus to get places. He has a mood disorder. He was seen in [facility] ER 02/21/15 with overdose-was seen by psychiatric services once he was sober and deemed not a suicidal risk. Smoking Status: Current every day smoker Past Alcohol Use History: Abuse, Daily Additional Past Alcohol Use History / Comment(s): [facility] documented that he is a smoker and he started smoking at age [age]yrs. He is a ppd smoker. Also indicated daily drinker. Past Drug Use History: None Reported - Past Family History Sister(s) Family Medical History: No Reported History Additional Family Medical History / Comment(s): [facility] indicates patient has 3 sisters with no major medical problems. Son(s) Family Medical History: No Reported History Additional Family Medical History / Comment(s): [facility] indicates that patient has one son with no major medical problems. Father Family Medical History: No Reported History Additional Family Medical History / Comment(s): [facility] indicated that father is living and that pt does not believe he has any health problem. Mother Family Medical History: No Reported History Additional Family Medical History / Comment(s): [facility] indicates that mother is living and pt did not believe she has any health problems other than she is a smoker. General Exam Limitations: no limitations General appearance: alert, in no apparent distress Head exam: Present: atraumatic, normocephalic, normal inspection Eye exam: Present: normal appearance, PERRL, EOMI. Absent: scleral icterus, conjunctival injection, periorbital swelling ENT exam: Present: normal exam, mucous membranes moist Neck exam: Present: normal inspection. Absent: tenderness, meningismus, lymphadenopathy Respiratory exam: Present: normal lung sounds bilaterally. Absent: respiratory distress, wheezes, rales, rhonchi, stridor Cardiovascular Exam: Present: regular rate, normal rhythm, normal heart sounds. Absent: systolic murmur, diastolic murmur, rubs, gallop, clicks GI/Abdominal exam: Present: soft, normal bowel sounds. Absent: distended, tenderness, guarding, rebound, rigid Extremities exam: Present: normal inspection, full ROM, normal capillary refill. Absent: tenderness, pedal edema, joint swelling, calf tenderness Back exam: Present: normal inspection Neurological exam: Present: alert, oriented X3, CN II-XII intact Psychiatric exam: Present: normal affect, normal mood Skin exam: Present: warm, dry, intact, normal color. Absent: rash Course Vital Signs 01/10/17 01/10/17 01/10/17 06:05 06:28 07:08 Temperature 97.0 F L 98.0 F Pulse Rate 131 H 125 H 104 H Respiratory 18 16 Rate Blood Pressure 145/85 138/79 O2 Sat by Pulse 95 94 L Oximetry - Reevaluation(s) Reevaluation #1: 01/10/17 11:02 Patient's medically clear for psychiatric evaluation, seen and evaluated by psychiatry Medical Decision Making - Medical Decision Making 46 male the ER for evaluation of psychiatric disease. Patient coming in for mental health evaluation secondary to suicidal thoughts. Patient will be admitted for psychiatric evaluation and treatment - Lab Data Lab Results 01/10/17 Range/Units 06:39 Urine Opiates Screen Not Detected (NotDetected) Ur Oxycodone Screen Not Detected (NotDetected) Urine Methadone Screen Not Detected (NotDetected) Ur Propoxyphene Screen Not Detected (NotDetected) Ur Barbiturates Screen Not Detected (NotDetected) U Tricyclic Antidepress Not Detected (NotDetected) Ur Phencyclidine Scrn Not Detected (NotDetected) Ur Amphetamines Screen Not Detected (NotDetected) U Methamphetamines Scrn Not Detected (NotDetected) U Benzodiazepines Scrn Detected H (NotDetected) Urine Cocaine Screen Not Detected (NotDetected) U Marijuana (THC) Screen Not Detected (NotDetected) Disposition Clinical Impression: Depression, Acute anxiety, Suicidal ideation Disposition: TRANSFER TO PSYCH HOSP/UNIT Condition: Fair
[2017-01-10] MEDS ORDERED: ZIPRASIDONE 20 MG VIAL IM PRN (10:32)
[2017-01-10] MEDS ORDERED: MAGNESIUM HYDROXIDE 2,400 MG/10 ML CUP PO PRN (10:32)
[2017-01-10] MEDS ORDERED: MAG HYDROX/AL HYDROX/SIMETH 30 ML CUP PO PRN (10:32)
[2017-01-10] MEDS ORDERED: LORazepam 2 MG/ML SYRINGE IM PRN (10:35)
[2017-01-10 12:06] LABS: Appearance,Urine Clear (Clear); Bilirubin,Urine Negative (Negative); Glucose,Urine (UA) Negative (Negative); Ketones,Urine Negative (Negative); Leukocyte Esterase,Urine Negative (Negative); Nitrite,Urine Negative (Negative); Protein,Urine Trace (Negative); Specific Gravity,Urine 1.022 (1.001-1.035); UA Billing (MACRO vs. MICRO) CHEM; Urobilinogen,Urine <2.0 mg/dL (<2.0)
[2017-01-10] MEDS: LORazepam 1 MG TAB PO PRN ×2 (12:07→19:05)
[2017-01-10] MEDS ORDERED: NICOTINE 14MG/24HR PATCH TRANSDERM STA (12:07)
[2017-01-10] MEDS: ACETAMINOPHEN TAB 325 MG TAB PO PRN ×2 (12:08→20:17)
[2017-01-10 12:26] VITALS: BMI 23.7
--- NOTE | 2017-01-10 12:58 | P.HP ---
Psychiatric H&P - . H&P Date: 01/10/17 History & Physical: DATE OF SERVICE: 01/10/2017 IDENTIFYING DATA: This patient is a 46-year-old single male who was admitted to the mental health unit through ER. . HISTORY OF PRESENT ILLNESS: The patient presents with My fiancee and I have not gotten over it. Pt reports he wanders around drinking, came in and left , then fell and hit head. States he used to work at [employer], did whatever they needed, for 4 years. Homeless. Was at [place] but could not tolerate the crowd. Says he is disturbed by the background noise, cannot go to large grocery stores, or big box, for at least 8-10 years after his depression started. Says he has depression since his late teens. Says he can go without etoh, longest period of sobriety 1 year. Reports he is depressed, some thoughts of suicide, "I chicken out", but thought about jumping off a bridge. PAST PSYCHIATRIC HISTORY: Reports 4 admission, 3 here and 1 in [place]. Reports he made a half-hearted attempt at cutting wrists, no treatment needed. Reports celexa has been helpful, and gabapentin. Sees Yassine at [facility] PAST MEDICAL HISTORY: GI bleed, gastritis, Hx of rib fractures, hx of UTI. ALLERGIES: No known drug allergies. CHEMICAL DEPENDENCY HISTORY: Began drinking in late teens, etoh and cannabis, it became a problem in his late 20s. No IVDU. Says he is not interested in using anything.. Can't go to rehab due to the crowds. FAMILY PSYCHIATRIC HISTORY: Denies. FAMILY CHEMICAL DEPENDENCY HISTORY:Denies. LEGAL HISTORY: Denies current problems. 2 DUIs in past.. SOCIAL HISTORY: Reports his childhood was good, parents when he was 17- 18, spent time with his grandparents, rarely speaks to his mother, father raised him and speaks every few weeks. Denies physical or sexual abuse. Academically average, GED. No service. [place], but wanted to be in [place]. MENTAL STATUS EXAM: Patient alert and oriented 3, poor eye contact, poorly groomed in hospital attire. Speech low volume, rate and decreased production. Coherent, logical and circumstantial thought process. No LORE, no FOI. No TB/TW/ TI Denied auditory and visual hallucinations. Denied paranoid ideation, delusions or IOR. Memory impaired Cognitionaverage Mood dysphoric, affect constricted, congruent with mood. Denies suicidal ideation, denies homicidal ideation. Insight none; Judgment grossly intact for treatment purposes . STRENGTHS: good worker. WEAKNESSES: poor coping. IMPRESSIONS: 46 year old with roughly 20 year history of problematic drinking that by his report has gotten worse after the of his fiancee in August. He became irritated when asked about cause of her , that it was not due to drugs as they had decided to stop using the month prior her . Patient has been in and out of ER and medical floors over the past few months. He went to [place] but cannot tolerate crowds of any size c/o background noise being over whelming. He is suicidal but says he is a chicken but the danger is when drinking and loss of fear. No psychosis No history of andrea, hypomania. +Suicide, no homicidal ideation. PLAN: . Patient requires inpatient psychiatric stabilization and for safety. Patient cannot identify anything he wants to achieve with this hospital stay but verbalizes wish to be better. Will monitor for etoh withdrawal, CIWA with lorazepam. Continue his outpatient medications. Milieu therapy, needs substance abuse treatment. Allergies Allergy/AdvReac Type Severity Reaction Status Date / Time No Known Allergies Allergy Verified 01/10/17 11:31 Vital Signs Temp 98.7 F 01/10/17 11:29 Pulse 82 01/10/17 11:29 Resp 18 01/10/17 11:29 BP 130/77 01/10/17 11:29 Pulse Ox 93 L 01/10/17 11:29 Intake & Output 01/09/17 01/10/17 01/10/17 18:59 06:59 18:59 Weight 72.8 kg Laboratory Last Values Urine Color Yellow 01/10/17 06:39 Urine Appearance Clear (Clear) 01/10/17 06:39 Urine pH 6.0 (5.0-8.0) 01/10/17 06:39 Ur Specific [place] 1.022 (1.001-1.035) 01/10/17 06:39 Urine Protein Trace (Negative) H 01/10/17 06:39 Urine Glucose (UA) Negative (Negative) 01/10/17 06:39 Urine Ketones Negative (Negative) 01/10/17 06:39 Urine Blood Negative (Negative) 01/10/17 06:39 Urine Nitrite Negative (Negative) 01/10/17 06:39 Urine Bilirubin Negative (Negative) 01/10/17 06:39 Urine Urobilinogen <2.0 mg/dL (<2.0) 01/10/17 06:39 Ur Leukocyte Esterase Negative (Negative) 01/10/17 06:39 Urine Opiates Screen Not Detected (NotDetected) 01/10/17 06:39 Ur Oxycodone Screen Not Detected (NotDetected) 01/10/17 06:39 Urine Methadone Screen Not Detected (NotDetected) 01/10/17 06:39 Ur Propoxyphene Screen Not Detected (NotDetected) 01/10/17 06:39 Ur Barbiturates Screen Not Detected (NotDetected) 01/10/17 06:39 U Tricyclic Antidepress Not Detected (NotDetected) 01/10/17 06:39 Ur Phencyclidine Scrn Not Detected (NotDetected) 01/10/17 06:39 Ur Amphetamines Screen Not Detected (NotDetected) 01/10/17 06:39 U Methamphetamines Scrn Not Detected (NotDetected) 01/10/17 06:39 U Benzodiazepines Scrn Detected (NotDetected) H 01/10/17 06:39 Urine Cocaine Screen Not Detected (NotDetected) 01/10/17 06:39 U Marijuana (THC) Screen Not Detected (NotDetected) 01/10/17 06:39 01/10/17 12:13
--- NOTE | 2017-01-10 15:05 | P.CONS ---
History of Present Illness - Reason for Consult Consult date: 01/10/17 - Chief Complaint Depression - History of Present Illness This is a 46-year-old male with no primary care physician. He has a medical history of depression, anxiety and high blood pressure, although has never been on medication for his high blood pressure. He reports he drank two fifths of liquor last night and sustained a fall, hitting his head on the concrete. He was then brought to the emergency department. He also expressed thoughts of suicide by jumping off a bridge. The patient is a long history of alcohol abuse. The patient complains of worsening depression and an increase in his alcohol consumption after his fiance in August. He reports he is homeless. And was fired from his job from his job a few months ago due to his alcohol abuse. Patient's UA was clear and toxicology showed benzodiazepines. Review of Systems Constitutional: Denies as per HPI, Denies anorexia, Denies chills, Denies chronic headaches, Denies chronic pain, Denies daytime sleepiness, Denies fatigue, Denies fever, Denies lethargy, Denies malaise, Denies night sweats, Denies poor appetite, Denies sweats, Denies weakness, Denies weight gain, Denies weight loss Eyes: denies blurred vision, denies decreased vision, denies discharge, denies dry eye, denies loss of vision, denies tunnel vision/blind spots Ears: deny: decreased hearing, tinnitus Ears, nose, mouth and throat: Denies as per HPI, Denies ant. neck pain, Denies bleeding gums, Denies dental pain, Denies dysphagia, Denies epistaxis, Denies headache, Denies hoarseness, Denies mouth pain, Denies nasal congestion, Denies nasal discharge, Denies neck fullness/pressure, Denies neck lump, Denies nose pain, Denies odynophagia, Denies post-nasal drip, Denies sinus pain, Denies sinus pressure, Denies swelling in mouth, Denies swelling in throat, Denies sore throat, Denies vertigo, Denies voice changes Cardiovascular: Reports high blood pressure, Denies as per HPI, Denies chest pain, Denies claudication, Denies decreased exercise tolerance, Denies dyspnea on exertion, Denies edema, Denies irregular heart beat, Denies leg edema, Denies lightheadedness, Denies orthopnea, Denies palpitations, Denies paroxysmal nocturnal dyspnea, Denies phlebitis, Denies rapid heart beat, Denies shortness of breath, Denies syncope Respiratory: Reports cough, Denies as per HPI, Denies congestion, Denies cough with sputum, Denies dyspnea, Denies excessive sputum, Denies hemoptysis, Denies home oxygen, Denies pain, Denies pain on inspiration, Denies pleurisy, Denies respiratory infections, Denies sleep apnea, Denies snoring, Denies wheezing Gastrointestinal: Denies as per HPI, Denies abdominal pain, Denies belching, Denies bloating, Denies BRBPR, Denies change in bowel habits, Denies coffee ground emesis, Denies constipation, Denies diarrhea, Denies dyspepsia, Denies early satiety, Denies excessive gas, Denies heartburn, Denies hematemesis, Denies hematochezia, Denies indigestion, Denies jaundice, Denies lactose intolerance, Denies loss of appetite, Denies melena, Denies nausea, Denies vomiting Genitourinary: Denies as per HPI, Denies decreased libido, Denies difficulties fathering child, Denies discharge, Denies dysuria, Denies erectile dysfunction, Denies flank pain, Denies genital pain, Denies genital sores, Denies hematuria, Denies impotence, Denies incontinence, Denies kidney stones, Denies nocturia, Denies polyuria, Denies testicular lump, Denies testicular pain, Denies urinary frequency, Denies urinary hesitancy, Denies urinary retention Musculoskeletal: Denies as per HPI, Denies arm numbness/tingling, Denies atrophy , Denies fractures, Denies frequent falls, Denies gait dysfunction, Denies hot joints, Denies leg numbness/tingling, Denies limitation of motion, Denies loss of height, Denies low back pain, Denies morning stiffness, Denies muscle cramps , Denies muscle weakness, Denies myalgias, Denies neck pain, Denies neck stiffness, Denies prior amputations, Denies redness of joints, Denies shooting arm pain, Denies shooting leg pain Integumentary: Reports rash, Denies as per HPI, Denies acne, Denies boils, Denies brittle nails, Denies change in hair/nails, Denies color changes, Denies darkening of skin, Denies depigmentation, Denies dryness, Denies foot/leg ulcers , Denies growths, Denies hirsutism, Denies lesions, Denies onychomycosis, Denies pruritus, Denies sores, Denies striae, Denies unusual bruising, Denies wounds Neurological: Denies as per HPI, Denies aphasia, Denies ataxia, Denies balance difficulties, Denies burning pain, Denies change in mentation, Denies change in smell/taste, Denies change in speech, Denies confusion, Denies convulsions, Denies double vision, Denies gait dysfunction, Denies head injury, Denies hearing difficulties, Denies lack of coordination, Denies loss of vision, Denies memory loss, Denies migraines, Denies motor disturbance, Denies numbness , Denies paralysis, Denies paresthesias, Denies seizures, Denies sensory deficit , Denies spasticity, Denies syncope, Denies tic, Denies tingling, Denies transient paralysis, Denies tremors, Denies vertigo, Denies weakness, Denies visual changes Psychiatric: Reports anxiety, Reports depression, Reports irritability, Reports suicidal ideation, Denies as per HPI, Denies anhedonia, Denies anxiety attacks, Denies change in appetite, Denies change in libido, Denies change in sleep habits, Denies confusion, Denies difficulty concentrating, Denies disorientation , Denies hallucinations, Denies hopelessness, Denies hypersomnia, Denies insomnia, Denies memory loss, Denies mood swings, Denies paranoia, Denies sadness/tearfulness, Denies sleep disturbances Endocrine: Denies as per HPI, Denies cold intolerance, Denies deepening of the voice, Denies excessive sweating, Denies excessive thirst, Denies fatigue, Denies flushing, Denies heat intolerance, Denies high blood sugars, Denies increase in ring/shoe/hat size, Denies low blood sugars, Denies nocturia, Denies palpitations, Denies polydipsia, Denies polyphagia, Denies polyuria, Denies proptosis, Denies recent glucocorticoid use, Denies thyroid mass, Denies weight change Hematologic/Lymphatic: Denies as per HPI, Denies easy bleeding, Denies easy bruising, Denies lymphadenopathy, Denies lymphedema, Denies thrombophilia Allergic/Immunologic: Denies as per HPI, Denies allergic rhinitis, Denies anaphylaxis, Denies angioedema, Denies gluten intolerance, Denies persistent infections, Denies seasonal allergies, Denies urticaria, Denies wheezing Past Medical History Past Medical History: GERD/Reflux, GI Bleed, Hypertension Additional Past Medical History / Comment(s): Alcoholic gastritis; Alcohol withdrawal, 2015 upper GI bleed. History of Any Multi-Drug Resistant Organisms: Unobtainable Past Surgical History: No Surgical Hx Reported Additional Past Surgical History / Comment(s): Past surgical history documents that pt has never had any surgical procedures done. Past Anesthesia/Blood Transfusion Reactions: No Reported Reaction Additional Past Anesthesia/Blood Transfusion Reaction / Comm: Pt has never had surgery or blood transfusion per past medical records. Past Psychological History: Anxiety, Depression, Panic Disorder Additional Psychological History / Comment(s): Pt previously resided with his significant other-unknown at this time where he currently resides. PMH indicated he is independent. He uses no assistive devices. He does not drive- he uses the bus to get places. He has a mood disorder. He was seen in [facility] ER 02/21/15 with overdose-was seen by psychiatric services once he was sober and deemed not a suicidal risk. Smoking Status: Current every day smoker Past Alcohol Use History: Abuse, Daily Additional Past Alcohol Use History / Comment(s): [facility] documented that he is a smoker and he started smoking at age [age]yrs. He is a ppd smoker. Also indicated daily drinker. Past Drug Use History: None Reported, Marijuana - Past Family History Sister(s) Family Medical History: No Reported History Additional Family Medical History / Comment(s): PM indicates patient has 3 sisters with no major medical problems. Son(s) Family Medical History: No Reported History Additional Family Medical History / Comment(s): [facility] indicates that patient has one son with no major medical problems. Father Family Medical History: No Reported History Additional Family Medical History / Comment(s): PMH indicated that father is living and that pt does not believe he has any health problem. Mother Family Medical History: No Reported History Additional Family Medical History / Comment(s): PMH indicates that mother is living and pt did not believe she has any health problems other than she is a smoker. Medications and Allergies Home Medications Medication Instructions Recorded Confirmed Type ARIPiprazole [Abilify] 10 mg PO HS 01/10/17 01/10/17 History Gabapentin [Neurontin] 600 mg PO TID 01/10/17 01/10/17 History cloNIDine HCL [Catapres] 0.1 mg PO DAILY 01/10/17 01/10/17 History cloNIDine HCL [Catapres] 0.2 mg PO HS 01/10/17 01/10/17 History hydrOXYzine PAMOATE [Vistaril] 25 mg PO BID PRN 01/10/17 01/10/17 History traZODone HCL [Desyrel] 200 mg PO HS 01/10/17 01/10/17 History Allergies Allergy/AdvReac Type Severity Reaction Status Date / Time No Known Allergies Allergy Verified 01/10/17 11:31 Physical Exam Vitals: Vital Signs Temp Pulse Resp BP Pulse Ox 01/10/17 12:18 98.7 F 82 18 130/77 93 L 01/10/17 11:29 98.7 F 82 18 130/77 93 L Intake and Output 01/09/17 01/10/17 01/10/17 22:59 06:59 14:59 Other: Weight 72.8 kg Patient Weight 01/11/17 06:59 Weight 72.8 kg General appearance: Alert, in no acute distress, poorly groomed HEENT exam: Normocephalic, atraumatic, pupils equal round react to light, mucous membranes moist oropharynx is clear Neck exam: Supple, trachea midline, no lymphadenopathy, no tenderness, no thyromegaly Respiratory exam: Lungs sounds are clear to auscultation bilaterally, no wheezes , no rhonchi, no rales Cardiovascular exam: Normal S1 and S2, no S3 or S4. Regular rate and rhythm no murmurs rubs gallops or clicks Abdominal exam: Positive bowel sounds, soft, nontender, nondistended, no masses , no rebound, no organomegaly Extremities exam: No significant deformity or joint abnormality, no edema, peripheral pulses are intact Psychiatric exam: Normal affect, normal mood Neurologic exam: Cranial nerves II through XII are intact, strength and sensation symmetric, patient is alert oriented to person place and time Assessment and Plan Plan: 1. Depression with suicidal ideation. Patient admitted to the mental health unit. Continue current plan of care. 2. Alcohol intoxication. Continue Ativan as ordered by psych. 3. Tobacco use. nicotine patch as ordered. The above impression and plan of care have been discussed and directed by signing physician. Deanna Linn nurse practitioner acting as scribe for signing physician.
[2017-01-10] MEDS: GABAPENTIN 300 MG CAP PO SCH ×2 (16:17→20:16)
[2017-01-10] MEDS: traZODone HCL 50 MG TAB PO SCH (20:16)
--- NOTE | 2017-01-10 22:05 | US ---
EXAMINATION TYPE: US venous doppler duplex LE LT DATE OF EXAM: 01/10/2017 9:53 PM COMPARISON: NONE CLINICAL HISTORY: Edema, Warm to touch, weak peripheral pulse. . SIDE PERFORMED: Left TECHNIQUE: The lower extremity deep venous system is examined utilizing real time linear array sonog dahlia with graded compression, doppler sonography and color-flow sonography. VESSELS IMAGED: External Iliac Vein (EIV) Common Femoral Vein Deep Femoral Vein Greater Saphenous Vein * Femoral Vein Popliteal Vein Small Saphenous Vein * Proximal Calf Veins (* superficial vessels) Left Leg: Negative for DVT IMPRESSION: Negative exam. No evidence of deep venous thrombosis in the left leg.
[2017-01-11] MEDS: GABAPENTIN 300 MG CAP PO SCH ×3 (08:54→21:21)
[2017-01-11] MEDS: CITALOPRAM HYDROBROMIDE 20 MG TAB PO SCH (08:54)
[2017-01-11] MEDS ORDERED: NICOTINE 14MG/24HR PATCH TRANSDERM SCH (09:00)
[2017-01-11 10:27] LABS: Basophils % (A) 0 %; CH 32.4; CHCM 32.7; Eosinophils # (A) 0.2 k/uL (0-0.7); Eosinophils % (A) 2 %; HCT 44.6 % (39.0-53.0); HDW 2.09; HGB 14.8 gm/dL (13.0-17.5); Luc % (Auto) 3; Lymphocytes # (A) 1.6 k/uL (1.0-4.8); Lymphocytes % (A) 23 %; MCH 33.1 pg (25.0-35.0); MCHC 33.3 g/dL (31.0-37.0); MCV 99.4 fL (80.0-100.0); Mean Platelet Volume 7.5; Monocytes # (A) 0.5 k/uL (0-1.0); Monocytes % (A) 7 %; Neutrophils # (A) 4.4 k/uL (1.3-7.7); Neutrophils % (A) 65 %; RBC 4.49 m/uL (4.30-5.90); RDW 13.3 % (11.5-15.5); WBC 6.8 k/uL (3.8-10.6); WBC (Perox) 6.55
[2017-01-11 10:41] LABS: ALT 69 U/L (21-72); AST 106 U/L (17-59); Alkaline Phosphatase 62 U/L (38-126); Anion Gap 8 mmol/L; Blood Urea Nitrogen 15 mg/dL (9-20); Calcium 9.5 mg/dL (8.4-10.2); Carbon Dioxide 29 mmol/L (22-30); Chloride 101 mmol/L (98-107); Glucose 87 mg/dL (74-99); Non-African American GFR(MDRD) >60 (>60 ml/min/1.73 sqM); Potassium 4.4 mmol/L (3.5-5.1); Sodium 138 mmol/L (137-145); Total Bilirubin 1.7 mg/dL (0.2-1.3); Total Protein 6.4 g/dL (6.3-8.2)
--- NOTE | 2017-01-11 13:19 | P.PN ---
Progress Note - Text INTERVERAL HISTORY:Patient signed AMA form last night. Reports he thought he had to sign this to be released on Saturday. Patient states he wants to get back on his feet, working is a way to keep himself out of trouble. Says he applied to all temp agencies but told them he'd have to work the 2nd shift in order to keep his medical/mental health appts. Agreed to revoke the intent to termination hospitalization. MENTAL STATUS EXAM: Alert and oriented 3, fair groomed in street clothing. Good eye contact Speech low volume and normal rate and production, monotone. Coherent logical goal directed no LORE no FOI no delusional ideas of reference, no thought blocking insertion or thought withdrawal. Denies auditory or visual hallucinations. Mood dysphoric, affect constricted, congruent with mood Denies suicidal ideation, denies homicidal ideation. PLAN: Continue inpatient psychiatric hospitalization, for safety, continue suicide precautions. Continue current medications. Cough suppressant.
[2017-01-11] MEDS: ACETAMINOPHEN TAB 325 MG TAB PO PRN ×2 (16:03→21:22)
[2017-01-11] MEDS: traZODone HCL 50 MG TAB PO SCH (21:20)
[2017-01-11] MEDS: guaiFENesin-DM 100-10MG/5ML 10 ML CUP PO PRN (21:21)
[2017-01-12] MEDS: NICOTINE 21MG/24HR PATCH TRANSDERM SCH (08:58)
[2017-01-12] MEDS: CITALOPRAM HYDROBROMIDE 20 MG TAB PO SCH (08:58)
[2017-01-12] MEDS: GABAPENTIN 300 MG CAP PO SCH ×2 (08:58→15:46)
--- NOTE | 2017-01-12 10:30 | P.PN ---
Progress Note - Text Interval history: The patient is found in group he follows me to an interview room. He reports his mood is actually a little better today he is feeling less depressed. He reports he slept very well with the trazodone appetite is stable. He is been placed back on his Celexa. At length he discusses the challenges that he has had remaining sober from alcohol. He was recently in [place] for chemical dependency treatment. He has no questions or concerns regarding his psychotropic medication. He has Ativan available for any withdrawal symptoms. Vital signs are reviewed they're within normal limits. Mental status exam: The patient is alert he seated calmly eye contact is appropriate he seems to have a very fine amplitude tremor of his upper extremities. He states his mood is better he is reporting no acute suicidal ideation today no homicidal ideation. He is reporting no auditory or visual hallucinations no specific delusions. There is no evidence of psychosis. Speech is spontaneous fluent nonpressured he is verbose but easily directed in the session. He demonstrates no verbal or physical aggressiveness. He is oriented to person place and date. Plan: The patient will continue on his current psychotropic medication. He is encouraged to continue participating in the milieu. We will monitor him for safety. He is anticipating a discharge Saturday. He Is hoping to return to work.
[2017-01-12] MEDS: guaiFENesin-DM 100-10MG/5ML 10 ML CUP PO PRN (11:11)
[2017-01-12] MEDS: CLOTRIMAZOLE 1% CREAM 15 GM TUBE TOPICAL SCH (12:44)
[2017-01-12] MEDS ORDERED: traZODone HCL 50 MG TAB ONE (22:00)
[2017-01-12] MEDS ORDERED: GABAPENTIN 300 MG CAP ONE (22:00)
--- NOTE | 2017-01-13 08:27 | P.PN ---
Progress Note - Text Interval history: The patient is found in the hallway heading to breakfast. He reports that he slept well last night, appetite is stable. He continues to attend groups. He states his mood is stabilizing. He is hoping to be discharged tomorrow. He is future oriented and states it tomorrow he needs to go to the tem service to obtain employment, go to [facility], and then locate a [place] [facility] bed. He has no questions or concerns regarding his medications. Mental status exam: The patient is alert he is dressed in his own clothing eye contact is appropriate. Hygiene grooming adequate. He reports his mood is improving he denies having any suicidal or homicidal ideation intent or plan. There is no evidence of psychosis no evidence of hypomanic or manic symptoms. Thought process is linear insight and judgment is improving. He demonstrates no verbal or physical aggressiveness. Affect is constricted. Speech is fluent spontaneous nonpressured. Plan: The patient will continue on his current medications. Vital signs reviewed they're within normal limits. Clinically appears to be stabilizing and is future oriented. He is encouraged to continue participating in the milieu. We will continue to monitor for safety.
[2017-01-13] MEDS: CITALOPRAM HYDROBROMIDE 20 MG TAB PO SCH (09:00)
[2017-01-13] MEDS: NICOTINE 21MG/24HR PATCH TRANSDERM SCH (09:01)
[2017-01-13] MEDS: CLOTRIMAZOLE 1% CREAM 15 GM TUBE TOPICAL SCH ×3 (09:02→21:18)
[2017-01-13] MEDS: GABAPENTIN 300 MG CAP PO SCH ×4 (10:58→21:17)
--- NOTE | 2017-01-13 14:16 | P.PN ---
Subjective This is a 46-year-old male with no primary care physician. He has a medical history of depression, anxiety and high blood pressure, although has never been on medication for his high blood pressure. He reports he drank two fifths of liquor last night and sustained a fall, hitting his head on the concrete. He was then brought to the emergency department. He also expressed thoughts of suicide by jumping off a bridge. The patient is a long history of alcohol abuse. The patient complains of worsening depression and an increase in his alcohol consumption after his fiance in August. He reports he is homeless. And was fired from his job from his job a few months ago due to his alcohol abuse. Patient's UA was clear and toxicology showed benzodiazepines. 01/12: I was asked to reevaluate the patient by the staff at the mental health unit because of increased discoloration of the left big toe, patient does appear to have a significant mycotic infection for which we will recommend Penlac however this is not available as an inpatient subsequently we'll start the patient on antifungal cream. Objective - Vital Signs Vital signs: Vital Signs Temp 98.0 F 01/13/17 06:50 Pulse 71 01/13/17 06:50 Resp 18 01/13/17 06:50 BP 130/90 01/13/17 06:50 Pulse Ox 93 L 01/10/17 12:18 - Exam General appearance: Alert, in no acute distress, poorly groomed HEENT exam: Normocephalic, atraumatic, pupils equal round react to light, mucous membranes moist oropharynx is clear Neck exam: Supple, trachea midline, no lymphadenopathy, no tenderness, no thyromegaly Respiratory exam: Lungs sounds are clear to auscultation bilaterally, no wheezes , no rhonchi, no rales Cardiovascular exam: Normal S1 and S2, no S3 or S4. Regular rate and rhythm no murmurs rubs gallops or clicks Abdominal exam: Positive bowel sounds, soft, nontender, nondistended, no masses , no rebound, no organomegaly Extremities exam: No significant deformity or joint abnormality, no edema, peripheral pulses are intact, there is significant mycotic infection to the left big toenail, without any evidence of Onycholysis. Psychiatric exam: Normal affect, normal mood Neurologic exam: Cranial nerves II through XII are intact, strength and sensation symmetric, patient is alert oriented to person place and time - Labs CBC & Chem 7: 01/11/17 09:36 01/11/17 09:36 Assessment and Plan Plan: Assessment and Plan Plan: 1. Depression with suicidal ideation. Patient admitted to the mental health unit. Continue current plan of care. 2. Alcohol intoxication. Continue Ativan as ordered by psych. 3. Tobacco use. nicotine patch as ordered. 4. Onychomycosis. Start the patient on antifungal cream.
[2017-01-13] MEDS: traZODone HCL 50 MG TAB PO SCH ×2 (18:03→21:17)
[2017-01-14 06:41] VITALS: BP 141/85; PULSE 57; RESP 16; TEMP 97.9
[2017-01-14] MEDS: NICOTINE 21MG/24HR PATCH TRANSDERM SCH (09:17)
[2017-01-14] MEDS: CITALOPRAM HYDROBROMIDE 20 MG TAB PO SCH (09:18)
[2017-01-14] MEDS: GABAPENTIN 300 MG CAP PO SCH (09:19)
[2017-01-14] MEDS: CLOTRIMAZOLE 1% CREAM 15 GM TUBE TOPICAL SCH (09:19)
--- NOTE | 2017-01-14 09:57 | P.DS ---
Providers Date of admission: 01/10/17 10:16 Expected date of discharge: 01/14/17 Attending physician: Arline Sullivan MD Consults: 01/10/17 10:32 Consult Physician Routine Consulting Provider: Yvon Rowe Consult Reason/Comments: follow up H & P Do you want consulting provider notified?: Yes 01/11/17 21:16 Consult Physician Routine Consulting Provider: Yvon Rowe Consult Reason/Comments: numbness, swelling, tingling and loss of feeling to hever feet Do you want consulting provider notified?: Yes, Notify in am Primary care physician: Stated None - Discharge Diagnosis(es) (1) Suicidal ideation Current Visit: Yes Status: Resolved Hospital Course: Patient was admitted for suicidal ideation, jump off a bridge. Patient with long history of alcohol and opiate abuse, has not been using opiates for months. Patient reports his depression has been worse since his fiance in August. Patient is homeless and has been sleeping outside, was found and brought in for an admission, had hypothermia dehydration was admitted to medicine and was discharged from there. This admission however he reported suicidal ideation. Initially patient was irritable, we continued suicide precautions. Patient's mood improved over the few days that he was here. He now is hopeful, hoping to find a job. He plans on going to the care home. Wants to get his care at [facility]. Mental status exam: Alert and oriented 3, good eye contact fair groomed in street clothing. Speech normal volume and rate and production. Coherent logical goal directed thought process. No LORE no FOI no delusions no ideas of reference. No auditory or visual hallucinations. Memory intact, cognition average No suicidal ideation, no homicidal ideation. Insight partial, judgment grossly intact for treatment purposes DSM V ETOH Use, severe MDD Suicidal ideation, resolved Pertinent Studies: noen Procedures: none Patient Condition at Discharge: Stable Plan - Discharge Summary New Discharge Prescriptions: Citalopram Hydrobromide [CeleXA] 40 mg PO DAILY #30 tab Gabapentin [Neurontin] 300 mg PO TID #90 cap traZODone HCL [Desyrel] 150 mg PO HS #30 tab Discharge Medication List Citalopram Hydrobromide [CeleXA] 40 mg PO DAILY #30 tab 01/14/17 [Rx] Gabapentin [Neurontin] 300 mg PO TID #90 cap 01/14/17 [Rx] traZODone HCL [Desyrel] 150 mg PO HS #30 tab 01/14/17 [Rx] Follow up Appointment(s)/Referral(s): None,Stated [Primary Care Provider] - 1 Week
== END 2017-01-14 15:13 | disposition home or self-care (01) | DRG 881 ==
LOC: EC 05:56 → 3MHU 10:16
PROVIDERS: ADMIT Psychiatry & Neurology Addiction Medicine; ATTEND Psychiatry & Neurology Addiction Medicine
DX: F32.9 Major depressive disorder, single episode, unspecified (principal); R45.851 Suicidal ideations; I10 Essential (primary) hypertension; F10.10 Alcohol abuse, uncomplicated; F17.200 Nicotine dependence, unspecified, uncomplicated; Z59.0 Homelessness; Z79.899 Other long term (current) drug therapy; Z87.440 Personal history of urinary (tract) infections
CPT/HCPCS: 80053; 80306; 81003; 82075; 84443; 85025

== ENCOUNTER 2017-01-17 14:08 | Observation (INO) | payer OTHER ==
[2017-01-17 14:16] VITALS: RESP 20; TEMP 98.7
[2017-01-17] MEDS ORDERED: SODIUM CHLORIDE 0.9% 1,000 ML IV STA (14:59)
[2017-01-17] MEDS ORDERED: CLINDAMYCIN 600 MG in DEXTROSE 5% IN WATER 50 ML IVPB STA ×2 (15:29)
[2017-01-17 15:33] LABS: Basophils % (A) 0 %; CH 32.6; CHCM 33.7; Eosinophils # (A) 0.1 k/uL (0-0.7); Eosinophils % (A) 1 %; HCT 50.5 % (39.0-53.0); HDW 2.11; HGB 16.6 gm/dL (13.0-17.5); Luc # (Auto) 0.24; Luc % (Auto) 3; Lymphocytes # (A) 2.9 k/uL (1.0-4.8); Lymphocytes % (A) 34 %; MCHC 32.9 g/dL (31.0-37.0); MCV 97.2 fL (80.0-100.0); Mean Platelet Volume 6.6; Monocytes # (A) 0.3 k/uL (0-1.0); Monocytes % (A) 3 %; Neutrophils # (A) 5.2 k/uL (1.3-7.7); Neutrophils % (A) 60 %; RBC 5.19 m/uL (4.30-5.90); RDW 13.8 % (11.5-15.5); WBC 8.7 k/uL (3.8-10.6); WBC (Perox) 8.65
[2017-01-17 15:40] LABS: ALT 51 U/L (21-72); AST 31 U/L (17-59); Alkaline Phosphatase 67 U/L (38-126); Anion Gap 13 mmol/L; Blood Urea Nitrogen 11 mg/dL (9-20); Calcium 8.2 mg/dL (8.4-10.2); Carbon Dioxide 23 mmol/L (22-30); Chloride 110 mmol/L (98-107); Glucose 92 mg/dL (74-99); Non-African American GFR(MDRD) >60 (>60 ml/min/1.73 sqM); Potassium 4.3 mmol/L (3.5-5.1); Sodium 146 mmol/L (137-145); Total Bilirubin 0.2 mg/dL (0.2-1.3); Total Protein 5.9 g/dL (6.3-8.2)
--- NOTE | 2017-01-17 15:46 | ED ---
General Adult HPI - General Chief complaint: Alcohol Stated complaint: ETOH Time Seen by Provider: 01/17/17 14:24 Source: EMS, RN notes reviewed Mode of arrival: EMS Limitations: altered mental status - History of Present Illness Initial comments: Patient for 46-year-old male who was brought in by EMS for intoxication. Patient does admit that he was drinking earlier today. Patient denies any complaints here in the emergency room. Patient does have some swelling and redness to the left hand. Patient denies any pain. Denies any injury. Patient denies any other complaints here the emergency room. He does admit to nursing staff that he did donate plasma 2 days. Patient denies any recent fever , chills, shortness of breath, chest pain, back pain, abdominal pain, nausea or vomiting, numbness or tingling, dysuria or hematuria, constipation or diarrhea, headaches or visual changes, or any other complaints. - Related Data Home Medications Medication Instructions Recorded Confirmed Citalopram Hydrobromide 40 mg PO DAILY 01/17/17 01/17/17 traZODone HCL 150 mg PO HS 01/17/17 01/17/17 Previous Rx's Medication Instructions Recorded Gabapentin [Neurontin] 300 mg PO TID #90 cap 01/14/17 Allergies Allergy/AdvReac Type Severity Reaction Status Date / Time No Known Allergies Allergy Verified 01/17/17 14:17 Review of Systems ROS Statement: Those systems with pertinent positive or pertinent negative responses have been documented in the HPI. ROS Other: All systems not noted in ROS Statement are negative. Past Medical History Past Medical History: GERD/Reflux, GI Bleed, Hypertension Additional Past Medical History / Comment(s): Alcoholic gastritis; Alcohol withdrawal, 2015 upper GI bleed. History of Any Multi-Drug Resistant Organisms: Unobtainable Past Surgical History: No Surgical Hx Reported Additional Past Surgical History / Comment(s): Past surgical history documents that pt has never had any surgical procedures done. Past Anesthesia/Blood Transfusion Reactions: No Reported Reaction Additional Past Anesthesia/Blood Transfusion Reaction / Comment(s): Pt has never had surgery or blood transfusion per past medical records. Past Psychological History: Anxiety, Depression, Panic Disorder Additional Psychological History / Comment(s): Pt previously resided with his significant other-unknown at this time where he currently resides. PMH indicated he is independent. He uses no assistive devices. He does not drive- he uses the bus to get places. He has a mood disorder. He was seen in [facility] ER 02/21/15 with overdose-was seen by psychiatric services once he was sober and deemed not a suicidal risk. Smoking Status: Current every day smoker Past Alcohol Use History: Abuse, Daily Additional Past Alcohol Use History / Comment(s): [facility] documented that he is a smoker and he started smoking at age [age]yrs. He is a ppd smoker. Also indicated daily drinker. Past Drug Use History: None Reported, Marijuana - Past Family History Sister(s) Family Medical History: No Reported History Additional Family Medical History / Comment(s): [facility] indicates patient has 3 sisters with no major medical problems. Son(s) Family Medical History: No Reported History Additional Family Medical History / Comment(s): [facility] indicates that patient has one son with no major medical problems. Father Family Medical History: No Reported History Additional Family Medical History / Comment(s): [facility] indicated that father is living and that pt does not believe he has any health problem. Mother Family Medical History: No Reported History Additional Family Medical History / Comment(s): [facility] indicates that mother is living and pt did not believe she has any health problems other than she is a smoker. General Exam - General Exam Comments Initial Comments: General: The patient is awake and alert, in no distress, and does not appear acutely ill. Eye: Pupils are equal, round and reactive to light, extra-ocular movements are intact. No nystagmus. There is normal conjunctiva bilaterally. No signs of icterus. Ears, nose, mouth and throat: There are moist mucous membranes and no oral lesions. Neck: The neck is supple, there is no tenderness or JVD. Cardiovascular: There is a regular rate and rhythm. No murmur, rub or gallop is appreciated. Respiratory: Lungs are clear to auscultation, respirations are non-labored, breath sounds are equal. No wheezes, stridor, rales, or rhonchi. Gastrointestinal: Soft, non-distended, non-tender abdomen without masses or organomegaly noted. There is no rebound or guarding present. No CVA tenderness. Bowel sounds are unremarkable. Musculoskeletal: Normal ROM, no tenderness. Strength 5/5. Sensation intact. Pulses equal bilaterally 2+. Neurological: A&O x 3. CN II-XII intact, There are no obvious motor or sensory deficits. Coordination appears grossly intact. Speech is normal. Skin: does have moderate swelling down to the left hand with increased redness. Small blister area over the port posterior aspect measures approximate 1 cm. No open wounds. Patient did have a dressing applied to the left AC area which appear to be wrapped tightly around has been removed by nursing staff. Psychiatric: Cooperative, appropriate mood & affect, normal judgment. Limitations: altered mental status Course Vital Signs 01/17/17 01/17/17 14:11 16:00 Temperature 98.7 F Pulse Rate 90 88 Respiratory 20 20 Rate Blood Pressure 124/74 132/78 O2 Sat by Pulse 96 96 Oximetry Medical Decision Making - Medical Decision Making Patient reexamined sometime showing no signs of distress resting comfortably in the stretcher. Patient denies any complaints here in the emergency room. Does appear to have cellulitis to the left hand. Wshe started on vancomycin here in the emergency room. Patient's alcohol level greater than 400 will be admitted to the hospital placed CIWA protocol. patient is aware the plan states understanding and is in agreement. - Lab Data Result diagrams: 01/17/17 15:15 01/17/17 15:15 Lab Results 01/17/17 01/17/17 Range/Units 15:15 15:15 WBC 8.7 (3.8-10.6) k/uL RBC 5.19 (4.30-5.90) m/uL Hgb 16.6 (13.0-17.5) gm/dL Hct 50.5 (39.0-53.0) % MCV 97.2 (80.0-100.0) fL MCH 32.0 (25.0-35.0) pg MCHC 32.9 (31.0-37.0) g/dL RDW 13.8 (11.5-15.5) % Plt Count 259 (150-450) k/uL Neutrophils % 60 % Lymphocytes % 34 % Monocytes % 3 % Eosinophils % 1 % Basophils % 0 % Neutrophils # 5.2 (1.3-7.7) k/uL Lymphocytes # 2.9 (1.0-4.8) k/uL Monocytes # 0.3 (0-1.0) k/uL Eosinophils # 0.1 (0-0.7) k/uL Basophils # 0.0 (0-0.2) k/uL Sodium 146 H (137-145) mmol/L Potassium 4.3 (3.5-5.1) mmol/L Chloride 110 H (98-107) mmol/L Carbon Dioxide 23 (22-30) mmol/L Anion Gap 13 mmol/L BUN 11 (9-20) mg/dL Creatinine 0.80 (0.66-1.25) mg/dL Est GFR (MDRD) Af Amer >60 (>60 ml/min/1.73 sqM) Est GFR (MDRD) Non-Af >60 (>60 ml/min/1.73 sqM) Glucose 92 (74-99) mg/dL Calcium 8.2 L (8.4-10.2) mg/dL Total Bilirubin 0.2 (0.2-1.3) mg/dL AST 31 (17-59) U/L ALT 51 (21-72) U/L Alkaline Phosphatase 67 (38-126) U/L Total Protein 5.9 L (6.3-8.2) g/dL Albumin 3.5 (3.5-5.0) g/dL Lipase 73 (23-300) U/L Serum Alcohol 432 mg/dL Disposition Clinical Impression: Alcohol intoxication, Cellulitis of hand Disposition: ADMITTED IP TO THIS HOSP Condition: Stable Referrals: None,Stated [Primary Care Provider] - 1-2 days Time of Disposition: 16:24
[2017-01-17 15:58] LABS: Alcohol 432 mg/dL
[2017-01-17 16:01] VITALS: BP 132/78; PULSE 88
[2017-01-17] MEDS ORDERED: ACETAMINOPHEN TAB 325 MG TAB PO PRN (16:26)
[2017-01-17] MEDS ORDERED: NALOXONE 0.4 MG/ML 1 ML VIAL IV PRN (16:26)
[2017-01-17] MEDS ORDERED: SODIUM CHLORIDE 0.9% 1,000 ML IV ONE (16:26)
[2017-01-17] MEDS ORDERED: LORazepam 2 MG/ML SYRINGE IV PRN ×3 (16:28)
--- NOTE | 2017-01-17 16:29 | XR ---
EXAMINATION TYPE: XR hand complete LT DATE OF EXAM: 01/17/2017 4:20 PM CLINICAL HISTORY: Left hand swelling TECHNIQUE: Frontal, lateral and oblique images of the left hand are obtained. COMPARISON: None. FINDINGS: There is no acute fracture/dislocation evident in the left hand. The joint spaces in the l eft hand appear within normal limits. Mild diffuse soft tissue swelling is noted. IMPRESSION: There is no acute fracture or dislocation in the left hand.
--- NOTE | 2017-01-17 16:48 | ED ---
Medical Decision Making - Lab Data Result diagrams: 01/17/17 15:15 01/17/17 15:15 Lab Results 01/17/17 01/17/17 Range/Units 15:15 15:15 WBC 8.7 (3.8-10.6) k/uL RBC 5.19 (4.30-5.90) m/uL Hgb 16.6 (13.0-17.5) gm/dL Hct 50.5 (39.0-53.0) % MCV 97.2 (80.0-100.0) fL MCH 32.0 (25.0-35.0) pg MCHC 32.9 (31.0-37.0) g/dL RDW 13.8 (11.5-15.5) % Plt Count 259 (150-450) k/uL Neutrophils % 60 % Lymphocytes % 34 % Monocytes % 3 % Eosinophils % 1 % Basophils % 0 % Neutrophils # 5.2 (1.3-7.7) k/uL Lymphocytes # 2.9 (1.0-4.8) k/uL Monocytes # 0.3 (0-1.0) k/uL Eosinophils # 0.1 (0-0.7) k/uL Basophils # 0.0 (0-0.2) k/uL Sodium 146 H (137-145) mmol/L Potassium 4.3 (3.5-5.1) mmol/L Chloride 110 H (98-107) mmol/L Carbon Dioxide 23 (22-30) mmol/L Anion Gap 13 mmol/L BUN 11 (9-20) mg/dL Creatinine 0.80 (0.66-1.25) mg/dL Est GFR (MDRD) Af Amer >60 (>60 ml/min/1.73 sqM) Est GFR (MDRD) Non-Af >60 (>60 ml/min/1.73 sqM) Glucose 92 (74-99) mg/dL Calcium 8.2 L (8.4-10.2) mg/dL Total Bilirubin 0.2 (0.2-1.3) mg/dL AST 31 (17-59) U/L ALT 51 (21-72) U/L Alkaline Phosphatase 67 (38-126) U/L Total Protein 5.9 L (6.3-8.2) g/dL Albumin 3.5 (3.5-5.0) g/dL Lipase 73 (23-300) U/L Serum Alcohol 432 mg/dL Disposition Clinical Impression: Alcohol intoxication, Cellulitis of hand Disposition: ADMITTED IP TO THIS [facility] Condition: Stable Referrals: None,Stated [Primary Care Provider] - 1-2 days Procedures - Restraint - Face to Face Restraint Occurrence 1 Patient's Immediate Situation: Endangers self safety, Endangers others' safety, Endangers staff safety Patient's Reaction to the Intervention: Uncooperative Patient's Medical & Behavioral Condition: Awake, Alert Need to Continue or Terminate Restraint or Seclusion: Continue Face to Face Eval of Restraint Date: 01/17/17 Face to Face Eval of Restraint Time: 16:47
[2017-01-17] MEDS ORDERED: NICOTINE 21MG/24HR PATCH TRANSDERM STA (16:49)
[2017-01-17] MEDS ORDERED: THIAMINE 100 MG TAB PO SCH (17:00)
[2017-01-18] MEDS ORDERED: CLINDAMYCIN 300 MG in DEXTROSE 5% IN WATER 50 ML IVPB SCH ×2
--- NOTE | 2017-01-25 22:16 | HP ---
H&P AND DISCHARGE SUMMARY DATE OF SERVICE: 01/17/2017. Patient left AMA before patient was evaluated by my service.
== END 2017-01-18 03:00 | disposition left against medical advice (07) ==
LOC: EC 14:08 → INTOOBSV 16:22 → 4MS4W 16:22
PROVIDERS: ADMIT Internal Medicine; ATTEND Internal Medicine
DX: F10.129 Alcohol abuse with intoxication, unspecified (principal); L03.114 Cellulitis of left upper limb; K21.9 Gastro-esophageal reflux disease without esophagitis; I10 Essential (primary) hypertension; F41.9 Anxiety disorder, unspecified; F32.9 Major depressive disorder, single episode, unspecified; F41.0 Panic disorder [episodic paroxysmal anxiety]; F17.200 Nicotine dependence, unspecified, uncomplicated; Z79.899 Other long term (current) drug therapy; Z53.21 Procedure and treatment not carried out due to patient leaving prior to being seen by health care provider
CPT/HCPCS: 96365; 96361; 99285; 36415; 80053; 83690; 85025; 87040; 80320; 73130; G0378 ×2; S4990

== ENCOUNTER 2017-01-20 04:51 | Emergency (ER) | payer OTHER ==
[2017-01-20] MEDS ORDERED: IBUPROFEN 600 MG TAB PO STA (06:25)
[2017-01-20] MEDS ORDERED: HYDROcodone/APAP 5-325MG 1 EACH TAB PO STA (06:25)
--- NOTE | 2017-01-20 07:00 | ED ---
Extremity Problem HPI - General Chief complaint: Extremity Problem,Nontraumatic Stated complaint: No sleep Time Seen by Provider: 01/20/17 05:38 Source: patient Mode of arrival: ambulatory Limitations: no limitations - Related Data Home Medications Medication Instructions Recorded Confirmed Citalopram Hydrobromide 40 mg PO DAILY 01/17/17 01/20/17 traZODone HCL 150 mg PO HS 01/17/17 01/20/17 Previous Rx's Medication Instructions Recorded Gabapentin [Neurontin] 300 mg PO TID #90 cap 01/14/17 Gabapentin 600 mg PO TID #60 tab 01/20/17 Thiamine [Vitamin B-1] 100 mg PO DAILY #30 tablet 01/20/17 Allergies Allergy/AdvReac Type Severity Reaction Status Date / Time No Known Allergies Allergy Verified 01/20/17 04:55 Review of Systems ROS Statement: Those systems with pertinent positive or pertinent negative responses have been documented in the HPI. ROS Other: All systems not noted in ROS Statement are negative. Past Medical History Past Medical History: GERD/Reflux, GI Bleed, Hypertension Additional Past Medical History / Comment(s): Alcoholic gastritis; Alcohol withdrawal, 2015 upper GI bleed. lt hand cellulitis History of Any Multi-Drug Resistant Organisms: Unobtainable Past Surgical History: No Surgical Hx Reported Additional Past Surgical History / Comment(s): Past surgical history documents that pt has never had any surgical procedures done. Past Anesthesia/Blood Transfusion Reactions: No Reported Reaction Additional Past Anesthesia/Blood Transfusion Reaction / Comment(s): Pt has never had surgery or blood transfusion per past medical records. Past Psychological History: Anxiety, Depression, Panic Disorder Additional Psychological History / Comment(s): Pt previously resided with his significant other-unknown at this time where he currently resides. PMH indicated he is independent. He uses no assistive devices. He does not drive- he uses the bus to get places. He has a mood disorder. He was seen in [facility] ER 02/21/15 with overdose-was seen by psychiatric services once he was sober and deemed not a suicidal risk. Smoking Status: Current every day smoker Past Alcohol Use History: Abuse, Daily Additional Past Alcohol Use History / Comment(s): [facility] documented that he is a smoker and he started smoking at age [age]yrs. He is a ppd smoker. Also indicated daily drinker. Past Drug Use History: None Reported, Marijuana - Past Family History Sister(s) Family Medical History: No Reported History Additional Family Medical History / Comment(s): [facility]H indicates patient has 3 sisters with no major medical problems. Son(s) Family Medical History: No Reported History Additional Family Medical History / Comment(s): [facility] indicates that patient has one son with no major medical problems. Father Family Medical History: No Reported History Additional Family Medical History / Comment(s): [facility] indicated that father is living and that pt does not believe he has any health problem. Mother Family Medical History: No Reported History Additional Family Medical History / Comment(s): [facility] indicates that mother is living and pt did not believe she has any health problems other than she is a smoker. General Exam Limitations: no limitations Course Vital Signs 01/20/17 04:53 Temperature 98.3 F Pulse Rate 146 H Respiratory 18 Rate Blood Pressure 135/93 O2 Sat by Pulse 98 Oximetry Disposition Clinical Impression: Neuropathy Disposition: HOME SELF-CARE Condition: Fair Instructions: Peripheral Neuropathy (ED) Prescriptions: Gabapentin 600 mg PO TID #60 tab Thiamine [Vitamin B-1] 100 mg PO DAILY #30 tablet Referrals: None,Stated [Primary Care Provider] - 1-2 days
[2017-01-20] MEDS ORDERED: HYDROmorphone 1 MG/ML 1 ML SYRINGE IM STA (07:33)
[2017-01-20 07:52] VITALS: BP 151/86; PULSE 92; RESP 16; TEMP 98.2
[2017-01-20] MEDS ORDERED: THIAMINE 100 MG TAB PO SCH (12:00)
== END 2017-01-20 08:05 | disposition home or self-care (01) ==
LOC: EC 04:51
DX: G62.9 Polyneuropathy, unspecified (principal); F32.9 Major depressive disorder, single episode, unspecified; F41.0 Panic disorder [episodic paroxysmal anxiety]; F17.200 Nicotine dependence, unspecified, uncomplicated; Z79.899 Other long term (current) drug therapy
CPT/HCPCS: 99283; 96372; J1170

== ENCOUNTER 2017-01-21 02:16 | Inpatient (IN) | payer MEDICAID, OTHER ==
--- NOTE | 2017-01-21 02:28 | ED ---
General Adult HPI - General Stated complaint: Suicidal Time Seen by Provider: 01/21/17 02:20 Source: RN notes reviewed - History of Present Illness Initial comments: This is a 46-year-old male who presents emergency Department stating that he is an alcoholic. Patient states he is unable to quit on his own any has become suicidal because he can't quit. Patient states last drink was at noon today and he states he has run out of money so therefore his run out of up or tenderness to bimanual alcohol and because of this he is going through withdrawal and during this difficult time he has become suicidal. Patient denies any drug abuse patient denies any ingestion of any pills. Patient denies any singular plan. Patient denies any physical complaints today. Patient denies any problems breathing patient denies chest pain. Patient denies abdominal pain patient denies nausea vomiting diarrhea. Patient denies any urinary symptoms. - Related Data Home Medications Medication Instructions Recorded Confirmed Citalopram Hydrobromide 40 mg PO DAILY 01/17/17 01/21/17 traZODone HCL 150 mg PO HS 01/17/17 01/21/17 Previous Rx's Medication Instructions Recorded Gabapentin 600 mg PO TID #60 tab 01/20/17 Thiamine [Vitamin B-1] 100 mg PO DAILY #30 tablet 01/20/17 Allergies Allergy/AdvReac Type Severity Reaction Status Date / Time No Known Allergies Allergy Verified 01/21/17 02:30 Review of Systems ROS Statement: Those systems with pertinent positive or pertinent negative responses have been documented in the HPI. ROS Other: All systems not noted in ROS Statement are negative. Past Medical History Past Medical History: GERD/Reflux, GI Bleed, Hypertension Additional Past Medical History / Comment(s): Alcoholic gastritis; Alcohol withdrawal, 2015 upper GI bleed. lt hand cellulitis History of Any Multi-Drug Resistant Organisms: Unobtainable Past Surgical History: No Surgical Hx Reported Additional Past Surgical History / Comment(s): Past surgical history documents that pt has never had any surgical procedures done. Past Anesthesia/Blood Transfusion Reactions: No Reported Reaction Additional Past Anesthesia/Blood Transfusion Reaction / Comment(s): Pt has never had surgery or blood transfusion per past medical records. Past Psychological History: Anxiety, Depression, Panic Disorder Additional Psychological History / Comment(s): Pt previously resided with his significant other-unknown at this time where he currently resides. PMH indicated he is independent. He uses no assistive devices. He does not drive- he uses the bus to get places. He has a mood disorder. He was seen in [facility] ER 02/21/15 with overdose-was seen by psychiatric services once he was sober and deemed not a suicidal risk. Smoking Status: Current every day smoker Past Alcohol Use History: Abuse, Daily Additional Past Alcohol Use History / Comment(s): [facility] documented that he is a smoker and he started smoking at age [age]yrs. He is a ppd smoker. Also indicated daily drinker. Past Drug Use History: None Reported, Marijuana - Past Family History Sister(s) Family Medical History: No Reported History Additional Family Medical History / Comment(s): [facility] indicates patient has 3 sisters with no major medical problems. Son(s) Family Medical History: No Reported History Additional Family Medical History / Comment(s): [facility] indicates that patient has one son with no major medical problems. Father Family Medical History: No Reported History Additional Family Medical History / Comment(s): [facility] indicated that father is living and that pt does not believe he has any health problem. Mother Family Medical History: No Reported History Additional Family Medical History / Comment(s): [facility] indicates that mother is living and pt did not believe she has any health problems other than she is a smoker. General Exam - General Exam Comments Initial Comments: GENERAL: Patient is well-developed and well-nourished. Patient is nontoxic and well- hydrated and is in mild distress. Patient is trembling typical of withdrawal. ENT: Neck is soft and supple. No significant lymphadenopathy is noted. Oropharynx is clear. Moist mucous membranes. Neck has full range of motion without eliciting any pain. EYES: The sclera were anicteric and conjunctiva were pink and moist. Extraocular movements were intact and pupils were equal round and reactive to light. Eyelids were unremarkable. PULMONARY: Unlabored respirations. Good breath sounds bilaterally. No audible rales rhonchi or wheezing was noted. CARDIOVASCULAR: There is a regular rate and rhythm without any murmurs gallops or rubs. ABDOMEN: Soft and nontender with normal bowel sounds. No palpable organomegaly was noted. There is no palpable pulsatile mass. SKIN: Skin is clear with no lesions or rashes and otherwise unremarkable. NEUROLOGIC: Patient is alert and oriented x3. Cranial nerves II through XII are grossly intact. Motor and sensory are also intact. Normal speech, volume and content. Symmetrical smile. MUSCULOSKELETAL: Normal extremities with adequate strength and full range of motion. No lower extremity swelling or edema. No calf tenderness. LYMPHATICS: No significant lymphadenopathy is noted PSYCHIATRIC: Normal psychiatric evaluation. Patient seems moderately anxious Course Vital Signs 01/21/17 01/21/17 02:23 04:08 Temperature 100.1 F H 97.5 F L Pulse Rate 136 H 82 Respiratory 18 18 Rate Blood Pressure 153/100 136/87 O2 Sat by Pulse 95 96 Oximetry Medical Decision Making - Lab Data Result diagrams: 01/21/17 02:42 01/21/17 02:42 Lab Results 01/21/17 01/21/17 01/21/17 Range/Units 02:42 02:42 02:42 WBC 11.5 H (3.8-10.6) k/uL RBC 5.09 (4.30-5.90) m/uL Hgb 16.3 (13.0-17.5) gm/dL Hct 49.2 (39.0-53.0) % MCV 96.6 (80.0-100.0) fL MCH 32.0 (25.0-35.0) pg MCHC 33.1 (31.0-37.0) g/dL RDW 14.3 (11.5-15.5) % Plt Count 309 (150-450) k/uL Neutrophils % 74 % Lymphocytes % 18 % Monocytes % 7 % Eosinophils % 1 % Basophils % 0 % Neutrophils # 8.5 H (1.3-7.7) k/uL Lymphocytes # 2.0 (1.0-4.8) k/uL Monocytes # 0.8 (0-1.0) k/uL Eosinophils # 0.1 (0-0.7) k/uL Basophils # 0.0 (0-0.2) k/uL Sodium 136 L (137-145) mmol/L Potassium 3.8 (3.5-5.1) mmol/L Chloride 101 (98-107) mmol/L Carbon Dioxide 24 (22-30) mmol/L Anion Gap 11 mmol/L BUN 7 L (9-20) mg/dL Creatinine 0.80 (0.66-1.25) mg/dL Est GFR (MDRD) Af Amer >60 (>60 ml/min/1.73 sqM) Est GFR (MDRD) Non-Af >60 (>60 ml/min/1.73 sqM) Glucose 116 H (74-99) mg/dL Calcium 9.5 (8.4-10.2) mg/dL Magnesium 1.6 (1.6-2.3) mg/dL Total Bilirubin 1.5 H (0.2-1.3) mg/dL AST 82 H (17-59) U/L ALT 86 H (21-72) U/L Alkaline Phosphatase 80 (38-126) U/L Total Protein 6.7 (6.3-8.2) g/dL Albumin 4.2 (3.5-5.0) g/dL Urine Color Light Yellow Urine Appearance Clear (Clear) Urine pH 7.5 (5.0-8.0) Ur Specific [place] 1.002 (1.001-1.035) Urine Protein Negative (Negative) Urine Glucose (UA) Negative (Negative) Urine Ketones 1+ H (Negative) Urine Blood Negative (Negative) Urine Nitrite Negative (Negative) Urine Bilirubin Negative (Negative) Urine Urobilinogen <2.0 (<2.0) mg/dL Ur Leukocyte Esterase Negative (Negative) Urine Opiates Screen Detected H (NotDetected) Ur Oxycodone Screen Not Detected (NotDetected) Urine Methadone Screen Not Detected (NotDetected) Ur Propoxyphene Screen Not Detected (NotDetected) Ur Barbiturates Screen Not Detected (NotDetected) U Tricyclic Antidepress Not Detected (NotDetected) Ur Phencyclidine Scrn Not Detected (NotDetected) Ur Amphetamines Screen Not Detected (NotDetected) U Methamphetamines Scrn Not Detected (NotDetected) U Benzodiazepines Scrn Not Detected (NotDetected) Urine Cocaine Screen Not Detected (NotDetected) U Marijuana (THC) Screen Not Detected (NotDetected) Disposition Clinical Impression: Suicidal ideation Disposition: ADMITTED IP TO THIS [facility] Time of Disposition: 05:34
[2017-01-21] MEDS ORDERED: SODIUM CHLORIDE 0.9% 1,000 ML IV ONE (02:38)
[2017-01-21] MEDS ORDERED: ACETAMINOPHEN TAB 500 MG TAB PO STA (02:38)
[2017-01-21 02:53] LABS: Basophils % (A) 0 %; CH 33.1; CHCM 34.4; Eosinophils # (A) 0.1 k/uL (0-0.7); Eosinophils % (A) 1 %; HCT 49.2 % (39.0-53.0); HDW 2.01; HGB 16.3 gm/dL (13.0-17.5); Luc # (Auto) 0.11; Luc % (Auto) 1; Lymphocytes % (A) 18 %; MCHC 33.1 g/dL (31.0-37.0); MCV 96.6 fL (80.0-100.0); Mean Platelet Volume 6.9; Monocytes # (A) 0.8 k/uL (0-1.0); Monocytes % (A) 7 %; Neutrophils # (A) 8.5 k/uL (1.3-7.7); Neutrophils % (A) 74 %; RBC 5.09 m/uL (4.30-5.90); RDW 14.3 % (11.5-15.5); WBC 11.5 k/uL (3.8-10.6); WBC (Perox) 11.65
[2017-01-21 03:10] LABS: ALT 86 U/L (21-72); AST 82 U/L (17-59); Alkaline Phosphatase 80 U/L (38-126); Anion Gap 11 mmol/L; Blood Urea Nitrogen 7 mg/dL (9-20); Calcium 9.5 mg/dL (8.4-10.2); Carbon Dioxide 24 mmol/L (22-30); Chloride 101 mmol/L (98-107); Glucose 116 mg/dL (74-99); Magnesium 1.6 mg/dL (1.6-2.3); Non-African American GFR(MDRD) >60 (>60 ml/min/1.73 sqM); Potassium 3.8 mmol/L (3.5-5.1); Sodium 136 mmol/L (137-145); Total Bilirubin 1.5 mg/dL (0.2-1.3); Total Protein 6.7 g/dL (6.3-8.2)
--- NOTE | 2017-01-21 03:31 | XR ---
EXAM: XR Chest, 1 View CLINICAL HISTORY: Reason: Pain TECHNIQUE: Frontal view of the chest. COMPARISON: 01/09/17. FINDINGS: Lungs: Unremarkable. No consolidation. Pleural space: Unremarkable. No pneumothorax. Heart: Unremarkable. No cardiomegaly. Mediastinum: Unremarkable. Bones/joints: Bilateral lower rib fractures are again noted. IMPRESSION: No acute findings or substantial change
[2017-01-21] MEDS ORDERED: LORazepam 2 MG/ML SYRINGE IV STA (03:57)
[2017-01-21 04:01] LABS: Appearance,Urine Clear (Clear); Bilirubin,Urine Negative (Negative); Glucose,Urine (UA) Negative (Negative); Ketones,Urine 1+ (Negative); Leukocyte Esterase,Urine Negative (Negative); Nitrite,Urine Negative (Negative); PH, Urine 7.5 (5.0-8.0); Protein,Urine Negative (Negative); Specific Gravity,Urine 1.002 (1.001-1.035); UA Billing (MACRO vs. MICRO) CHEM; Urobilinogen,Urine <2.0 mg/dL (<2.0)
[2017-01-21] MEDS ORDERED: ZIPRASIDONE 20 MG VIAL IM PRN (05:47)
[2017-01-21] MEDS ORDERED: MAGNESIUM HYDROXIDE 2,400 MG/10 ML CUP PO PRN (05:47)
[2017-01-21] MEDS ORDERED: MAG HYDROX/AL HYDROX/SIMETH 30 ML CUP PO PRN (05:47)
[2017-01-21 06:02] VITALS: BMI 22.1
[2017-01-21] MEDS: NICOTINE 21MG/24HR PATCH TRANSDERM SCH (09:48)
[2017-01-21] MEDS: LORazepam 1 MG TAB PO PRN ×2 (09:49→20:45)
--- NOTE | 2017-01-21 10:32 | P.HP ---
Psychiatric H&P - . H&P Date: 01/21/17 History & Physical: DATE OF SERVICE: [01/21/2017] IDENTIFYING DATA: This patient is a 46-year-old single male who was admitted to the mental health unit through ER. . HISTORY OF PRESENT ILLNESS: Patient says he was out of the hospital for a few hours and began to feel depressed and then thoughts of his sridevi came back to him, went to [employer], drank a 5th + couple of beers, then woke up and did it all over again. Came to hospital because his feet were hurting and received a higher dose of neurotin came the following day due to suicidal ideation, jumping off bridge, stepping in front of moving car. Cannot say what stops him from acting on those thoughts. The patient presents with My sridevi and I have not gotten over it. Pt reports he wanders around drinking, came in and left, then fell and hit head. States he used to work at [employer], did whatever they needed, for 4 years. Homeless. Was at [facility] but could not tolerate the crowd. Says he is disturbed by the background noise, cannot go to large grocery stores, or big box, for at least 8-10 years after his depression started. Says he has depression since his late teens. Says he can go without etoh, longest period of sobriety 1 year. Reports he is depressed, some thoughts of suicide, "I chicken out", but thought about jumping off a bridge. PAST PSYCHIATRIC HISTORY: Reports 4 admission, 4 here and 1 in [place]. Most recent last week with discharge on Saturday. Reports he made a half-hearted attempt at cutting wrists, no treatment needed. Reports celexa has been helpful, and gabapentin. Sees Yassine at [facility] PAST MEDICAL HISTORY: GI bleed, gastritis, Hx of rib fractures, hx of UTI, etoh neuropathy ALLERGIES: No known drug allergies. CHEMICAL DEPENDENCY HISTORY: Began drinking in late teens, etoh and cannabis, it became a problem in his late 20s. No IVDU. Says he is not interested in using anything.. Can't go to rehab due to the crowds. FAMILY PSYCHIATRIC HISTORY: Denies. FAMILY CHEMICAL DEPENDENCY HISTORY:Denies. LEGAL HISTORY: Denies current problems. 2 DUIs in past.. SOCIAL HISTORY: Reports his childhood was good, parents when he was 17- 18, spent time with his grandparents, rarely speaks to his mother, father raised him and speaks every few weeks. Denies physical or sexual abuse. Academically average, GED. No service. Worked all over [place], but wanted to be in [place]. MENTAL STATUS EXAM: Patient alert and oriented 3, poor eye contact, poorly groomed in hospital attire. Speech low volume, rate and decreased production. Coherent, logical and circumstantial thought process. No LORE, no FOI. No TB/TW/ TI Denied auditory and visual hallucinations. Denied paranoid ideation, delusions or IOR. Memory impaired Cognition average Mood dysphoric, affect constricted, congruent with mood. Denies suicidal ideation, denies homicidal ideation. Insight none; Judgment grossly intact for treatment purposes . STRENGTHS: good worker. WEAKNESSES: poor coping. IMPRESSIONS: 46 year old with roughly 20 year history of problematic drinking that by his report has gotten worse after the of his fiancee in August. Discharged 1 week ago, never even attempted to go to intermediate, went to [facility] w/i hours of discharge. Reports blackout and no recollection of going into store. Cannot recall when he became suicidal or why he came to ER or what stopped him from acting on his SI. Symptoms are similiar to last admission, dysphoria, anhedonia, worthlessness, hopeless, helpless, suicidal. Patient has been in and out of ER and medical floors over the past few months. No psychosis No history of andrea, hypomania. +Suicide, no homicidal ideation. +Suicidal ideation ETOH Depenendence, severe (ETOH Use, severe) ETOH Intoxication ETOH Withdrawal Depression unspecified vs etoh induced depression PLAN: . Patient requires inpatient psychiatric stabilization and for safety. CIWA to prevent DTs, lorazepam as needed Suicidal checks for safety Patient cannot identify anything he wants to achieve with this hospital stay but verbalizes wish to be better. Continue his outpatient medications. Milieu therapy, needs substance abuse treatment. Consider naltrexone Consider [facility] Consider 1/2-3/4 transitional housing Allergies Allergy/AdvReac Type Severity Reaction Status Date / Time No Known Allergies Allergy Verified 01/21/17 07:29 Vital Signs Temp 97.2 F L 01/21/17 05:46 Pulse 89 01/21/17 05:46 Resp 22 01/21/17 05:46 BP 133/87 01/21/17 05:46 Pulse Ox 96 01/21/17 04:08 Intake & Output 01/20/17 01/21/17 01/21/17 18:59 06:59 18:59 Weight 69.8 kg Laboratory Last Values WBC 11.5 k/uL (3.8-10.6) H 01/21/17 02:42 RBC 5.09 m/uL (4.30-5.90) 01/21/17 02:42 Hgb 16.3 gm/dL (13.0-17.5) 01/21/17 02:42 Hct 49.2 % (39.0-53.0) 01/21/17 02:42 MCV 96.6 fL (80.0-100.0) 01/21/17 02:42 MCH 32.0 pg (25.0-35.0) 01/21/17 02:42 MCHC 33.1 g/dL (31.0-37.0) 01/21/17 02:42 RDW 14.3 % (11.5-15.5) 01/21/17 02:42 Plt Count 309 k/uL (150-450) 01/21/17 02:42 Neutrophils % 74 % 01/21/17 02:42 Lymphocytes % 18 % 01/21/17 02:42 Monocytes % 7 % 01/21/17 02:42 Eosinophils % 1 % 01/21/17 02:42 Basophils % 0 % 01/21/17 02:42 Neutrophils # 8.5 k/uL (1.3-7.7) H 01/21/17 02:42 Lymphocytes # 2.0 k/uL (1.0-4.8) 01/21/17 02:42 Monocytes # 0.8 k/uL (0-1.0) 01/21/17 02:42 Eosinophils # 0.1 k/uL (0-0.7) 01/21/17 02:42 Basophils # 0.0 k/uL (0-0.2) 01/21/17 02:42 Sodium 136 mmol/L (137-145) L 01/21/17 02:42 Potassium 3.8 mmol/L (3.5-5.1) 01/21/17 02:42 Chloride 101 mmol/L (98-107) 01/21/17 02:42 Carbon Dioxide 24 mmol/L (22-30) 01/21/17 02:42 Anion Gap 11 mmol/L 01/21/17 02:42 BUN 7 mg/dL (9-20) L 01/21/17 02:42 Creatinine 0.80 mg/dL (0.66-1.25) 01/21/17 02:42 Est GFR (MDRD) Af Amer >60 (>60 ml/min/1.73 sqM) 01/21/17 02:42 Est GFR (MDRD) Non-Af >60 (>60 ml/min/1.73 sqM) 01/21/17 02:42 Glucose 116 mg/dL (74-99) H 01/21/17 02:42 Calcium 9.5 mg/dL (8.4-10.2) 01/21/17 02:42 Magnesium 1.6 mg/dL (1.6-2.3) 01/21/17 02:42 Total Bilirubin 1.5 mg/dL (0.2-1.3) H 01/21/17 02:42 AST 82 U/L (17-59) H 01/21/17 02:42 ALT 86 U/L (21-72) H 01/21/17 02:42 Alkaline Phosphatase 80 U/L (38-126) 01/21/17 02:42 Total Protein 6.7 g/dL (6.3-8.2) 01/21/17 02:42 Albumin 4.2 g/dL (3.5-5.0) 01/21/17 02:42 Urine Color Light Yellow 01/21/17 02:42 Urine Appearance Clear (Clear) 01/21/17 02:42 Urine pH 7.5 (5.0-8.0) 01/21/17 02:42 Ur Specific [place] 1.002 (1.001-1.035) 01/21/17 02:42 Urine Protein Negative (Negative) 01/21/17 02:42 Urine Glucose (UA) Negative (Negative) 01/21/17 02:42 Urine Ketones 1+ (Negative) H 01/21/17 02:42 Urine Blood Negative (Negative) 01/21/17 02:42 Urine Nitrite Negative (Negative) 01/21/17 02:42 Urine Bilirubin Negative (Negative) 01/21/17 02:42 Urine Urobilinogen <2.0 mg/dL (<2.0) 01/21/17 02:42 Ur Leukocyte Esterase Negative (Negative) 01/21/17 02:42 Urine Opiates Screen Detected (NotDetected) H 01/21/17 02:42 Ur Oxycodone Screen Not Detected (NotDetected) 01/21/17 02:42 Urine Methadone Screen Not Detected (NotDetected) 01/21/17 02:42 Ur Propoxyphene Screen Not Detected (NotDetected) 01/21/17 02:42 Ur Barbiturates Screen Not Detected (NotDetected) 01/21/17 02:42 U Tricyclic Antidepress Not Detected (NotDetected) 01/21/17 02:42 Ur Phencyclidine Scrn Not Detected (NotDetected) 01/21/17 02:42 Ur Amphetamines Screen Not Detected (NotDetected) 01/21/17 02:42 U Methamphetamines Scrn Not Detected (NotDetected) 01/21/17 02:42 U Benzodiazepines Scrn Not Detected (NotDetected) 01/21/17 02:42 Urine Cocaine Screen Not Detected (NotDetected) 01/21/17 02:42 U Marijuana (THC) Screen Not Detected (NotDetected) 01/21/17 02:42 01/21/17 10:10
[2017-01-21] MEDS: GABAPENTIN 300 MG CAP PO SCH ×3 (12:51→20:45)
[2017-01-21] MEDS: THIAMINE 100 MG TAB PO SCH (12:52)
[2017-01-21] MEDS ORDERED: LORazepam 1 MG TAB PO STA (14:22)
--- NOTE | 2017-01-21 16:42 | P.CONS ---
History of Present Illness - Reason for Consult Consult date: 01/21/17 Medical management - History of Present Illness This is a 46-year-old male with no primary care physician. He has a medical history of depression, anxiety and high blood pressure, although has never been on medication for his high blood pressure. He had a recent hospitalization on the mental health unit January 10 and was discharged home. Patient states that he did not take his medications again that filled. He ended up going home and starting to drink and he was been drinking a fifth of alcohol per day. He states he has been suicidal and denies homicidal thoughts. He denies any chest pain or shortness of breath. Patient states he gets his plasma at the plasma clinic to get money for drinking. He is complaining of his feet feeling numb and tingling which has been described to him as neuropathy and he is on Neurontin. Urine drug screen is positive for opiates. He states that he wants to go to [place] to stop drinking. Review of Systems All systems: negative Constitutional: Denies chills, Denies fever Eyes: denies blurred vision, denies pain Ears, nose, mouth and throat: Denies headache, Denies sore throat Cardiovascular: Denies chest pain, Denies shortness of breath Respiratory: Denies cough Gastrointestinal: Denies abdominal pain, Denies diarrhea, Denies nausea, Denies vomiting Musculoskeletal: Denies myalgias Integumentary: Denies pruritus, Denies rash Neurological: Denies numbness, Denies weakness Psychiatric: Reports depression, Reports hopelessness, Reports suicidal ideation , Denies anxiety Endocrine: Denies fatigue, Denies weight change Past Medical History Past Medical History: GERD/Reflux, GI Bleed, Hypertension Additional Past Medical History / Comment(s): Alcoholic gastritis; Alcohol withdrawal, 2015 upper GI bleed. lt hand cellulitis History of Any Multi-Drug Resistant Organisms: Unobtainable Past Surgical History: No Surgical Hx Reported Additional Past Surgical History / Comment(s): Past surgical history documents that pt has never had any surgical procedures done. Past Anesthesia/Blood Transfusion Reactions: No Reported Reaction Additional Past Anesthesia/Blood Transfusion Reaction / Comm: Pt has never had surgery or blood transfusion per past medical records. Past Psychological History: Anxiety, Depression, Panic Disorder Additional Psychological History / Comment(s): Pt previously resided with his significant other-unknown at this time where he currently resides. PMH indicated he is independent. He uses no assistive devices. He does not drive- he uses the bus to get places. He has a mood disorder. He was seen in [facility] ER 02/21/15 with overdose-was seen by psychiatric services once he was sober and deemed not a suicidal risk. Smoking Status: Heavy tobacco smoker Past Alcohol Use History: Abuse, Daily Additional Past Alcohol Use History / Comment(s): [facility] documented that he is a smoker and he started smoking at age [age]yrs. He is a ppd smoker. Also indicated daily drinker. Past Drug Use History: None Reported, Marijuana - Past Family History Sister(s) Family Medical History: No Reported History Additional Family Medical History / Comment(s): [facility] indicates patient has 3 sisters with no major medical problems. Son(s) Family Medical History: No Reported History Additional Family Medical History / Comment(s): [facility] indicates that patient has one son with no major medical problems. Father Family Medical History: No Reported History Additional Family Medical History / Comment(s): [facility] indicated that father is living and that pt does not believe he has any health problem. Mother Family Medical History: No Reported History Additional Family Medical History / Comment(s): [facility] indicates that mother is living and pt did not believe she has any health problems other than she is a smoker. Medications and Allergies Home Medications Medication Instructions Recorded Confirmed Type Citalopram Hydrobromide 40 mg PO DAILY 01/17/17 01/21/17 History traZODone HCL 150 mg PO HS 01/17/17 01/21/17 History Allergies Allergy/AdvReac Type Severity Reaction Status Date / Time No Known Allergies Allergy Verified 01/21/17 07:29 Physical Exam Vitals: Vital Signs Temp Pulse Pulse Resp BP BP Pulse Ox 01/21/17 05:46 97.2 F L 89 22 133/87 01/21/17 04:08 97.5 F L 82 18 136/87 96 01/21/17 02:23 100.1 F H 136 H 18 153/100 95 Intake and Output 01/20/17 01/21/17 01/21/17 22:59 06:59 14:59 Other: Weight 69.8 kg General appearance: Alert, in no acute distress, poorly groomed HEENT exam: Normocephalic, atraumatic, pupils equal round react to light, mucous membranes moist oropharynx is clear Neck exam: Supple, trachea midline, no lymphadenopathy, no tenderness, no thyromegaly Respiratory exam: Lungs sounds are clear to auscultation bilaterally, no wheezes , no rhonchi, no rales Cardiovascular exam: Normal S1 and S2, no S3 or S4. Regular rate and rhythm no murmurs rubs gallops or clicks Abdominal exam: Positive bowel sounds, soft, nontender, nondistended, no masses , no rebound, no organomegaly Extremities exam: No significant deformity or joint abnormality, no edema, peripheral pulses are intact Psychiatric exam: Normal affect, normal mood Neurologic exam: Cranial nerves II through XII are intact, strength and sensation symmetric, patient is alert oriented to person place and time Results CBC & Chem 7: 01/21/17 02:42 01/21/17 02:42 Labs: Abnormal Lab Results - Last 24 Hours (Table) 01/21/17 01/21/17 01/21/17 Range/Units 02:42 02:42 02:42 WBC 11.5 H (3.8-10.6) k/uL Neutrophils # 8.5 H (1.3-7.7) k/uL Sodium 136 L (137-145) mmol/L BUN 7 L (9-20) mg/dL Glucose 116 H (74-99) mg/dL Total Bilirubin 1.5 H (0.2-1.3) mg/dL AST 82 H (17-59) U/L ALT 86 H (21-72) U/L Urine Ketones 1+ H (Negative) Urine Opiates Screen Detected H (NotDetected) Assessment and Plan Plan: 1. Depression with suicidal ideation. Patient admitted to the mental health unit. Continue current plan of care. 2. Alcohol intoxication. Continue Ativan as ordered by psych. 3. Tobacco use. nicotine patch as ordered. 4. 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 Continue Neurontin. Impression and plan of care have been directed as dictated by the signing physician. Melany Carbajal nurse practitioner acting as scribe for signing physician.
[2017-01-22] MEDS: NICOTINE 21MG/24HR PATCH TRANSDERM SCH (08:47)
[2017-01-22] MEDS: GABAPENTIN 300 MG CAP PO SCH ×3 (08:47→20:36)
[2017-01-22] MEDS: LORazepam 1 MG TAB PO PRN ×2 (08:47→16:07)
[2017-01-22] MEDS: THIAMINE 100 MG TAB PO SCH (12:46)
--- NOTE | 2017-01-22 15:00 | P.PN ---
Progress Note - Text INTERVERAL HISTORY: Patient came to office knocking on the door requesting to be seen. Patient states he is not sleeping well and would like to be prescribed trazodone. His roommate is making noise at night. Discussed his pattern of drinking and becoming suicidal, patient says that he was suicidal this morning but now just feels useless, worthless, hopeless. Patient is unable to come up with any plan to avoid the same repetition of drinking and becoming suicidal. He says there is a program through [facility] where homeless people can spend the day, and he thinks that might be helpful to him so that he doesn't drink. We discussed the possibility of using ReVia and he would like to give that a try. MENTAL STATUS EXAM: Alert and oriented [address], fair eye contact. Speech low volume and decreased rate and production. No LORE no FOI no delusions no ideas of reference. Denies auditory and visual hallucinations. Mood dysphoric and affect constricted. Suicidal ideation denies homicidal ideation PLAN: Continue inpatient psychiatric admission for safety. Start trazodone 150 mg at at bedtime Start ReVia 50 mg tomorrow morning. Check with [facility] about a program for homeless during the day. Waiting on [place] regarding his packet.
[2017-01-22] MEDS: traZODone HCL 50 MG TAB PO SCH (20:36)
[2017-01-23] MEDS: NALTREXONE HCL 50 MG TAB PO SCH (08:55)
[2017-01-23] MEDS: NICOTINE 21MG/24HR PATCH TRANSDERM SCH (08:56)
[2017-01-23] MEDS: GABAPENTIN 300 MG CAP PO SCH ×3 (08:56→21:14)
--- NOTE | 2017-01-23 12:42 | P.PN ---
Progress Note - Text INTERVERAL HISTORY: Patient in [place] group room watching tv. Reports he is tired, cannot sleep due to his roommate who is up all night, rustling paper bags. Patient irritated about the issue of him having an appointment at [facility] that he missed, then when told his packet was declined due to him saying he cannot tolerate crowds, which he clarifies now, as it being one baljeet who would sit behind him and scream. Asked patient to focus on issues that he has control over. Remains feeling useless, hopeless. He was pleased that we are looking into [place], for daytime when he is at alf. Still no plan to avoid drinking, presents with help rejecting style. No report of side effect from ReVia. Requested pain medication for feet, offered nonopiate med. MENTAL STATUS EXAM: Alert and oriented [address], fair eye contact. Speech low volume and decreased rate and production. No LORE no FOI no delusions no ideas of reference. Denies auditory and visual hallucinations. Mood dysphoric and affect constricted. +Suicidal ideation denies homicidal ideation PLAN: Continue inpatient psychiatric admission for safety. Mopnitor for withdrawals, has had elevated pulse and BP. Continue trazodone 150 mg at at bedtime Continue ReVia 50 mg QAM. Check with [facility] about a program for homeless during the day. Possible rehab at [place] Selected Entries 01/22/17 01/22/17 01/23/17 08:45 16:12 06:58 Pulse Rate [ 139 H 113 H 70 Right Sitting] Blood Pressure 111/82 136/76 [Right Arm Sitting]
[2017-01-23] MEDS: THIAMINE 100 MG TAB PO SCH (12:59)
[2017-01-23] MEDS: LORazepam 1 MG TAB PO PRN (18:46)
[2017-01-23] MEDS: ACETAMINOPHEN TAB 325 MG TAB PO PRN (18:48)
[2017-01-23] MEDS: traZODone HCL 50 MG TAB PO SCH (21:14)
[2017-01-24] MEDS: NICOTINE 21MG/24HR PATCH TRANSDERM SCH (09:04)
[2017-01-24] MEDS: LORazepam 1 MG TAB PO PRN ×2 (09:05→16:59)
[2017-01-24] MEDS: GABAPENTIN 300 MG CAP PO SCH ×3 (09:05→21:02)
[2017-01-24] MEDS: NALTREXONE HCL 50 MG TAB PO SCH (09:05)
[2017-01-24] MEDS: ACETAMINOPHEN TAB 325 MG TAB PO PRN ×2 (09:05→13:55)
--- NOTE | 2017-01-24 11:51 | P.PN ---
Progress Note - Text INTERVERAL HISTORY: Patient reported to nursing staff that he was suicidal and hopeless. He continues to focus on his fiance who this past August. When discussing plans to avoid drinking patient tends to be help rejecting. Patient did state that he was discussing with one of the other patients about the new medication that he is on, ReVia, and that is one reason for him to be a bit more hopeful Patient again did not sleep well and attributes some of his suicidal ideation and hopelessness to the insomnia. Although his roommate has changed the person is still making noise in the hallway. MENTAL STATUS EXAM: Alert and oriented 3 fair groomed fair eye contact. Speech low volume normal rate and production. No LORE no FOI no delusions no ideas of reference. Denies auditory and visual hallucinations. Mood dysphoric and affect constricted Positive for suicidal ideation, no homicidal ideation PLAN: Continue inpatient psychiatric admission for safety purposes Continue working with [facility] for discharge planning, to help avoid relapse. Increase trazodone 200 mg at bedtime when necessary insomnia. Continue ReVia 50 mg every morning
[2017-01-24] MEDS: THIAMINE 100 MG TAB PO SCH (12:27)
[2017-01-24] MEDS: traZODone HCL 100 MG TAB PO SCH (21:02)
[2017-01-25] MEDS: NALTREXONE HCL 50 MG TAB PO SCH (08:54)
[2017-01-25] MEDS: ACETAMINOPHEN TAB 325 MG TAB PO PRN ×3 (08:54→21:55)
[2017-01-25] MEDS: GABAPENTIN 300 MG CAP PO SCH ×3 (08:54→21:56)
[2017-01-25] MEDS: NICOTINE 21MG/24HR PATCH TRANSDERM SCH (08:54)
[2017-01-25] MEDS: THIAMINE 100 MG TAB PO SCH (12:10)
--- NOTE | 2017-01-25 14:00 | P.PN ---
Progress Note - Text INTERVERAL HISTORY: Patient reports he slept better last night, but woke up frequently. Has had a change in roommate which has helped somewhat. Patient reports that he was diagnosed with depression years ago before he was drinking heavy. Reports his average alcohol intake might be one or 2 a day and then occasionally 4-5 on the weekends. States he was tried on Seroquel but he had bad reaction to it and it was stopped. Never treated with any other antidepressant other than trazodone. Patient states that he began to drink heavily August or September after his fiance's . Since then he has had a hard time not drinking to intoxication or passing out. He has been noted to appear dysphoric, sad, with fluctuation of mood during the day. Has negative thoughts about his life, and has fluctuating suicidal ideation. Patient has self image of being a good worker but since not working his self-image is poor. His parents live in a trailer, they do not know that he is homeless, they aren't fixed income, and he does not want to ask them for help. He knows that his sisters frequently asks them and he doesn't want to add to their burden. Patient has been alcohol free for almost a week now, although he still is likely to have impact of the heavy alcohol, he is appearing dysphoric and at times melancholic. Fluctuating suicidal ideation. MENTAL STATUS EXAM:Patient alert and oriented 3, good eye contact, fair groomed in street clothing. Speech low volume, decreased rate and production. Coherent, logical and goal directed thought process. No LORE, no FOI. [No TB/TW/ TI] Denied auditory and visual hallucinations. Denied paranoid ideation, delusions or IOR. Memory [grossly intact] Cognition average Mood dysphoric, affect constricted, congruent with mood. Denies suicidal ideation, denies homicidal ideation. Insight partial; Judgment grossly intact Depression, unspecified ETOH Dependence, (ETOH USE, severe) Suicidal Homeless PLAN: Continue inpatient psychiatric hospitalization, for safety purposes. We'll start Prozac 20 mg every morning. Working with [facility] to provide day program or at least clubhouse when discharged. [facility] at night. Has date of February 06 for [facility].
[2017-01-25] MEDS: FLUoxetine HCL 20 MG CAP PO SCH (14:09)
[2017-01-25] MEDS: traZODone HCL 100 MG TAB PO SCH (21:56)
[2017-01-26] MEDS: GABAPENTIN 300 MG CAP PO SCH ×2 (09:05→15:51)
[2017-01-26] MEDS: NALTREXONE HCL 50 MG TAB PO SCH (09:05)
[2017-01-26] MEDS: NICOTINE 21MG/24HR PATCH TRANSDERM SCH (09:05)
[2017-01-26] MEDS: FLUoxetine HCL 20 MG CAP PO SCH (09:05)
[2017-01-26] MEDS: THIAMINE 100 MG TAB PO SCH (09:06)
[2017-01-26] MEDS: ACETAMINOPHEN TAB 325 MG TAB PO PRN ×3 (09:06→20:48)
[2017-01-26] MEDS: traZODone HCL 100 MG TAB PO SCH (20:46)
[2017-01-26] MEDS: MELATONIN 5 MG TABLET PO SCH (20:46)
[2017-01-26] MEDS: GABAPENTIN 400 MG CAP PO SCH (20:47)
[2017-01-26] MEDS: IBUPROFEN 400 MG TAB PO PRN (20:48)
--- NOTE | 2017-01-26 20:53 | P.PN ---
Progress Note - Text Date of service: 01/26/2017 Chief complaint: "Still feeling depressed" Subjective: The patient has been seen today as follow-up, chart reviewed, case discussed with the treatment team. patient reported to still has intermittent thoughts of hopelessness and has bouts of severe depression. He minimized suicidal ideation. He reported difficulty was a sleeping and he still has limited shaking which she will probably due to an anxiety. Patient in [place] increased anxiety and at times feels more tense and irritable. Patient reported bilateral feet pain related to nerve damage. He reported fair appetite. The patient denies any manic symptoms including sustained period of time with elevated or irritable mood, impulsive or irrational behavior, inflated self- esteem. The patient denies any auditory or visual hallucinations. Also the patient denies any paranoid ideation. Review of other systems: Patient denies any physical symptoms besides what has been mentioned above. No breathing problems, no chest pain reported today. Objective: Vitals has been reviewed. Mental status examination: appearance: Patient appears stated age partially disheveled. Gait/posture: Very short steps looks in pain due to his feet problem. Attitude and behavior: Engaged and cooperative with fair eye contact Motor activity: Psychomotor retardation Speech: Soft and slow. Mood: Depressed Affect: Constricted Thought form: Goal-directed and coherent Thought content: Non-delusional, denies suicidal thoughts, denies homicidal thoughts, denies intentions or plans. Perception: Denies any auditory or visual hallucinations Attention: No impairment. Orientation: Patient patient was fully oriented to time place person and situation. Insight: Patient has limited insight about his psychiatric disorder. Judgment: Patient has limited judgment about his psychiatric treatment. Assessment: unspecified depression alcohol use disorder severe Suicidal ideation Poor social support Plan: continue inpatient psychiatric hospitalization Continue Prozac 20 mg daily for depression increase the Neurontin to 800 mg by mouth 3 times a day to address anxiety, neuropathy, and postacute withdrawal Melatonin 5 mg by mouth at bedtime to help was asleep Motrin 400 mg by mouth 3 times a day when necessary severe pain
[2017-01-27] MEDS: GABAPENTIN 400 MG CAP PO SCH ×3 (08:52→20:48)
[2017-01-27] MEDS: NALTREXONE HCL 50 MG TAB PO SCH (08:52)
[2017-01-27] MEDS: FLUoxetine HCL 20 MG CAP PO SCH (08:52)
[2017-01-27] MEDS: NICOTINE 21MG/24HR PATCH TRANSDERM SCH (08:52)
[2017-01-27] MEDS: ACETAMINOPHEN TAB 325 MG TAB PO PRN ×3 (08:53→20:48)
[2017-01-27] MEDS: IBUPROFEN 400 MG TAB PO PRN ×3 (08:53→20:49)
[2017-01-27] MEDS: THIAMINE 100 MG TAB PO SCH (11:46)
--- NOTE | 2017-01-27 15:29 | P.PN ---
Progress Note - Text Date of service: 01/27/2017 Chief complaint: "I feel more irritable today" Subjective: The patient has been seen today as follow-up, chart reviewed, case discussed with the treatment team. Patient stated that he feels more irritable today, but he couldn't address any reason for this irritability. He minimized depression today and he reported feeling more positive and he denies suicidal thoughts. Patient reported had good sleep last night with melatonin. He stated that the pain is still severe but he felt some help from increasing the Neurontin and taking the Motrin. Patient denies any manic or psychotic symptoms. Review of other systems: Patient denies any physical symptoms besides what has been mentioned above. No breathing problems, no chest pain reported today. Objective: Vitals has been reviewed. Mental status examination: appearance: Patient appears stated age partially disheveled. Gait/posture: Very short steps looks in pain due to his feet problem. Attitude and behavior: Engaged and cooperative with fair eye contact Motor activity: No Psychomotor retardation or agitation Speech: Soft and slow. Mood: Irritable Affect: Constricted Thought form: Goal-directed and coherent Thought content: Non-delusional, denies suicidal thoughts, denies homicidal thoughts, denies intentions or plans. Perception: Denies any auditory or visual hallucinations Attention: No impairment. Orientation: Patient patient was fully oriented to time place person and situation. Insight: Patient has limited insight about his psychiatric disorder. Judgment: Patient has limited judgment about his psychiatric treatment. Assessment: unspecified depression alcohol use disorder severe Suicidal ideation Poor social support Plan: continue inpatient psychiatric hospitalization Continue Prozac 20 mg daily for depression increase the Neurontin to 800 mg by mouth 4 times a day to address anxiety, neuropathy, and postacute withdrawal Melatonin 5 mg by mouth at bedtime to help was asleep Motrin 400 mg by mouth 3 times a day when necessary severe pain
[2017-01-27] MEDS: MELATONIN 5 MG TABLET PO SCH (20:47)
[2017-01-27] MEDS: traZODone HCL 100 MG TAB PO SCH (20:47)
[2017-01-28] MEDS: GABAPENTIN 400 MG CAP PO SCH ×4 (08:10→22:10)
[2017-01-28] MEDS: FLUoxetine HCL 20 MG CAP PO SCH (08:10)
[2017-01-28] MEDS: NICOTINE 21MG/24HR PATCH TRANSDERM SCH (08:10)
[2017-01-28] MEDS: LORazepam 1 MG TAB PO PRN (08:11)
[2017-01-28] MEDS: ACETAMINOPHEN TAB 325 MG TAB PO PRN ×2 (08:11→22:10)
[2017-01-28] MEDS: NALTREXONE HCL 50 MG TAB PO SCH (08:11)
[2017-01-28] MEDS: IBUPROFEN 400 MG TAB PO PRN ×2 (08:12→22:11)
[2017-01-28] MEDS: THIAMINE 100 MG TAB PO SCH (12:24)
--- NOTE | 2017-01-28 15:02 | P.PN ---
Progress Note - Text INTERVERAL HISTORY: Patient called came to the nurse's station slowly due to pain. Patient reports that he slept better last night because he did not have as much pain in his feet. document control assistant gave him melatonin wasn't sure that it made any difference for sleep. Patient is planning on going to [place] February 06, hopeful that he'll be able to maintain sobriety up to that point. States he has some ideas on how to stay busy during the day. We will also hope that [facility] will be able to provide access to the [facility]. No problems reported or side effects to Prozac or ReVia No irritability today. MENTAL STATUS EXAM: Patient alert and oriented 3, good eye contact, fair groomed in street clothing. Speech normal volume, rate and production. Coherent, logical and goal directed thought process. No LORE, no FOI. [No TB/TW/ TI] Denied auditory and visual hallucinations. Denied paranoid ideation, delusions or IOR. Memory intact Cognition average Mood neutral, affect constricted, congruent with mood. Denies suicidal ideation, denies homicidal ideation. Insight partial; Judgment grossly intact for treatment purposes Assessment: unspecified depression alcohol use disorder severe Suicidal ideation Poor social support Plan: continue inpatient psychiatric hospitalization Continue Prozac 20 mg daily for depression Continue Neurontin to 800 mg by mouth 4 times a day to address anxiety, neuropathy, and abstinence Melatonin 5 mg by mouth at bedtime to help was asleep Motrin 400 mg by mouth 3 times a day when necessary severe pain SW to address [facility] authorization for [facility], so patient has a place to go during day, prison at night.
[2017-01-28] MEDS: MELATONIN 5 MG TABLET PO SCH (22:10)
[2017-01-28] MEDS: traZODone HCL 100 MG TAB PO SCH (22:10)
[2017-01-29 06:41] VITALS: BP 136/79; PULSE 62; RESP 17; TEMP 98.1
[2017-01-29] MEDS: NALTREXONE HCL 50 MG TAB PO SCH (09:43)
[2017-01-29] MEDS: FLUoxetine HCL 20 MG CAP PO SCH (09:46)
[2017-01-29] MEDS: GABAPENTIN 400 MG CAP PO SCH ×2 (09:46→12:29)
[2017-01-29] MEDS: LORazepam 1 MG TAB PO PRN (09:46)
[2017-01-29] MEDS: IBUPROFEN 400 MG TAB PO PRN (09:46)
[2017-01-29] MEDS: NICOTINE 21MG/24HR PATCH TRANSDERM SCH (09:46)
--- NOTE | 2017-01-29 12:19 | P.DS ---
Providers Date of admission: 01/21/17 04:54 Expected date of discharge: 01/29/17 Attending physician: Arline Sullivan MD Consults: 01/21/17 05:47 Consult Physician Routine Consulting Provider: Yvon Rowe Reason/Comments: H & P and medical follow up Do you want consulting provider notified?: Yes Primary care physician: Stated None Hospital Course: Patient patient admitted for his fourth admission to [facility]. he returned with suicidal ideation and alcohol intoxication. Added to this he has noted increase polyneuropathy which he sought treatment for in the emergency room and was discharged with gabapentin. Patient was in withdrawal which delayed some of his treatment but eventually passed through it without going into DTs. Patient identified one of the problems for him to remain sober is lack of activity during the daytime. Working with [facility] we identified the possibility of him being authorized to participate at the clubhouse and that he would stay in a [facility] at nighttime. We also discussed starting ReVia initially somewhat cautious but after he heard from some other patients about their experience he started to feel some hope for his alcohol dependence. With more observation patient was noted to be dysphoric and melancholic. He had been taking Celexa in the outpatient setting and had not seen any difference however due to his heavy alcohol use it's not appropriate to say that Celexa failed but changed to Prozac primarily due to its long half-life so that being homeless if he misses some days he may actually still have some benefit from it. He agreed to the change we started Prozac 20 mg no side effects tolerated it well then his gabapentin was increased over the weekend to help 1 with the neuropathy is now taking 800 mg 4 times a day this also may help to maintain abstinence from alcohol. He was also given an increased dose of his trazodone. He is sleeping better and is more hopeful he denies suicidal ideation. PAST PSYCHIATRIC HISTORY: Reports 4 admission, 4 here and 1 in [place]. Most recent last week with discharge on Saturday. Reports he made a half-hearted attempt at cutting wrists, no treatment needed. Reports celexa has been helpful, and gabapentin. Sees Yassine at [facility] IMPRESSIONS: 46 year old with roughly 20 year history of problematic drinking that by his report has gotten worse after the of his fiancee in August. Multiple admissions with short stays with little change in medication this admission appear to have withdrawal symptoms so was maintained longer on the CIWA scale. No DTs Mood was dysphoric and melancholic and although there is not much change he is more hopeful and no suicidal ideation. No psychosis, no evidence of andrea or hypomania. Safe for discharge. DISCHARGE Diagnosis: Depression unspecified ETOH Depenendence, severe (ETOH Use, severe) ETOH Intoxication ETOH Withdrawal PLAN: Discharge today Medications include Prozac 20 mg, trazodone 200 mg daily at bedtime when necessary insomnia, gabapentin 800 mg 4 times a day, ReVia 50 mg every morning Melatonin 5 mg daily at bedtime Pertinent Studies: none Procedures: none Patient Condition at Discharge: Stable Plan - Discharge Summary New Discharge Prescriptions: FLUoxetine HCL [PROzac] 20 mg PO DAILY #10 cap Gabapentin [Neurontin] 800 mg PO QID #80 cap Ibuprofen [Motrin] 400 mg PO TID PRN #30 tab PRN Reason: Severe Pain Melatonin 5 mg PO HS #10 tab Naltrexone HCl [Revia] 50 mg PO DAILY #10 tab traZODone HCL [Desyrel] 200 mg PO HS #20 tab Discharge Medication List FLUoxetine HCL [PROzac] 20 mg PO DAILY #10 cap 01/29/17 [Rx] Gabapentin [Neurontin] 800 mg PO QID #80 cap 01/29/17 [Rx] Ibuprofen [Motrin] 400 mg PO TID PRN #30 tab 01/29/17 [Rx] Melatonin 5 mg PO HS #10 tab 01/29/17 [Rx] Naltrexone HCl [Revia] 50 mg PO DAILY #10 tab 01/29/17 [Rx] traZODone HCL [Desyrel] 200 mg PO HS #20 tab 01/29/17 [Rx] Follow up Appointment(s)/Referral(s): [facility] [Outside] - 01/29/17 12:00 pm (Appointment with Wayne JUDD Sunday January 29, 2017 12:00pm) None,Stated [Primary Care Provider] - 1-2 days Discharge Disposition: HOME SELF-CARE
[2017-01-29] MEDS: THIAMINE 100 MG TAB PO SCH (12:29)
== END 2017-01-29 14:42 | disposition home or self-care (01) | DRG 881 ==
LOC: EC 02:16 → 3MHU 04:54
PROVIDERS: ADMIT Psychiatry & Neurology Addiction Medicine; ATTEND Psychiatry & Neurology Addiction Medicine
DX: F32.9 Major depressive disorder, single episode, unspecified (principal); G62.9 Polyneuropathy, unspecified; R45.851 Suicidal ideations; F10.239 Alcohol dependence with withdrawal, unspecified; I10 Essential (primary) hypertension; F17.200 Nicotine dependence, unspecified, uncomplicated; F41.0 Panic disorder [episodic paroxysmal anxiety]; G47.00 Insomnia, unspecified; K21.9 Gastro-esophageal reflux disease without esophagitis; Z59.0 Homelessness; Z79.899 Other long term (current) drug therapy; Z87.440 Personal history of urinary (tract) infections
CPT/HCPCS: 36415; 71010; 80053; 80306; 81003; 82075; 83735; 84443; 85025; 96361; 96374; 99285

== ENCOUNTER 2017-03-22 01:50 | Emergency (ER) | payer OTHER ==
[2017-03-22 01:56] VITALS: PULSE 100; TEMP 97.4
--- NOTE | 2017-03-22 02:01 | ED ---
General Adult HPI - General Chief complaint: Alcohol Stated complaint: ETOH Time Seen by Provider: 03/22/17 01:52 Source: patient, EMS, RN notes reviewed Mode of arrival: EMS Limitations: no limitations - History of Present Illness Initial comments: 46-year-old male presents to the emergency department with no complaints. He states that he is a chronic alcoholic. He states he's been sleeping where he normally states that he is homeless for the past multiple hours. He states that he was woken up by the fitting supervisor they called 911 and he came by ambulance here. He has no complaints. He states that he has no pain. He does not know why he is here. Patient is able to answer all questions appropriately. He does state that he is hungry.Patient denies any recent fever, chills, shortness of breath, chest pain, back pain, abdominal pain, nausea vomiting, numbness or tingling, dysuria or hematuria, constipation or diarrhea, headaches or visual changes, or any other current symptoms. - Related Data Previous Rx's Medication Instructions Recorded FLUoxetine HCL [PROzac] 20 mg PO DAILY #10 cap 01/29/17 Gabapentin [Neurontin] 800 mg PO QID #80 cap 01/29/17 Ibuprofen [Motrin] 400 mg PO TID PRN #30 tab 01/29/17 Melatonin 5 mg PO HS #10 tab 01/29/17 Naltrexone HCl [Revia] 50 mg PO DAILY #10 tab 01/29/17 traZODone HCL [Desyrel] 200 mg PO HS #20 tab 01/29/17 Allergies Allergy/AdvReac Type Severity Reaction Status Date / Time No Known Allergies Allergy Verified 01/21/17 07:29 Review of Systems ROS Statement: Those systems with pertinent positive or pertinent negative responses have been documented in the HPI. ROS Other: All systems not noted in ROS Statement are negative. Past Medical History Past Medical History: GERD/Reflux, GI Bleed, Hypertension Additional Past Medical History / Comment(s): Alcoholic gastritis; Alcohol withdrawal, 2015 upper GI bleed. lt hand cellulitis History of Any Multi-Drug Resistant Organisms: Unobtainable Past Surgical History: No Surgical Hx Reported Additional Past Surgical History / Comment(s): Past surgical history documents that pt has never had any surgical procedures done. Past Anesthesia/Blood Transfusion Reactions: No Reported Reaction Additional Past Anesthesia/Blood Transfusion Reaction / Comment(s): Pt has never had surgery or blood transfusion per past medical records. Past Psychological History: Anxiety, Depression, Panic Disorder Smoking Status: Heavy tobacco smoker Past Alcohol Use History: Abuse, Daily Past Drug Use History: None Reported, Marijuana - Past Family History Sister(s) Family Medical History: No Reported History Additional Family Medical History / Comment(s): PMH indicates patient has 3 sisters with no major medical problems. Son(s) Family Medical History: No Reported History Additional Family Medical History / Comment(s): PMH indicates that patient has one son with no major medical problems. Father Family Medical History: No Reported History Additional Family Medical History / Comment(s): PMH indicated that father is living and that pt does not believe he has any health problem. Mother Family Medical History: No Reported History Additional Family Medical History / Comment(s): PMH indicates that mother is living and pt did not believe she has any health problems other than she is a smoker. General Exam Limitations: no limitations General appearance: alert, in no apparent distress Head exam: Present: atraumatic, normocephalic, normal inspection ENT exam: Present: normal exam, mucous membranes moist Neck exam: Present: normal inspection. Absent: tenderness, meningismus, lymphadenopathy Respiratory exam: Present: normal lung sounds bilaterally. Absent: respiratory distress, wheezes, rales, rhonchi, stridor Cardiovascular Exam: Present: regular rate, normal rhythm, normal heart sounds. Absent: systolic murmur, diastolic murmur, rubs, gallop, clicks Neurological exam: Present: alert, oriented X3 Psychiatric exam: Present: normal affect, normal mood Skin exam: Present: warm, dry, intact, normal color. Absent: rash Course Vital Signs 03/22/17 01:51 Temperature 97.4 F L Pulse Rate 100 Respiratory 20 Rate Blood Pressure 123/84 O2 Sat by Pulse 94 L Oximetry - Reevaluation(s) Reevaluation #1: 03/22/17 04:11 this time patient is up moving around and clinically sober. This time patient will be discharged. Medical Decision Making - Medical Decision Making 46-year-old male presents emergency department complaint. He was sent here by the police. This time patient has no complaints and exam is benign. Patient did eat a sandwich and had water here in the emergency department. Patient does appear to be clinically sober he is able to walk up and down the hallways he answers all questions appropriately at this time. This time the patient will be discharged to home. We did discuss this with the patient and his finger with the plan. All questions have been answered. Disposition Clinical Impression: Alcohol abuse Disposition: HOME SELF-CARE Condition: Stable Instructions: Alcohol Intoxication (ED) Additional Instructions: Please use medication as discussed. Please follow up with family doctor if symptoms have not improved over the next two days. Please return to the emergency room if your symptoms increase or worsen or for any other concerns. Referrals: Yvon Watts MD [STAFF PHYSICIAN] - 1-2 days Time of Disposition: 04:12
[2017-03-22 04:19] VITALS: BP 131/80; RESP 18
== END 2017-03-22 04:20 | disposition home or self-care (01) ==
LOC: EC 01:50
DX: F10.20 Alcohol dependence, uncomplicated (principal); F17.200 Nicotine dependence, unspecified, uncomplicated; Z59.0 Homelessness
CPT/HCPCS: 99284

== ENCOUNTER 2017-03-23 20:18 | Emergency (ER) | payer OTHER ==
[2017-03-23 20:27] VITALS: RESP 16; TEMP 98.4
--- NOTE | 2017-03-23 23:52 | ED ---
General Adult HPI - General Source: patient, RN notes reviewed Mode of arrival: ambulatory Limitations: no limitations <Austin Bianchi - Last Filed: 03/23/17 23:48> <Navarro Hyatt - Last Filed: 03/24/17 04:46> - General Chief complaint: Psychiatric Symptoms Stated complaint: suicidal Time Seen by Provider: 03/23/17 20:36 - History of Present Illness Initial comments: 46-year-old male with history of alcohol abuse, and depression presents with suicidal ideation. Patient states he intends to step in front of oncoming traffic. This is this plan. He denies taking anything today. Denies medication ingestion. Denies any self-harm. He does admit to drinking beer earlier in the day. Denies chest pain or shortness of breath. Denies nausea vomiting or diarrhea. Patient is homeless and complains of bilateral feet pain which is chronic. (Austin Bianchi) - Related Data Previous Rx's Medication Instructions Recorded FLUoxetine HCL [PROzac] 20 mg PO DAILY #10 cap 01/29/17 Gabapentin [Neurontin] 800 mg PO QID #80 cap 01/29/17 Ibuprofen [Motrin] 400 mg PO TID PRN #30 tab 01/29/17 Melatonin 5 mg PO HS #10 tab 01/29/17 Naltrexone HCl [Revia] 50 mg PO DAILY #10 tab 01/29/17 traZODone HCL [Desyrel] 200 mg PO HS #20 tab 01/29/17 Allergies Allergy/AdvReac Type Severity Reaction Status Date / Time codeine Allergy Unknown Verified 03/23/17 20:27 Review of Systems ROS Other: All systems not noted in ROS Statement are negative. <Austin Bianchi - Last Filed: 03/23/17 23:48> ROS Other: All systems not noted in ROS Statement are negative. <Navarro Hyatt - Last Filed: 03/24/17 04:46> ROS Statement: Those systems with pertinent positive or pertinent negative responses have been documented in the HPI. Past Medical History Past Medical History: GERD/Reflux, GI Bleed, Hypertension Additional Past Medical History / Comment(s): Alcoholic gastritis; Alcohol withdrawal, 2015 upper GI bleed. lt hand cellulitis History of Any Multi-Drug Resistant Organisms: None Reported Past Surgical History: No Surgical Hx Reported Additional Past Surgical History / Comment(s): Past surgical history documents that pt has never had any surgical procedures done. Past Anesthesia/Blood Transfusion Reactions: No Reported Reaction Additional Past Anesthesia/Blood Transfusion Reaction / Comment(s): Pt has never had surgery or blood transfusion per past medical records. Past Psychological History: Anxiety, Depression, Panic Disorder Smoking Status: Heavy tobacco smoker Past Alcohol Use History: Abuse, Daily Past Drug Use History: None Reported, Marijuana - Past Family History Sister(s) Family Medical History: No Reported History Additional Family Medical History / Comment(s): PMH indicates patient has 3 sisters with no major medical problems. Son(s) Family Medical History: No Reported History Additional Family Medical History / Comment(s): PMH indicates that patient has one son with no major medical problems. Father Family Medical History: No Reported History Additional Family Medical History / Comment(s): PMH indicated that father is living and that pt does not believe he has any health problem. Mother Family Medical History: No Reported History Additional Family Medical History / Comment(s): H indicates that mother is living and pt did not believe she has any health problems other than she is a smoker. <Austin Bianchi - Last Filed: 03/23/17 23:48> General Exam Limitations: no limitations General appearance: alert, in no apparent distress, appears intoxicated Head exam: Present: atraumatic, normocephalic Eye exam: Present: normal appearance, PERRL ENT exam: Present: normal exam, mucous membranes moist Neck exam: Present: normal inspection, full ROM. Absent: tenderness Respiratory exam: Present: normal lung sounds bilaterally. Absent: respiratory distress Cardiovascular Exam: Present: normal rhythm, tachycardia GI/Abdominal exam: Present: soft. Absent: distended, tenderness Extremities exam: Present: normal inspection, normal capillary refill. Absent: pedal edema Back exam: Present: normal inspection Neurological exam: Present: alert, oriented X3, CN II-XII intact. Absent: motor sensory deficit Psychiatric exam: Present: depressed, anxious, suicidal ideation Skin exam: Present: warm, dry <Austin Bianchi - Last Filed: 03/23/17 23:48> Course <Austin Bianchi - Last Filed: 03/23/17 23:48> <Navarro Hyatt - Last Filed: 03/24/17 04:46> Vital Signs 03/23/17 20:22 Temperature 98.4 F Pulse Rate 114 H Respiratory 16 Rate Blood Pressure 139/89 O2 Sat by Pulse 96 Oximetry General is assessed by department of psychiatry. This morning they're comfortable sending him home and they have arranged appropriate follow up for him, therefore patient will be discharged from the ER and he will follow up according to destruction of the department psychiatry (Navarro Hyatt) Medical Decision Making <Austin Bianchi - Last Filed: 03/23/17 23:48> <Navarro Hyatt - Last Filed: 03/24/17 04:46> - Medical Decision Making 46-year-old male presenting with suicidal ideation and plan. Patient's blood alcohol level is 180. He is currently awaiting sobriety for psychiatric evaluation. (Austin Bianchi) - Lab Data Lab Results 03/23/17 Range/Units 22:00 Urine Opiates Screen Not Detected (NotDetected) Ur Oxycodone Screen Not Detected (NotDetected) Urine Methadone Screen Not Detected (NotDetected) Ur Propoxyphene Screen Not Detected (NotDetected) Ur Barbiturates Screen Not Detected (NotDetected) U Tricyclic Antidepress Not Detected (NotDetected) Ur Phencyclidine Scrn Not Detected (NotDetected) Ur Amphetamines Screen Not Detected (NotDetected) U Methamphetamines Scrn Not Detected (NotDetected) U Benzodiazepines Scrn Not Detected (NotDetected) Urine Cocaine Screen Not Detected (NotDetected) U Marijuana (THC) Screen Not Detected (NotDetected) Disposition <Austin Bianchi - Last Filed: 03/23/17 23:48> <Navarro Hyatt - Last Filed: 03/24/17 04:46> Clinical Impression: Depression Disposition: HOME SELF-CARE Instructions: Depression (ED) Additional Instructions: He will follow up according to the directions given to him by department psychiatry Referrals: None,Stated [Primary Care Provider] - 1-2 days
[2017-03-24 04:53] VITALS: BP 147/74; PULSE 80
== END 2017-03-24 04:52 | disposition home or self-care (01) ==
LOC: EC 20:18
DX: F32.9 Major depressive disorder, single episode, unspecified (principal); F41.9 Anxiety disorder, unspecified; F10.129 Alcohol abuse with intoxication, unspecified; R45.851 Suicidal ideations; M79.671 Pain in right foot; M79.672 Pain in left foot; F17.200 Nicotine dependence, unspecified, uncomplicated; Z88.5 Allergy status to narcotic agent; Z59.0 Homelessness; Y90.6 Blood alcohol level of 120-199 mg/100 ml
CPT/HCPCS: 80306; 82075; 99284

== ENCOUNTER 2017-06-23 19:59 | Emergency (ER) | payer OTHER ==
--- NOTE | 2017-06-23 20:08 | ED ---
Alcohol HPI - General Source: patient, EMS, RN notes reviewed Mode of arrival: EMS Limitations: no limitations - History of Present Illness MD Complaint: alcohol intoxication <Austin Blanchard - Last Filed: 06/23/17 20:52> <Navarro Hyatt - Last Filed: 06/24/17 08:07> <Nicholas Stroud - Last Filed: 06/24/17 10:37> - General Stated Complaint: ETOH Time Seen by Provider: 06/23/17 20:00 - History of Present Illness Initial Comments: This is a 47-year-old male history of alcohol abuse history depression who was found sleeping in the street. He was brought by EMS for evaluation patient is awake alert but somewhat lethargic he does admit to drinking a lot of alcohol he denies any suicidal thought or ideation at this time. He denies any injury. (Austin Blanchard) - Related Data Home Medications Medication Instructions Recorded Confirmed No Known Home Medications [No 06/23/17 06/23/17 Known Home Medications] Allergies Allergy/AdvReac Type Severity Reaction Status Date / Time codeine AdvReac Nausea & Verified 06/23/17 20:49 Vomiting Review of Systems ROS Other: All systems not noted in ROS Statement are negative. <Austin Blanchard - Last Filed: 06/23/17 20:52> ROS Other: All systems not noted in ROS Statement are negative. <Navarro Hyatt - Last Filed: 06/24/17 08:07> ROS Other: All systems not noted in ROS Statement are negative. <Nicholas Stroud - Last Filed: 06/24/17 10:37> ROS Statement: Those systems with pertinent positive or pertinent negative responses have been documented in the HPI. Past Medical History Past Medical History: GERD/Reflux, GI Bleed, Hypertension Additional Past Medical History / Comment(s): Alcoholic gastritis; Alcohol withdrawal, 2015 upper GI bleed. lt hand cellulitis History of Any Multi-Drug Resistant Organisms: None Reported Past Surgical History: No Surgical Hx Reported Additional Past Surgical History / Comment(s): Past surgical history documents that pt has never had any surgical procedures done. Past Anesthesia/Blood Transfusion Reactions: No Reported Reaction Additional Past Anesthesia/Blood Transfusion Reaction / Comment(s): Pt has never had surgery or blood transfusion per past medical records. Past Psychological History: Anxiety, Depression, Panic Disorder Smoking Status: Heavy tobacco smoker Past Alcohol Use History: Daily Past Drug Use History: None Reported - Past Family History Sister(s) Family Medical History: No Reported History Additional Family Medical History / Comment(s): PMH indicates patient has 3 sisters with no major medical problems. Son(s) Family Medical History: No Reported History Additional Family Medical History / Comment(s): [facility]H indicates that patient has one son with no major medical problems. Father Family Medical History: No Reported History Additional Family Medical History / Comment(s): PMH indicated that father is living and that pt does not believe he has any health problem. Mother Family Medical History: No Reported History Additional Family Medical History / Comment(s): PMH indicates that mother is living and pt did not believe she has any health problems other than she is a smoker. <Austin Blanchard - Last Filed: 06/23/17 20:52> General Exam Limitations: no limitations General appearance: alert, in no apparent distress Head exam: Present: atraumatic, normocephalic, normal inspection Eye exam: Present: normal appearance, PERRL, EOMI. Absent: scleral icterus, conjunctival injection, periorbital swelling ENT exam: Present: normal exam, mucous membranes moist Neck exam: Present: normal inspection. Absent: tenderness, meningismus, lymphadenopathy Respiratory exam: Present: normal lung sounds bilaterally. Absent: respiratory distress, wheezes, rales, rhonchi, stridor Cardiovascular Exam: Present: regular rate, normal rhythm, normal heart sounds. Absent: systolic murmur, diastolic murmur, rubs, gallop, clicks GI/Abdominal exam: Present: soft, normal bowel sounds. Absent: distended, tenderness, guarding, rebound, rigid Extremities exam: Present: normal inspection, full ROM, normal capillary refill. Absent: tenderness, pedal edema, joint swelling, calf tenderness Back exam: Present: normal inspection Neurological exam: Present: alert, CN II-XII intact. Absent: motor sensory deficit Psychiatric exam: Present: normal mood, flat affect Skin exam: Present: warm, dry, intact, normal color. Absent: rash <Austin Blanchard - Last Filed: 06/23/17 20:52> <Navarro Hyatt - Last Filed: 06/24/17 08:07> <Nicholas Stroud - Last Filed: 06/24/17 10:37> - General Exam Comments Initial Comments: This is a well-developed well-nourished awake alert male he is alert to place and self not to time he does demonstrate the smell of alcohol conjoiners on his breath (Austin Blanchard) Course <SantoAustin - Last Filed: 06/23/17 20:52> <Navarro Hyatt - Last Filed: 06/24/17 08:07> <Nicholas Stroud - Last Filed: 06/24/17 10:37> Vital Signs 06/23/17 06/23/17 06/24/17 20:03 21:00 05:28 Temperature 97.9 F 98.0 F Pulse Rate 71 55 L 98 Respiratory 18 18 18 Rate Blood Pressure 143/80 132/93 148/94 O2 Sat by Pulse 100 96 95 Oximetry Patient was reassessed at 2230, he woke up easily, he was alert oriented time place and person, is GCS is 15, he had no complaint, his vitals were reviewed and they are quite stable General be endorsed to Dr. Stroud at the end of my shift (Navarro Hyatt) - Reevaluation(s) Reevaluation #1: 06/23/17 20:53 Patient is resting comfortably his care will be endorsed to Dr. Hyatt at our shift change. He will make the final disposition (Austin Blanchard) Medical Decision Making <Austin Blanchard - Last Filed: 06/23/17 20:52> <Navarro Hyatt - Last Filed: 06/24/17 08:07> <Nicholas Stroud - Last Filed: 06/24/17 10:37> - Medical Decision Making Patient reevaluated by myself, Dr. Stroud. Patient was seen by mental health services who did recommend discharge. Patient denies any suicidal ideation. Patient does not recall making suicidal statements. Patient does contract for safety. (Nicholas Stroud) - Lab Data Lab Results 06/24/17 Range/Units 06:09 Urine Opiates Screen Not Detected (NotDetected) Ur Oxycodone Screen Not Detected (NotDetected) Urine Methadone Screen Not Detected (NotDetected) Ur Propoxyphene Screen Not Detected (NotDetected) Ur Barbiturates Screen Not Detected (NotDetected) U Tricyclic Antidepress Not Detected (NotDetected) Ur Phencyclidine Scrn Not Detected (NotDetected) Ur Amphetamines Screen Not Detected (NotDetected) U Methamphetamines Scrn Not Detected (NotDetected) U Benzodiazepines Scrn Not Detected (NotDetected) Urine Cocaine Screen Not Detected (NotDetected) U Marijuana (THC) Screen Not Detected (NotDetected) Disposition <Austin Blanchard - Last Filed: 06/23/17 20:52> <Navarro Hyatt - Last Filed: 06/24/17 08:07> <Nicholas Stroud - Last Filed: 06/24/17 10:37> Clinical Impression: Alcohol intoxication Disposition: HOME SELF-CARE Condition: Stable Instructions: Alcohol Intoxication (ED) Additional Instructions: Please follow-up with primary care physician in the next day or 2 for recheck. Limit alcohol use. Return for worsening symptoms, thoughts of self-harm, or other concerns. Referrals: Yvon Watts MD [STAFF PHYSICIAN] - 1-2 days
[2017-06-23 20:09] VITALS: RESP 18
[2017-06-24 11:01] VITALS: BP 164/107; PULSE 93; TEMP 97.8
== END 2017-06-24 10:49 | disposition home or self-care (01) ==
LOC: EC 19:59
DX: F10.129 Alcohol abuse with intoxication, unspecified (principal); F17.200 Nicotine dependence, unspecified, uncomplicated; Z88.5 Allergy status to narcotic agent
CPT/HCPCS: 80306; 82075; 99285

== ENCOUNTER 2017-06-24 15:37 | Emergency (ER) | payer OTHER ==
[2017-06-24 15:53] VITALS: TEMP 97
--- NOTE | 2017-06-24 16:29 | ED ---
General Adult HPI - General Source: EMS Mode of arrival: EMS Limitations: altered mental status <Marjorie Chun - Last Filed: 06/24/17 19:39> <Austin Blanchard - Last Filed: 06/24/17 22:48> - General Chief complaint: Alcohol Stated complaint: ETOH Time Seen by Provider: 06/24/17 15:42 - History of Present Illness Initial comments: 47 yo male presents for alcohol intoxication. Patient is a daily drinker. Patient is here for alcohol intoxication. Patient has no complaints. Patient was otherwise a poor historian. Patient denies any recent fever, chills, shortness of breath, chest pain, back pain, abdominal pain, nausea vomiting, numbness or tingling, dysuria or hematuria, constipation or diarrhea, headaches or visual changes, or any other current symptoms. (Marjorie Chun) - Related Data Home Medications Medication Instructions Recorded Confirmed No Known Home Medications [No 06/23/17 06/24/17 Known Home Medications] Allergies Allergy/AdvReac Type Severity Reaction Status Date / Time codeine AdvReac Nausea & Verified 06/24/17 16:20 Vomiting Review of Systems ROS Other: All systems not noted in ROS Statement are negative. <Marjorie Chun - Last Filed: 06/24/17 19:39> ROS Other: All systems not noted in ROS Statement are negative. <Austin Blanchard - Last Filed: 06/24/17 22:48> ROS Statement: Those systems with pertinent positive or pertinent negative responses have been documented in the HPI. Past Medical History Past Medical History: GERD/Reflux, GI Bleed, Hypertension Additional Past Medical History / Comment(s): Alcoholic gastritis; Alcohol withdrawal, 2015 upper GI bleed. lt hand cellulitis History of Any Multi-Drug Resistant Organisms: None Reported Past Surgical History: No Surgical Hx Reported Additional Past Surgical History / Comment(s): Past surgical history documents that pt has never had any surgical procedures done. Past Anesthesia/Blood Transfusion Reactions: No Reported Reaction Additional Past Anesthesia/Blood Transfusion Reaction / Comment(s): Pt has never had surgery or blood transfusion per past medical records. Past Psychological History: Anxiety, Depression, Panic Disorder Past Alcohol Use History: Abuse, Daily Past Drug Use History: None Reported, Marijuana - Past Family History Sister(s) Family Medical History: No Reported History Additional Family Medical History / Comment(s): PMH indicates patient has 3 sisters with no major medical problems. Son(s) Family Medical History: No Reported History Additional Family Medical History / Comment(s): PMH indicates that patient has one son with no major medical problems. Father Family Medical History: No Reported History Additional Family Medical History / Comment(s): PMH indicated that father is living and that pt does not believe he has any health problem. Mother Family Medical History: No Reported History Additional Family Medical History / Comment(s): PMH indicates that mother is living and pt did not believe she has any health problems other than she is a smoker. <Marjorie Chun - Last Filed: 06/24/17 19:39> General Exam Limitations: altered mental status General appearance: alert Head exam: Present: atraumatic ENT exam: Present: normal exam, mucous membranes moist Neck exam: Present: normal inspection. Absent: tenderness, meningismus, lymphadenopathy Respiratory exam: Present: normal lung sounds bilaterally. Absent: respiratory distress, wheezes, rales, rhonchi, stridor Cardiovascular Exam: Present: regular rate, normal rhythm, normal heart sounds. Absent: systolic murmur, diastolic murmur, rubs, gallop, clicks Extremities exam: Present: normal inspection Neurological exam: Present: alert Psychiatric exam: Present: normal affect, normal mood Skin exam: Present: warm, dry, intact, normal color. Absent: rash <Marjorie Chun - Last Filed: 06/24/17 19:39> Course <Marjorie Chun - Last Filed: 06/24/17 19:39> <Austin Blanchard - Last Filed: 06/24/17 22:48> Vital Signs 06/24/17 06/24/17 15:46 18:54 Temperature 97 F L Pulse Rate 62 84 Respiratory 16 18 Rate Blood Pressure 119/67 129/85 O2 Sat by Pulse 99 95 Oximetry - Reevaluation(s) Reevaluation #1: 06/24/17 19:39 This case will be signed out to Dr. Chavarria. (Marjorie Chun) Reevaluation #2: 06/24/17 22:47 The patient was endorsed by Dr. Chavarria at our shift change. Patient was pending sobriety. He was resting currently throughout the evening. He was noted be awake alert oriented [address] without any difficulty whatsoever. Patient did elope from the emergency department. (Austin Blanchard) Medical Decision Making <Marjorie Chun - Last Filed: 06/24/17 19:39> <Austin Blanchard - Last Filed: 06/24/17 22:48> - Medical Decision Making 47-year-old male presents for alcohol intoxication. (Marjorie Chun) Disposition <Marjorie Chun - Last Filed: 06/24/17 19:39> <Austin Blanchard - Last Filed: 06/24/17 22:48> Clinical Impression: Alcohol intoxication Disposition: Left Against Medical Advice Condition: Stable Referrals: None,Stated [Primary Care Provider] - 1-2 days
[2017-06-24 18:55] VITALS: BP 129/85; PULSE 84; RESP 18
== END 2017-06-24 22:50 | disposition left against medical advice (07) ==
LOC: EC 15:37
DX: F10.129 Alcohol abuse with intoxication, unspecified (principal); R41.82 Altered mental status, unspecified; Z88.5 Allergy status to narcotic agent
CPT/HCPCS: 99284

== ENCOUNTER 2017-06-26 09:00 | Observation (INO) | payer OTHER ==
[2017-06-26] MEDS ORDERED: LORazepam 2 MG/ML INJ IV PRN (11:28)
[2017-06-26] MEDS ORDERED: ONDANSETRON 4 MG/2 ML VIAL IVP PRN (11:28)
[2017-06-26] MEDS ORDERED: NALOXONE 0.4 MG/ML 1 ML VIAL IV PRN (11:28)
[2017-06-26] MEDS ORDERED: TEMAZEPAM 15 MG CAP PO PRN (11:28)
--- NOTE | 2017-06-26 11:28 | ED ---
Alcohol HPI - General Chief Complaint: Alcohol Stated Complaint: ETOH Time Seen by Provider: 06/26/17 09:30 Source: patient, police, EMS Mode of arrival: EMS Limitations: no limitations - History of Present Illness Initial Comments: Patient presents with acute alcohol intoxication. He denies any fever or chills. He has no chest pain or shortness of breath. He has no belly or back pain. He has no nausea or vomiting. He denies any injuries. He did not hit his head. He denies conscious. He has no neck pain or stiffness. He has no abrasions. He has no focal weakness. He is tolerating oral intake. He does admit to drinking today. - Related Data Home Medications Medication Instructions Recorded Confirmed No Known Home Medications [No 06/23/17 06/26/17 Known Home Medications] Allergies Allergy/AdvReac Type Severity Reaction Status Date / Time codeine AdvReac Nausea & Verified 06/26/17 09:11 Vomiting Review of Systems ROS Statement: Those systems with pertinent positive or pertinent negative responses have been documented in the HPI. ROS Other: All systems not noted in ROS Statement are negative. Past Medical History Past Medical History: GERD/Reflux, GI Bleed, Hypertension Additional Past Medical History / Comment(s): Alcoholic gastritis; Alcohol withdrawal, 2015 upper GI bleed. lt hand cellulitis History of Any Multi-Drug Resistant Organisms: None Reported Past Surgical History: No Surgical Hx Reported Additional Past Surgical History / Comment(s): Past surgical history documents that pt has never had any surgical procedures done. Past Anesthesia/Blood Transfusion Reactions: No Reported Reaction Additional Past Anesthesia/Blood Transfusion Reaction / Comment(s): Pt has never had surgery or blood transfusion per past medical records. Past Psychological History: Anxiety, Depression, Panic Disorder Past Alcohol Use History: Abuse, Daily Past Drug Use History: None Reported, Marijuana - Past Family History Sister(s) Family Medical History: No Reported History Additional Family Medical History / Comment(s): PMH indicates patient has 3 sisters with no major medical problems. Son(s) Family Medical History: No Reported History Additional Family Medical History / Comment(s): [facility] indicates that patient has one son with no major medical problems. Father Family Medical History: No Reported History Additional Family Medical History / Comment(s): [facility] indicated that father is living and that pt does not believe he has any health problem. Mother Family Medical History: No Reported History Additional Family Medical History / Comment(s): PMH indicates that mother is living and pt did not believe she has any health problems other than she is a smoker. General Exam Limitations: no limitations General appearance: alert, in no apparent distress Head exam: Present: atraumatic, normocephalic, normal inspection Eye exam: Present: normal appearance, PERRL, EOMI. Absent: scleral icterus, conjunctival injection, periorbital swelling ENT exam: Present: normal exam, mucous membranes moist Neck exam: Present: normal inspection. Absent: tenderness, meningismus, lymphadenopathy Respiratory exam: Present: normal lung sounds bilaterally. Absent: respiratory distress, wheezes, rales, rhonchi, stridor Cardiovascular Exam: Present: regular rate, normal rhythm, normal heart sounds. Absent: systolic murmur, diastolic murmur, rubs, gallop, clicks GI/Abdominal exam: Present: soft, normal bowel sounds. Absent: distended, tenderness, guarding, rebound, rigid Extremities exam: Present: normal inspection, full ROM, normal capillary refill. Absent: tenderness, pedal edema, joint swelling, calf tenderness Back exam: Present: normal inspection Neurological exam: Present: alert, oriented X3, CN II-XII intact Psychiatric exam: Present: normal affect, normal mood Skin exam: Present: warm, dry, intact, normal color. Absent: rash Course Vital Signs 06/26/17 06/26/17 09:06 09:20 Temperature 96.9 F L Pulse Rate 76 Respiratory 16 Rate Blood Pressure 157/95 O2 Sat by Pulse 98 Oximetry Medical Decision Making - Medical Decision Making Patient presents with acute alcohol intoxication. His level is extremely elevated. He will be admitted to the hospital. - Lab Data Lab Results 06/26/17 Range/Units 10:05 Serum Alcohol 413 mg/dL Disposition Clinical Impression: Alcohol intoxication Disposition: ADMITTED IP TO THIS HOSP Condition: Fair Referrals: None,Stated [Primary Care Provider] - 1-2 days Time of Disposition: 11:28
[2017-06-26 11:33] VITALS: RESP 18
[2017-06-26 13:55] VITALS: BP 136/89; PULSE 95; TEMP 98.1
[2017-06-26] MEDS ORDERED: NICOTINE 14MG/24HR PATCH TRANSDERM SCH (15:30)
--- NOTE | 2017-06-26 18:38 | HP ---
HISTORY AND PHYSICAL CHIEF COMPLAINT: A 47-year-old, acute alcohol intoxication. He denies any fever, chills, chest pain, shortness of breath. Chronic back pain. Complains of depression. Psychiatry has been consulted. States he did not hit his head. Did not lose consciousness and no focal weakness. His alcohol level is over 400. He is admitted for 24 hours for alcohol withdrawal. ALLERGIES: NO KNOWN DRUG ALLERGIES EXCEPT CODEINE. Placed on CIWA protocol. REVIEW OF SYSTEMS: Fourteen point review of systems negative except for mentioned above. PAST MEDICAL HISTORY: GERD, GI bleed, hypertension and alcoholic gastritis, possible upper GI bleed in the past, history of anxiety and depression, panic disorder, daily alcohol abuse, marijuana user. FAMILY HISTORY: Sister, three sisters negative. Son negative. Father negative. Mother negative. PHYSICAL EXAM: Vital signs stable. Afebrile. CARDIOVASCULAR: S1, S2. Lungs transmitted upper airway sounds. Constitutional: Weak and disheveled. GI: Soft, normal bowel sounds. No masses. EXTREMITIES: No cyanosis, clubbing, edema. Back: Normal on inspection. NEUROLOGIC: Cranial nerves are intact. No tremor is seen. Psych fair mood and affect. Denies suicidal ideations. Temp 96.9, pulse 76, respirations 12-16, blood pressure 150s/90s, O2 98% on room air. ASSESSMENT: 1. Acute alcohol intoxication. 2. Dehydration. 3. CIWA protocol. 4. Dry mouth. 5. He will be discharged home. 6. Depression. We will get psychiatry consult. MMODL / IJN: [id number] /
[2017-06-26] MEDS ORDERED: FAMOTIDINE 20 MG TAB PO SCH (21:00)
== END 2017-06-26 18:05 | disposition left against medical advice (07) ==
LOC: EC 09:00 → 3OBS 11:29
PROVIDERS: ADMIT Family Medicine; ATTEND Family Medicine
DX: F10.239 Alcohol dependence with withdrawal, unspecified (principal); F10.229 Alcohol dependence with intoxication, unspecified; Y90.8 Blood alcohol level of 240 mg/100 ml or more; E86.0 Dehydration; F32.9 Major depressive disorder, single episode, unspecified; Z88.5 Allergy status to narcotic agent; G89.29 Other chronic pain; M54.9 Dorsalgia, unspecified
CPT/HCPCS: 99285; 36415; 80320; G0378; S4990